=== PATIENT | female | born 1990 | race African-American/Black ===

== ENCOUNTER 2016-04-22 18:04 | Inpatient (IN) | payer OTHER ==
[~2016-04-22] VITALS: Ht 152.4 cm; Wt 48.8 kg
[~2016-04-22 18:04] MED LIST: ALBU1AER9 INH; BCPILLS PO; BECL0.072 INH; DICY20TA35 PO; FERR1TAB13 PO; HYOS0.1255 PO; LORA10CA2 PO; MAGN400T6 PO; MYCO500T4 PO; TACR1CAP PO; URSO300C4 PO
[2016-04-22] MEDS ORDERED: QVRINH80 INH (18:41)
[2016-04-22] MEDS ORDERED: ALBU18002 INH (18:41)
[2016-04-22 20:20] LABS: HEMATOCRIT 23.3 % (37-47); MEAN CORPUSCULAR HEMOGLOBIN 21.9 pg (25-34); MEAN CORPUSCULAR HGB CONC 29.6 g/dl (32-36); PLATELET COUNT 102 K/uL (130-400); RED BLOOD COUNT 3.15 M/uL (4.2-5.4); WHITE BLOOD COUNT 2.44 K/uL (4.8-10.8)
[2016-04-22 20:23] LABS: ALT/SGPT 50 U/L (12-78); BLOOD UREA NITROGEN 8 mg/dl (7-18); BUN/CREATININE RATIO 14.2 (10-20); CALCIUM 8.3 mg/dl (8.5-10.1); CARBON DIOXIDE 21 mmol/L (21-32); CHLORIDE 111 mmol/L (98-107); CREATININE 0.55 mg/dl (0.60-1.20); GLUCOSE 102 mg/dl (70-99); POTASSIUM 3.9 mmol/L (3.5-5.1); SODIUM 142 mmol/L (136-145)
[2016-04-22 20:26] LABS: ALB/GLOB RATIO 0.7 (0.9-2); ALKALINE PHOSPHATASE 307 U/L (45-117); AST/SGOT 39 U/L (15-37)
[2016-04-22 20:43] LABS: BASO % 0.4 %; BASO ABS # 0.01 K/uL (0-0.2); COMPLETE YES; EOS % 10.2 %; GIANT PLATELETS 1+; HYPOCHROMIA PRESENT; LYMPH ABS # 0.39 K/uL (1.2-3.4); MONO % 3.3 %; NEUT % 70.1 %; OVALOCYTES 1+; SCHISTOCYTES 1+
[2016-04-22 21:35] LABS: MAGNESIUM 1.6 mg/dl (1.8-2.4); THYROID STIMULATING HORMONE 1.54 uIu/ml (0.300-4.500)
--- NOTE | 2016-04-22 22:27 | DIAGNOSTIC IMAGING REPORT ---
CHEST ONE VIEW PORTABLE CLINICAL HISTORY: sob dyspnea COMPARISON STUDY: 09/10/2015 FINDINGS: Small parenchymal infiltrate medial right base. Lungs otherwise appear clear. Lateral diaphragms smooth. Costophrenic angles are sharp. IMPRESSION: Very small parenchymal infiltrate medial right base Electronically signed by: Peng Soliz M.D. 04/22/2016 10:25 PM Dictated Date/Time: 04/22/2016 10:25 PM
[2016-04-22] MEDS ORDERED: LEVALBUTEROL/IPRATROPIUM NEB INH PRN (22:30)
[2016-04-22] MEDS ORDERED: LORAZEPAM 2 MG/ML 1 ML VIAL IV PRN (22:30)
[2016-04-22] MEDS ORDERED: ACETAMINOPHEN 325 MG TAB PO PRN (22:30)
[2016-04-22] MEDS ORDERED: MoRPHine SULFATE 2 MG/ML CARP IV PRN (22:30)
[2016-04-22] MEDS ORDERED: ONDANSETRON INJ 2 MG/ML 2 ML VIAL IV PRN (22:30)
[2016-04-22 22:33] LABS: INR 1.1 (0.9-1.1); PROTHROMBIN TIME (PATIENT) 11.7 SECONDS (9.0-12.0)
--- NOTE | 2016-04-22 22:59 | EMERGENCY ROOM VISIT NOTE ---
History Report prepared by Susana: Elie De Leon Under the Supervision of: Dr. Freddie Rock M.D. First contact with patient: 19:52 Chief Complaint: ABNORMAL LABS Stated Complaint: LOW BLOOD COUNT,HEADACHE,LOW BACK/LEG PAIN History of Present Illness The patient is a 26 year old female who presents to the Emergency Room with complaints of acute anemia. The patient had her blood drawn two days ago, which showed a hemoglobin that was under 7. The patient's father states that "she needs some blood." The patient noticed some bright red blood in her stools today. She also became lightheaded and short of breath at approximately 1200 today. The patient denies any fevers or melena. She has chronic abdominal pain which is unchanged over the past 6 months. The patient follows up with the [facility], but notes that she has not seen her PCP recently. She also follows up with the [facility] team as she has had two liver transplants. The patient has needed transfusions before. The patient has irregular menstrual cycles. She is not currently on her period. Her last period was not excessively heavy. She has had workup for anemia which did not reveal any etiology. Source of History: patient, parent Onset: two days ago Position: other (hemoglobin) Symptom Intensity: less than 7 Quality: other (anemic) Associated Symptoms: + SOB, + hematochezia, No fevers, No melena Note: Positive lightheadedness. Review of Systems See HPI for pertinent positives & negatives. A total of 10 systems reviewed and were otherwise negative. Past Medical & Surgical Medical Problems: (1) Anemia (2) Congenital biliary atresia (3) Gastrointestinal hemorrhage (4) Symptomatic anemia (5) Transplantation of liver Surgical Problems: (1) H/O colonoscopy (2) H/O liver transplant (3) History of esophagogastroduodenoscopy (EGD) Family History Patient reports no known family medical history. Social History Smoking Status: Never Smoker Alcohol Use: none Drug Use: none Marital Status: single Housing Status: lives with family Occupation Status: employed Current/Historical Medications Scheduled Beclomethasone Dip (Qvar), 1 PUFF INH BID Control Pills ( Control Pills), 1 TAB PO DAILY Dicyclomine Hcl (Bentyl), 20 MG PO QPM Ferrous Sulfate (Kp Ferrous Sulfate), 1 TAB PO BID Loratadine (Claritin), 1 CAP PO BID Mycophenolate Mofetil (Cellcept), 2 TAB PO QAM Tacrolimus (Prograf), 3 CAP PO BID Ursodiol (Actigall), 300 MG PO BID Scheduled PRN Albuterol Sulfate (Proair Respiclick), 2 PUFFS INH QID PRN for Wheezing Allergies Coded Allergies: No Known Allergies (Unverified , 04/22/16) Physical Exam Vital Signs Date Time Temp Pulse Resp B/P Pulse Ox O2 Delivery O2 Flow Rate FiO2 04/22/16 22:36 112 16 129/78 100 Room Air 04/22/16 20:56 106 20 111/63 98 Room Air 04/22/16 18:27 37.3 115 18 122/79 100 Room Air Physical Exam Constitutional: Vital signs reviewed. Eyes: Pupils are equal round reactive to light. Conjunctiva are noninjected. ENT: Pharynx is clear without erythema or exudate. Mucous membranes are moist. Neck supple without meningeal signs. Respiratory: Clear to auscultation bilaterally. Breath sounds are equal bilaterally. Cardiovascular: Regular rate and rhythm. No rubs or gallops. GI: Diffuse scarring to the abdomen. No tenderness. Bowel sounds are present. Musculoskeletal: No peripheral edema. Integumentary: No cyanosis. Neurological: The patient is awake and alert. No focal deficits. Psychiatric: Normal affect. Rectal: No fissures or hemorrhoids. Brown stool without gross blood. There was blood around the genital region. Guaiac positive, possible menstrual blood contamination. Medical Decision & Procedures Laboratory Results 04/22/16 19:54 Red Blood Count 3.15, Mean Corpuscular Volume 74.0, Mean Corpuscular Hemoglobin 21.9, Mean Corpuscular Hemoglobin Concent 29.6, Neutrophils (%) (Auto) 70.1, Lymphocytes (%) (Auto) 16.0, Monocytes (%) (Auto) 3.3, Eosinophils (%) (Auto) 10.2, Basophils (%) (Auto) 0.4, Neutrophils # (Auto) 1.71, Lymphocytes # (Auto) 0.39, Monocytes # (Auto) 0.08, Eosinophils # (Auto) 0.25, Basophils # (Auto) 0.01 04/22/16 19:54 Test 04/22/16 19:54 04/22/16 22:12 White Blood Count 2.44 K/uL (4.8-10.8) Red Blood Count 3.15 M/uL (4.2-5.4) Hemoglobin 6.9 g/dL (12.0-16.0) Hematocrit 23.3 % (37-47) Mean Corpuscular Volume 74.0 fL (80-100) Mean Corpuscular Hemoglobin 21.9 pg (25-34) Mean Corpuscular Hemoglobin Concent 29.6 g/dl (32-36) Platelet Count 102 K/uL (130-400) Neutrophils (%) (Auto) 70.1 % Lymphocytes (%) (Auto) 16.0 % Monocytes (%) (Auto) 3.3 % Eosinophils (%) (Auto) 10.2 % Basophils (%) (Auto) 0.4 % Neutrophils # (Auto) 1.71 K/uL (1.4-6.5) Lymphocytes # (Auto) 0.39 K/uL (1.2-3.4) Monocytes # (Auto) 0.08 K/uL (0.11-0.59) Eosinophils # (Auto) 0.25 K/uL (0-0.5) Basophils # (Auto) 0.01 K/uL (0-0.2) RDW Standard Deviation 49.5 fL (36.4-46.3) RDW Coefficient of Variation 18.1 % (11.5-14.5) Immature Granulocyte % (Auto) 0.0 % Immature Granulocyte # (Auto) 0.00 K/uL (0.00-0.02) Giant Platelets 1+ Hypochromasia PRESENT Ovalocytes 1+ Schistocytes 1+ Anion Gap 10.0 mmol/L (3-11) Est Creatinine Clear Calc Drug Dose 113.3 ml/min Estimated GFR () > 150.0 Estimated GFR (Non- 131.3 BUN/Creatinine Ratio 14.2 (10-20) Calcium Level 8.3 mg/dl (8.5-10.1) Magnesium Level 1.6 mg/dl (1.8-2.4) Total Bilirubin 0.4 mg/dl (0.2-1) Aspartate Amino Transf (AST/SGOT) 39 U/L (15-37) Alanine Aminotransferase (ALT/SGPT) 50 U/L (12-78) Alkaline Phosphatase 307 U/L (45-117) Total Protein 6.5 gm/dl (6.4-8.2) Albumin 2.7 gm/dl (3.4-5.0) Globulin 3.8 gm/dl (2.5-4.0) Albumin/Globulin Ratio 0.7 (0.9-2) Thyroid Stimulating Hormone (TSH) 1.540 uIu/ml (0.300-4.500) Prothrombin Time 11.7 SECONDS (9.0-12.0) Prothromb Time International Ratio 1.1 (0.9-1.1) Activated Partial Thromboplast Time 25.0 SECONDS (21.0-31.0) Partial Thromboplastin Ratio 1.0 Laboratory results as reviewed by me. ED Course 1954: The patient was evaluated in room B6. A complete history and physical exam was performed. 2029: Discussed the results with her and her father. 2034: Spoke with Rossana Michael. The patient will be evaluated. Medical Decision This is a 26-year-old female presents with severe anemia. I did perform a limited focused review of portions of the patient's old chart on the electronic medical record. The patient had a hemoglobin of 7.2 in December of last year. I did evaluate the patient as noted above. The patient complained of rectal bleeding but she just recently had her menstrual period. When I performed a rectal examination she had what appeared to be menstrual blood near her genitalia. Her rectal examination showed guaiac positive brown stool but this was likely contaminated from her menstrual blood. IV access was established. I did review the patient's blood work as noted in the electronic medical record. She is severely anemic. She also has pancytopenia. I did recommend admission and transfusion. I did discuss case with the hospitalist and showcase maker. Consults Time Called: 2029 Consulting Physician: Rossana Michael Returned Call: 2034 2034: Spoke with Rossana Michael. The patient will be evaluated. Impression Primary Impression: Symptomatic anemia Additional Impressions: Pancytopenia Transplantation of liver Scribe Attestation The scribe's documentation has been prepared under my direct and personally reviewed by me in its entirety. I confirm that the note above accurately reflects all work, treatment, procedures, and medical decision making performed by me. Departure Information Dispostion Being Evaluated By Hospitalist Referrals Julia Ibrahim PA-C (PCP) Patient Instructions My [facility] Problem Qualifiers
[2016-04-22] MEDS ORDERED: MAGNESIUM SULFATE 1GM / D5W 1 GM BAG IV SCH (23:00)
[2016-04-22] MEDS ORDERED: LORAZEPAM INJ 0.5 MG in SYRINGE 0.75 ML IV PRN (23:15)
[2016-04-22] MEDS ORDERED: LEVALBUTEROL 1.25MG/0.5ML NEB INH PRN (23:15)
[2016-04-22] MEDS ORDERED: IPRATROPIUM BROMIDE NEB SOLN 0.02% 2.5 ML VIAL INH PRN (23:15)
[2016-04-22] MEDS ORDERED: MAGNESIUM SULFATE 1GM / D5W 1 GM in PREMIXED IN D5W 100 ML IV ONE (23:30)
[2016-04-23] VITALS (13 sets, daily range): BP systolic 107–128; BP diastolic 65–85; PULSE 89–109; TEMP 36.9–37.3; O2SAT 96–100; Ht 152.4 cm; Wt 48.8 kg
[2016-04-23] MEDS: TRAMADOL HCL 50 MG TAB PO PRN ×2 (00:14→23:59)
[2016-04-23 05:37] LABS: MANUAL MICROSCOPIC REQUIRED? YES; PREG INTERNAL NEGATIVE QC NEG CLEAR BACKGROUND; PREG INTERNAL POSITIVE QC POS CONTROL LINE; URINE APPEARANCE TURBID (CLEAR); URINE BILIRUBIN NEG (NEG); URINE COLOR RED; URINE NITRITE NEG (NEG); URINE PH 6.5 (4.5-7.5); URINE SPECIFIC GRAVITY 1.025 (1.000-1.030); UROBILINOGEN NEG (NEG)
[2016-04-23 05:39] LABS: REVIEW REQ? NO
[2016-04-23 05:42] LABS: URINE RBC >30 /hpf (0-4)
[2016-04-23 05:43] LABS: URINE BACTERIA NEG (NEG)
--- NOTE | 2016-04-23 05:58 | DIAGNOSTIC IMAGING REPORT ---
[facility] ultrasound (LIVER) ABDOMEN LIMITED CLINICAL HISTORY: r abd pain posse cirrhosis pain TECHNIQUE: Ultrasound COMPARISON STUDY: FINDINGS: Fatty infiltration of liver. Prior liver transplant. Right kidney negative for hydronephrosis. Main structures poorly seen due to overlying bowel content. IMPRESSION: Fatty infiltration of liver. No evidence of biliary ductal distention. Prior transplant. Electronically signed by: Peng Soliz M.D. 04/23/2016 5:57 AM Dictated Date/Time: 04/23/2016 5:55 AM
[2016-04-23 06:10] LABS: HEMATOCRIT 24.8 % (37-47); MEAN CELL VOLUME 73.2 fL (80-100); MEAN CORPUSCULAR HEMOGLOBIN 22.7 pg (25-34); RED BLOOD COUNT 3.39 M/uL (4.2-5.4); WHITE BLOOD COUNT 2.55 K/uL (4.8-10.8)
[2016-04-23 06:20] LABS: BASO % 0.4 %; BASO ABS # 0.01 K/uL (0-0.2); COMPLETE YES; EOS % 11.8 %; IG% 0.4 %; LYMPH % 17.6 %; LYMPH ABS # 0.45 K/uL (1.2-3.4); MONO % 3.9 %; NEUT % 65.9 %; PLATELET COUNT 89 K/uL (130-400); PLT ESTIMATE DECREASED; TEAR DROP CELLS 1+
[2016-04-23 06:34] LABS: BLOOD UREA NITROGEN 7 mg/dl (7-18); BUN/CREATININE RATIO 12.9 (10-20); CALCIUM 7.8 mg/dl (8.5-10.1); CARBON DIOXIDE 22 mmol/L (21-32); CHLORIDE 110 mmol/L (98-107); CREATININE 0.53 mg/dl (0.60-1.20); GLUCOSE 107 mg/dl (70-99); POTASSIUM 3.9 mmol/L (3.5-5.1); SODIUM 140 mmol/L (136-145)
[2016-04-23 06:47] LABS: LARGE PLATELETS 1+
--- NOTE | 2016-04-23 07:03 | HISTORY & PHYSICAL EXAMINATION ---
DATE OF ADMISSION: 04/22/2016 PRIMARY CARE PHYSICIAN: Julia Ibrahim PA-C, Carl Tracy. Hx obtained from px and records. CHIEF COMPLAINT: Anemia, abnormal blood work. HISTORY OF PRESENT ILLNESS: Medical history significant for history of biliary atresia status post liver transplantation on CellCept, Prograf meds, chronic pancytopenia (baseline hemoglobin of 7-8), hx internal hemorrhoids. Hypothyroidism. Recent confinement September 2015 for acute on chronic iron deficiency anemia. Patient underwent blood transfusion. EGD normal. Patient was seen at the ER last November of 2015 for abdominal pain. CAT scan showed no acute process in the abdomen and pelvis, mild appendiceal dilatation, stable appearance of a transplanted liver with mild periportal edema pneumobilia. No significant change in splenomegaly, upper abdominal varices. The last few days, patient noted headache, tachycardia, shortness of breath on exertion, symptoms of anemia as per px. denies cp, cough sx Some vaginal bleeding with usual cramps. Patient not sure of she has her period due to irregular menses as per father. Usual achy abdominal pain more on the right. Hematochezia, some blood streaking noted in the stools yesterday. No fever/chills. Outpatient blood work noted hemoglobin of 7.2. [facility]'s [facility] ship fastener (Dr. Nelson) recommended transfusion. MEDICAL HISTORY: As above. Patient currently following up with [facility]ematology and [facility], and [place] [facility]. Patient supposed to meet with patient's ship fastener May 05 to discuss etiology of anemia w/ results of recent bone marrow studies. Colonoscopy in 2016 showed internal hemorrhoids. SURGERIES: She had liver transplantation HOME MEDICATIONS: Include CellCept, Prograf, Actigall ProAir, QVAR, control pills, Bentyl, ferrous sulfate, Claritin. ALLERGIES: No known drug allergies. FAMILY HISTORY: Unknown. ethnicity, px adopted PERSONAL AND SOCIAL HISTORY: Nonsmoker. No chronic intake of alcoholic beverages. 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 REVIEW OF SYSTEMS: As per HPI, all other ROS negative. PHYSICAL EXAMINATION: VITAL SIGNS: Blood pressure was noted to be 119/80, pulse rate 109, respiratory rate 18, temperature 38, sats 100 on room air. GENERAL: Comfortable, no respiratory distress. SKIN: Pallor. HEENT: Pale palpebral conjunctivae. Dry mucosa. NECK: No JVD. supple CHEST: Decreased breath sounds. HEART: Tachycardic. ABDOMEN: healed abd sars. No overt tenderness, some distention. EXTREMITIES: No edema, no tenderness. NEUROLOGIC: No gross focality. LABS: Hemoglobin was noted to be 6.9, hematocrit 20.3, white cells 2, platelets 102. Sodium 140, potassium 3.9, chloride 111, CO2 of 21, BUN 8, creatinine 0.65, glucose 102. TSH 1.64. AST 39, ALT N, ALP 307 Chest x-ray; atelectasis, question of infiltrate in the L base. Liver ultrasound initial read showed echogenic heterogenous liver, hepatomegaly 17.8 cm, no ascites. ASSESSMENT: 1. Symptomatic anemia history of chronic pancytopenia Hg drop from baseline 2 to slow GI bleed bleed contributory (occ vaginal bleeding- not a new problem as per px) 2. abn liver US varices and splenomegaly on CAT scan in November 2014. ? cirrhosis history of biliary atresia sp liver transplantation on Prograf and Cellcept 3. hypothyroidism, euthyroid as of today's TSH PLAN: Transfuse pRBC to maintain hemoglobin between 7-8 GI consult RE abn liver US ? possible cirrhosis. 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 DVT prophylaxis, SCDs. RE Thrombocytopenia. Full code. MTDD
[2016-04-23] MEDS: URSODIOL 300 MG CAP PO SCH ×2 (07:54→19:47)
[2016-04-23] MEDS: TACROLIMUS 1 MG CAP PO SCH ×2 (07:55→19:47)
[2016-04-23] MEDS: MYCOPHENOLATE MOFETIL 250 MG CAP (CELLCEPT) PO SCH (07:55)
[2016-04-23] MEDS: LORATADINE 10 MG TAB PO SCH ×2 (07:55→19:47)
[2016-04-23] MEDS: BECLOMETHASONE DIP HFA 80 MCG 8.7G INH INH SCH ×2 (07:56→19:47)
[2016-04-23] MEDS: FERROUS SULFATE 325 MG TAB PO SCH ×2 (07:56→19:47)
[2016-04-23] MEDS ORDERED: INFLUENZA VIRUS QUAD VACCINE 0.5 ML SYR IM. ONE (08:00)
[2016-04-23] MEDS ORDERED: INFLUENZA ADMINISTRATION CHARGE ONE (08:00)
[2016-04-23 08:13] LABS: HYPOCHROMIA PRESENT; MICROCYTOSIS PRESENT
--- NOTE | 2016-04-23 09:55 | Progress Note ---
Medicine Progress Note Date & Time of Visit: Apr 23, 2016 at 09:45. Subjective patient seen resting in bed, comfortable in good spirits, states she feels improved today denies chest pain, dyspnea, dizziness, nausea no abdominal pain reports hematuria since last night, intermittent right flank pain and dysuria- mild no vaginal spotting denies hematochezia no other symptoms Objective Last 8 Hrs Date Time Temp Pulse Resp B/P Pulse Ox O2 Delivery O2 Flow Rate FiO2 04/23/16 07:11 36.9 96 18 110/72 98 Room Air 04/23/16 02:15 36.9 95 16 127/65 99 Physical Exam: General- oriented x 3, not in distress, speaks in sentences with no effort Head- atraumatic Eyes- EOMI, anicteric, pale conjunctivae Neck- supple, no JVD Lungs- clear to auscultation b/l Heart- regular rhythm; no murmur, normal rate Abdomen- normal bowel sounds, soft, nontender,no CVA tenderness Extremities- no pretibial edema, no calf tenderness Neuro- alert, oriented x 3; no gross deficits Skin- warm & dry Laboratory Results: Last 24 Hours Test 04/22/16 19:54 04/22/16 22:12 04/23/16 05:10 04/23/16 05:20 White Blood Count 2.44 K/uL 2.55 K/uL Red Blood Count 3.15 M/uL 3.39 M/uL Hemoglobin 6.9 g/dL 7.7 g/dL Hematocrit 23.3 % 24.8 % Mean Corpuscular Volume 74.0 fL 73.2 fL Mean Corpuscular Hemoglobin 21.9 pg 22.7 pg Mean Corpuscular Hemoglobin Concent 29.6 g/dl 31.0 g/dl Platelet Count 102 K/uL 89 K/uL Neutrophils (%) (Auto) 70.1 % 65.9 % Lymphocytes (%) (Auto) 16.0 % 17.6 % Monocytes (%) (Auto) 3.3 % 3.9 % Eosinophils (%) (Auto) 10.2 % 11.8 % Basophils (%) (Auto) 0.4 % 0.4 % Neutrophils # (Auto) 1.71 K/uL 1.68 K/uL Lymphocytes # (Auto) 0.39 K/uL 0.45 K/uL Monocytes # (Auto) 0.08 K/uL 0.10 K/uL Eosinophils # (Auto) 0.25 K/uL 0.30 K/uL Basophils # (Auto) 0.01 K/uL 0.01 K/uL RDW Standard Deviation 49.5 fL 47.4 fL RDW Coefficient of Variation 18.1 % 17.5 % Immature Granulocyte % (Auto) 0.0 % 0.4 % Immature Granulocyte # (Auto) 0.00 K/uL 0.01 K/uL Giant Platelets 1+ Hypochromasia PRESENT PRESENT Ovalocytes 1+ Schistocytes 1+ Sodium Level 142 mmol/L 140 mmol/L Potassium Level 3.9 mmol/L 3.9 mmol/L Chloride Level 111 mmol/L 110 mmol/L Carbon Dioxide Level 21 mmol/L 22 mmol/L Anion Gap 10.0 mmol/L 8.0 mmol/L Blood Urea Nitrogen 8 mg/dl 7 mg/dl Creatinine 0.55 mg/dl 0.53 mg/dl Est Creatinine Clear Calc Drug Dose 113.3 ml/min 117.6 ml/min Estimated GFR () > 150.0 > 150.0 Estimated GFR (Non- 131.3 132.9 BUN/Creatinine Ratio 14.2 12.9 Random Glucose 102 mg/dl 107 mg/dl Calcium Level 8.3 mg/dl 7.8 mg/dl Magnesium Level 1.6 mg/dl 2.0 mg/dl Total Bilirubin 0.4 mg/dl Aspartate Amino Transf (AST/SGOT) 39 U/L Alanine Aminotransferase (ALT/SGPT) 50 U/L Alkaline Phosphatase 307 U/L Total Protein 6.5 gm/dl Albumin 2.7 gm/dl Globulin 3.8 gm/dl Albumin/Globulin Ratio 0.7 Thyroid Stimulating Hormone (TSH) 1.540 uIu/ml Prothrombin Time 11.7 SECONDS Prothromb Time International Ratio 1.1 Activated Partial Thromboplast Time 25.0 SECONDS Partial Thromboplastin Ratio 1.0 Platelet Estimate DECREASED Large Platelets 1+ Microcytosis PRESENT Tear Drop Cells 1+ Urine Color RED Urine Appearance TURBID Urine pH 6.5 Urine Specific [place] 1.025 Urine Protein TRACE Urine Glucose (UA) NEG Urine Ketones NEG Urine Occult Blood 3+ Urine Nitrite NEG Urine Bilirubin NEG Urine Urobilinogen NEG Urine Leukocyte Esterase NEG Urine RBC >30 /hpf Urine WBC 10-30 /hpf Urine Epithelial Cells 5-10 /lpf Urine Bacteria NEG Urine Test NEG Assessment & Plan 26 year old female with history of Biliary Atresia s/p Liver Transplant, Iron deficiency Anemia, Asthma... 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 BILIARY ATRESIA S/P LIVER TRANSPLANT - on Cellcept, Tacrolimus ASTHMA on QVAR PANCYTOPENIA WBC and Plt stable DVT prophylaxis SCDs Disposition pending anticipate d/c home when medically stable Current Inpatient Medications: Current Inpatient Medications Medications (Trade) Dose Ordered Sig/Harley Route Start Time Stop Time Status Last Admin Dose Admin Acetaminophen (Tylenol Tab) 325 mg Q6H PRN PO 04/22/16 22:30 05/22/16 22:29 04/23/16 09:41 325 MG Beclomethasone Dipropionate (Qvar 80 Mcg Hfa Inhaler) 1 puffs BID INH 04/23/16 08:00 05/23/16 08:59 04/23/16 07:56 1 PUFFS Dicyclomine HCl (Bentyl Tab) 20 mg QPM PO 04/23/16 21:00 05/23/16 20:59 Loratadine (Claritin Tab) 10 mg BID PO 04/23/16 08:00 05/23/16 08:59 04/23/16 07:55 10 MG Mycophenolate Mofetil (Cellcept Cap) 1,000 mg QAM PO 04/23/16 08:00 05/23/16 08:59 04/23/16 07:55 1,000 MG Tacrolimus (Prograf Cap) 3 mg BID PO 04/23/16 08:00 05/23/16 08:59 04/23/16 07:55 3 MG Ursodiol (Actigall Cap) 300 mg BID PO 04/23/16 08:00 05/23/16 08:59 04/23/16 07:54 300 MG Ferrous Sulfate (Feosol Tab) 325 mg BID PO 04/23/16 08:00 05/23/16 08:59 Lorazepam (Ativan Inj) 0.5 mg Q4H PRN IV 04/22/16 22:30 05/22/16 22:29 Tramadol HCl (Ultram Tab) 25 mg Q6H PRN PO 04/22/16 22:30 05/22/16 22:29 04/23/16 00:14 25 MG Morphine Sulfate (MoRPHine SULFATE INJ) 2 mg Q3H PRN IV 04/22/16 22:30 05/06/16 22:29 Ondansetron HCl (Zofran Inj) 4 mg Q6H PRN IV 04/22/16 22:30 05/22/16 22:29 Ipratropium Arvonia (Atrovent 0.02% 0.5MG/2.5ML Neb) 0.5 mg Q4H PRN INH 04/22/16 23:15 05/22/16 23:14 Levalbuterol 1.25 mg 1.25 mg Q4H PRN INH 04/22/16 23:15 05/22/16 23:14 Lorazepam/Syringe (Ativan Inj/ Syringe) 1 ml @ 1 mls/min Q4H PRN IV 04/22/16 23:15 05/22/16 23:14
--- NOTE | 2016-04-23 11:21 | Urology Consultation ---
History General Date of Service: Apr 23, 2016. Chief Complaint: gross hematuria Primary Care Physician: Julia Ibrahim PA-C History of Present Illness I am asked by Dr Weaver to evaluate and treat patient for gross hematuria. She is admitted with anemia for transfusion. She has had gross hematuria in past with utis. Her urine is red and has clots. She has mild dysuria. She has been given ceftriaxone. She has right flank pain with is dull and causes pressure in her low back and abdomen. No nausea or emesis. U/A in ER showed blood but no LE or nitrites. Imaging Imaging: CT, Ultrasound Laboratory Results Past 24 Hours Test 04/22/16 19:54 04/22/16 22:12 04/23/16 05:10 04/23/16 05:20 Range/Units White Blood Count 2.44 2.55 4.8-10.8 K/uL Red Blood Count 3.15 3.39 4.2-5.4 M/uL Hemoglobin 6.9 7.7 12.0-16.0 g/dL Hematocrit 23.3 24.8 37-47 % Mean Corpuscular Volume 74.0 73.2 80-100 fL Mean Corpuscular Hemoglobin 21.9 22.7 25-34 pg Mean Corpuscular Hemoglobin Concent 29.6 31.0 32-36 g/dl Platelet Count 102 89 130-400 K/uL Neutrophils (%) (Auto) 70.1 65.9 % Lymphocytes (%) (Auto) 16.0 17.6 % Monocytes (%) (Auto) 3.3 3.9 % Eosinophils (%) (Auto) 10.2 11.8 % Basophils (%) (Auto) 0.4 0.4 % Neutrophils # (Auto) 1.71 1.68 1.4-6.5 K/uL Lymphocytes # (Auto) 0.39 0.45 1.2-3.4 K/uL Monocytes # (Auto) 0.08 0.10 0.11-0.59 K/uL Eosinophils # (Auto) 0.25 0.30 0-0.5 K/uL Basophils # (Auto) 0.01 0.01 0-0.2 K/uL RDW Standard Deviation 49.5 47.4 36.4-46.3 fL RDW Coefficient of Variation 18.1 17.5 11.5-14.5 % Immature Granulocyte % (Auto) 0.0 0.4 % Immature Granulocyte # (Auto) 0.00 0.01 0.00-0.02 K/uL Giant Platelets 1+ Hypochromasia PRESENT PRESENT Ovalocytes 1+ Schistocytes 1+ Sodium Level 142 140 136-145 mmol/L Potassium Level 3.9 3.9 3.5-5.1 mmol/L Chloride Level 111 110 98-107 mmol/L Carbon Dioxide Level 21 22 21-32 mmol/L Anion Gap 10.0 8.0 3-11 mmol/L Blood Urea Nitrogen 8 7 7-18 mg/dl Creatinine 0.55 0.53 0.60-1.20 mg/dl Est Creatinine Clear Calc Drug Dose 113.3 117.6 ml/min Estimated GFR () > 150.0 > 150.0 Estimated GFR (Non- 131.3 132.9 BUN/Creatinine Ratio 14.2 12.9 10-20 Random Glucose 102 107 70-99 mg/dl Calcium Level 8.3 7.8 8.5-10.1 mg/dl Magnesium Level 1.6 2.0 1.8-2.4 mg/dl Total Bilirubin 0.4 0.2-1 mg/dl Aspartate Amino Transf (AST/SGOT) 39 15-37 U/L Alanine Aminotransferase (ALT/SGPT) 50 12-78 U/L Alkaline Phosphatase 307 45-117 U/L Total Protein 6.5 6.4-8.2 gm/dl Albumin 2.7 3.4-5.0 gm/dl Globulin 3.8 2.5-4.0 gm/dl Albumin/Globulin Ratio 0.7 0.9-2 Thyroid Stimulating Hormone (TSH) 1.540 0.300-4.500 uIu/ml Prothrombin Time 11.7 9.0-12.0 SECONDS Prothromb Time International Ratio 1.1 0.9-1.1 Activated Partial Thromboplast Time 25.0 21.0-31.0 SECONDS Partial Thromboplastin Ratio 1.0 Platelet Estimate DECREASED Large Platelets 1+ Microcytosis PRESENT Tear Drop Cells 1+ Urine Color RED Urine Appearance TURBID CLEAR Urine pH 6.5 4.5-7.5 Urine Specific [place] 1.025 1.000-1.030 Urine Protein TRACE NEG Urine Glucose (UA) NEG NEG Urine Ketones NEG NEG Urine Occult Blood 3+ NEG Urine Nitrite NEG NEG Urine Bilirubin NEG NEG Urine Urobilinogen NEG NEG Urine Leukocyte Esterase NEG NEG Urine RBC >30 0-4 /hpf Urine WBC 10-30 0-5 /hpf Urine Epithelial Cells 5-10 0-5 /lpf Urine Bacteria NEG NEG Urine Test NEG NEG Labs were reviewed and are within normal limits unless listed below. Labs are available in the chart and at [facility] Problem List Medical Problems: (1) Abdominal pain Status: Acute (2) Pancytopenia Status: Acute (3) Right lower quadrant abdominal pain Status: Acute (4) RLQ abdominal pain Status: Acute Past History liver disease (s/p liver transplant as a child ) Family History Patient reports no known family medical history. not contributory for this issue Social History Hx Tobacco Use In Past Year?: No Smoking: non-smoker Alcohol: never Marital status: single Housing status: lives with family Occupation status: employed Allergies Coded Allergies: No Known Allergies (Unverified , 04/22/16) Medications Home Medications: Home Meds and Scripts Medications Dose Route/Sig Max Daily Dose Days Date Category Qvar (Beclomethasone Dip) 80 Mcg/Act Aer 1 Puff INH BID 04/22/16 Reported Proair Respiclick (Albuterol Sulfate) 108 Mcg/Act Aer 2 Puffs INH QID PRN 04/22/16 Reported Control Pills (Miscellaneous) Tab 1 Tab PO DAILY 12/01/15 Reported Kp Ferrous Sulfate (Ferrous Sulfate) 325 Mg Tab 1 Tab PO BID 10/14/15 Reported Claritin (Loratadine) 10 Mg Cap 1 Cap PO BID 09/10/15 Reported Cellcept (Mycophenolate Mofetil) 500 Mg Tab 2 Tab PO QAM 04/13/15 Reported Bentyl (Dicyclomine Hcl) 20 Mg Tab 20 Mg PO QPM 04/03/15 Reported Prograf (Tacrolimus) 1 Mg Cap 3 Cap PO BID 04/03/15 Reported Actigall (Ursodiol) 300 Mg Cap 300 Mg PO BID 11/21/12 Reported Inpatient Medications: Current Inpatient Medications Medications (Trade) Dose Ordered Sig/Harley Route Start Time Stop Time Status Last Admin Dose Admin Acetaminophen (Tylenol Tab) 325 mg Q6H PRN PO 04/22/16 22:30 05/22/16 22:29 04/23/16 09:41 325 MG Beclomethasone Dipropionate (Qvar 80 Mcg Hfa Inhaler) 1 puffs BID INH 04/23/16 08:00 05/23/16 08:59 04/23/16 07:56 1 PUFFS Dicyclomine HCl (Bentyl Tab) 20 mg QPM PO 04/23/16 21:00 05/23/16 20:59 Loratadine (Claritin Tab) 10 mg BID PO 04/23/16 08:00 05/23/16 08:59 04/23/16 07:55 10 MG Mycophenolate Mofetil (Cellcept Cap) 1,000 mg QAM PO 04/23/16 08:00 05/23/16 08:59 04/23/16 07:55 1,000 MG Tacrolimus (Prograf Cap) 3 mg BID PO 04/23/16 08:00 05/23/16 08:59 04/23/16 07:55 3 MG Ursodiol (Actigall Cap) 300 mg BID PO 04/23/16 08:00 05/23/16 08:59 04/23/16 07:54 300 MG Ferrous Sulfate (Feosol Tab) 325 mg BID PO 04/23/16 08:00 05/23/16 08:59 Lorazepam (Ativan Inj) 0.5 mg Q4H PRN IV 04/22/16 22:30 05/22/16 22:29 Tramadol HCl (Ultram Tab) 25 mg Q6H PRN PO 04/22/16 22:30 05/22/16 22:29 04/23/16 00:14 25 MG Morphine Sulfate (MoRPHine SULFATE INJ) 2 mg Q3H PRN IV 04/22/16 22:30 05/06/16 22:29 Ondansetron HCl (Zofran Inj) 4 mg Q6H PRN IV 04/22/16 22:30 05/22/16 22:29 Ipratropium [place] (Atrovent 0.02% 0.5MG/2.5ML Neb) 0.5 mg Q4H PRN INH 04/22/16 23:15 05/22/16 23:14 Levalbuterol 1.25 mg 1.25 mg Q4H PRN INH 04/22/16 23:15 05/22/16 23:14 Lorazepam 0.5 mg/ Syringe 1 ml @ 1 mls/min Q4H PRN IV 04/22/16 23:15 05/22/16 23:14 Ceftriaxone Sodium/Dextrose (Rocephin Inj/ Dextrose Add-[place] 50ML) 50 ml @ 100 mls/hr Q24H IV 04/23/16 10:00 04/28/16 09:59 UNV Review of Systems Review of Systems Constitutional: No fever Neurological: + dizzy Endocrine: + tired/sluggish, + too cold, No excessive thirst, No too hot Gastrointestinal: + abdominal pain, No constipation, No nausea, No vomiting Cardiovascular: No chest pain, No palpitations, No swelling ankles/feet Female : + blood in urine, + painful urination, No frequent urination Physical Exam Vital Signs: Vital Signs Past 12 Hours Date Time Temp Pulse Resp B/P Pulse Ox O2 Delivery O2 Flow Rate FiO2 04/23/16 08:00 Room Air 04/23/16 07:11 36.9 96 18 110/72 98 Room Air 04/23/16 02:15 36.9 95 16 127/65 99 04/23/16 01:10 37.3 105 20 113/69 98 04/23/16 00:40 37.0 101 20 107/67 100 04/23/16 00:20 37.1 104 16 108/71 100 04/23/16 00:05 37.2 103 18 112/70 100 04/23/16 00:00 37.3 109 18 119/76 100 Room Air Physical Exam: General Appearance: no apparent distress, + thin Eyes: bilateral eyes normal inspection ENT: hearing grossly normal Neck: supple, no adenopathy, trachea midline Respiratory/Chest: normal breath sounds, no respiratory distress, no accessory muscle use Gastrointestinal: Abdomen: pertinent finding (numerous surgical incisions healed primarily and secondarily. no mass, no hernia. + RUQ tenderness, + mildly distended) Extremities: non-tender, no calf tenderness Neurologic/Psychiatric: alert, normal mood/affect, oriented x 3 Skin: normal color, warm/dry, no rash Assessment & Plan Assessment & Plan gross hematuria CT scan from 11/21 and ruq u/s rule out stone or malignancy as source this it is inflammation and or infection. I suspect it will resolve itself. I do not plan cysto as I think it has no chance of uncovering pathology yet is invasive and carries risk of causing uti. urine being sent for culture abt if +.
[2016-04-23 12:33] LABS: HEMATOCRIT 26.7 % (37-47)
[2016-04-23] MEDS: CEFTRIAXONE SOD INJ 1 GM in DEXTROSE 5% ADD-VANTAGE 50ML 50 ML IV SCH (15:21)
--- NOTE | 2016-04-23 15:28 | GASTROINTESTINAL CONSULTATION ---
DATE OF CONSULTATION: 04/23/2016 DATE OF CONSULTATION: 04/23/2016. REFERRED BY: Dr. Irizarry. HISTORY OF PRESENT ILLNESS: I was asked by William Irizarry to consult on this woman for evaluation of anemia and abnormal imaging of the GI tract. The patient is a 26-year-old who has a history of biliary atresia and liver transplant x2, most recently in 2006. Her initial liver transplant was in [place] at 10 months of age. She also has a long history of anemia, some chronic low-grade GI bleeding as well as some occasional hematuria. She presented to [facility] because she was found to be anemic by her regular doctor who referred her. She has denied any rectal bleeding. She has denied any hematemesis. She has had gross hematuria recently and recently during this admission seen by urology who has offered some suggestions about this and recommendations. She has had numerous upper and lower endoscopies, all within the past year or so not showing any obvious source of GI bleeding. She is followed regularly at [facility] for her liver transplant and hepatology followup. She is also being followed by hematology because of her chronic anemia as well. Part of her workup during this hospitalization also brought up concerns about abnormal imaging of her spleen with possible varices. PAST MEDICAL HISTORY: I reviewed her medical records and past medical history and her past medical history is significant for what is already mentioned above. OUTPATIENT MEDICATIONS: Include CellCept, Prograf, Actigall, control pills, Bentyl, iron, Claritin. ALLERGIES: She denies any drug allergies. FAMILY HISTORY: She is adopted so her family history is unknown. SOCIAL HISTORY: Not significant for smoking or drinking. REVIEW OF SYSTEMS: As above, otherwise she denies any recent fevers. She denies any recent icterus or jaundice. She has had no change in vision or hearing. She has had no migraines, headaches, seizures recently. She denies any painful urination. She denies any hematemesis, rectal bleeding or altered bowel habits that are new. She has had no recent joint swelling. She denies any change in gait or change in mood recently. She has not been out of the country recently. She denies any productive cough or recent palpitations. PHYSICAL EXAMINATION: GENERAL: Reveals a pleasant woman lying comfortably in bed in no distress. VITAL SIGNS: Her most recent temperature is 37.1, blood pressure is 128/83, pulse is 92. SKIN: Anicteric. HEAD, EYES, EARS, NOSE, AND THROAT: Eyes show anicteric sclerae. Mouth is clear of lesions. NECK: Supple, no adenopathy. CHEST: Clear. HEART: Regular rate and rhythm. ABDOMEN: Diffusely scarred from her 2 liver transplants, but is otherwise nontender. She has good bowel sounds. There are no obvious masses though her abdomen is firm because of scarring. EXTREMITIES: Warm with good distal pulses. No significant edema. NEUROLOGIC: She is alert and oriented x3 and neurologically grossly intact. LABORATORY DATA: Reveal hemoglobin on admission of 6.9 and after transfusion she is up to 8. INR was normal at 1.1. Liver chemistries shows an AST of 39, ALT of 50, alkaline phosphatase of 307, total bilirubin 0.4. An ultrasound of the liver revealed some fatty infiltration in the liver and again there were concerns on previous imaging of splenomegaly and possible abdominal varices. IMPRESSION: A 26-year-old woman status post 2 liver transplants with chronic anemia. Since she has no overt gross GI bleeding. I see no indication for repeat endoscopy. I would just transfuse her and she should follow up with hematology as an outpatient. As far as the findings on her abdominal imaging is concerned this is all typical for being status post liver transplant. She is being followed closely by them. There are no obvious signs of rejection at this point and I would just recommend she continue to follow with them as an outpatient. [place]ALE
[2016-04-23 18:58] LABS: HEMATOCRIT 29.1 % (37-47)
[2016-04-23] MEDS: DICYCLOMINE HCL 20 MG TAB PO SCH (19:47)
[2016-04-24 06:18] LABS: HEMATOCRIT 27.7 % (37-47); MEAN CELL VOLUME 73.9 fL (80-100); MEAN CORPUSCULAR HEMOGLOBIN 22.9 pg (25-34); RED BLOOD COUNT 3.75 M/uL (4.2-5.4); WHITE BLOOD COUNT 2.83 K/uL (4.8-10.8)
[2016-04-24 06:35] LABS: BASO % 0.4 %; BASO ABS # 0.01 K/uL (0-0.2); COMPLETE YES; EOS % 13.4 %; LARGE PLATELETS 1+; LYMPH % 17.3 %; LYMPH ABS # 0.49 K/uL (1.2-3.4); MONO % 4.6 %; NEUT % 64.3 %; PLATELET COUNT 95 K/uL (130-400); PLT ESTIMATE DECREASED; TEAR DROP CELLS 1+
[2016-04-24 06:39] LABS: BLOOD UREA NITROGEN 10 mg/dl (7-18); BUN/CREATININE RATIO 18.2 (10-20); CALCIUM 7.8 mg/dl (8.5-10.1); CARBON DIOXIDE 22 mmol/L (21-32); CHLORIDE 110 mmol/L (98-107); CREATININE 0.53 mg/dl (0.60-1.20); GLUCOSE 104 mg/dl (70-99); POTASSIUM 4.2 mmol/L (3.5-5.1); SODIUM 140 mmol/L (136-145)
[2016-04-24 07:23] VITALS: BP 109/74; PULSE 80; TEMP 36.7; O2SAT 99
[2016-04-24] MEDS: FERROUS SULFATE 325 MG TAB PO SCH ×2 (08:00→20:00)
[2016-04-24] MEDS: MYCOPHENOLATE MOFETIL 250 MG CAP (CELLCEPT) PO SCH (08:12)
[2016-04-24] MEDS: BECLOMETHASONE DIP HFA 80 MCG 8.7G INH INH SCH ×2 (08:12→20:08)
[2016-04-24] MEDS: TACROLIMUS 1 MG CAP PO SCH ×2 (08:12→20:08)
[2016-04-24] MEDS: LORATADINE 10 MG TAB PO SCH ×2 (08:13→20:08)
[2016-04-24] MEDS: URSODIOL 300 MG CAP PO SCH ×2 (08:13→20:08)
--- NOTE | 2016-04-24 09:55 | DIAGNOSTIC IMAGING REPORT ---
RENAL ULTRASOUND HISTORY: Nephrolithiasis r/o nephro/ureterolithiasis COMPARISON: None. FINDINGS: Right kidney: Partially 9 cm maximum dimension. No evidence for hydronephrosis. Normal corticomedullary differentiation and cortical thickness. Left kidney: No evidence for hydronephrosis. Approximate dimension 10.5 cm. Normal corticomedullary differentiation and cortical thickness. Bladder: Poorly seen. A trace amount pelvic ascites. Prior liver transplant. IMPRESSION: Somewhat limited exam. No evidence for obstructive change or hydronephrosis. Electronically signed by: Peng Soliz M.D. 04/24/2016 9:54 AM Dictated Date/Time: 04/24/2016 9:52 AM
--- NOTE | 2016-04-24 10:17 | Progress Note ---
Subjective Date of Service: Apr 24, 2016. Subjective Pt evaluation today including: conversation w/ patient, chart review, lab review Voiding: no voiding problems Patient reports no change. Urine still grossly bloody with clots. Her renal ultrasound was completely unremarkable and no clots seen stuck in bladder. No stones this time or on her ct scan Nov 2015. She has no cystitis symptoms. She is on abt to cover in case because she has had hematuria when she had utis in past. Problem List Medical Problems: (1) Abdominal pain Status: Acute (2) Pancytopenia Status: Acute (3) Right lower quadrant abdominal pain Status: Acute (4) RLQ abdominal pain Status: Acute Review of Systems Constitutional: No chills, No fever Respiratory: No cough, No shortness of breath Abdomen: No nausea, No vomiting Female : + hematuria, No urinary frequency Objective Vital Signs Date Time Temp Pulse Resp B/P Pulse Ox O2 Delivery O2 Flow Rate FiO2 04/24/16 08:00 Room Air 04/24/16 07:23 36.7 80 18 109/74 99 Room Air 04/24/16 00:01 Room Air 04/23/16 23:44 37.3 98 16 121/75 96 Room Air 04/23/16 16:00 Room Air 04/23/16 15:24 37.0 97 16 128/85 99 Room Air 04/23/16 12:35 37.2 92 18 128/83 04/23/16 12:35 37.1 92 16 128/83 04/23/16 12:05 37.2 94 18 114/74 04/23/16 11:50 37.0 89 18 114/74 04/23/16 11:32 37.2 90 18 116/75 Physical Exam General Appearance: WD/WN, no apparent distress ENT: hearing grossly normal Neurologic/Psychiatric: alert, normal mood/affect, oriented x 3 Comments: grossly bloody urine in the commode Laboratory Results Last 24 Hours Test 04/23/16 12:20 04/23/16 15:25 04/23/16 18:52 04/24/16 05:11 Hemoglobin 8.1 g/dL 9.3 g/dL 8.6 g/dL Hematocrit 26.7 % 29.1 % 27.7 % Stool Occult Blood NEGATIVE White Blood Count 2.83 K/uL Red Blood Count 3.75 M/uL Mean Corpuscular Volume 73.9 fL Mean Corpuscular Hemoglobin 22.9 pg Mean Corpuscular Hemoglobin Concent 31.0 g/dl Platelet Count 95 K/uL Neutrophils (%) (Auto) 64.3 % Lymphocytes (%) (Auto) 17.3 % Monocytes (%) (Auto) 4.6 % Eosinophils (%) (Auto) 13.4 % Basophils (%) (Auto) 0.4 % Neutrophils # (Auto) 1.82 K/uL Lymphocytes # (Auto) 0.49 K/uL Monocytes # (Auto) 0.13 K/uL Eosinophils # (Auto) 0.38 K/uL Basophils # (Auto) 0.01 K/uL RDW Standard Deviation 45.9 fL RDW Coefficient of Variation 16.9 % Immature Granulocyte % (Auto) 0.0 % Immature Granulocyte # (Auto) 0.00 K/uL Platelet Estimate DECREASED Large Platelets 1+ Tear Drop Cells 1+ Sodium Level 140 mmol/L Potassium Level 4.2 mmol/L Chloride Level 110 mmol/L Carbon Dioxide Level 22 mmol/L Anion Gap 8.0 mmol/L Blood Urea Nitrogen 10 mg/dl Creatinine 0.53 mg/dl Est Creatinine Clear Calc Drug Dose 117.6 ml/min Estimated GFR () > 150.0 Estimated GFR (Non- 132.9 BUN/Creatinine Ratio 18.2 Random Glucose 104 mg/dl Calcium Level 7.8 mg/dl Albumin 2.6 gm/dl Assessment and Plan gross hematuria no source identified. await urine culture result
[2016-04-24] MEDS: CEFTRIAXONE SOD INJ 1 GM in DEXTROSE 5% ADD-VANTAGE 50ML 50 ML IV SCH (12:03)
[2016-04-24 15:19] VITALS: BP 124/82; PULSE 85; TEMP 36.7; O2SAT 100
--- NOTE | 2016-04-24 17:13 | Progress Note ---
Medicine Progress Note Date & Time of Visit: Apr 24, 2016 at 16:47. Subjective patient seen resting in bed, comfortable states she feels improved compared to yesterday denies chest pain, dyspnea, dizziness, weakness still has blood tinged urine but less red no dysuria, has mild lower abdominal pain occasionally, no fever/chills no hematochezia denies other symptoms Objective Last 8 Hrs Date Time Temp Pulse Resp B/P Pulse Ox O2 Delivery O2 Flow Rate FiO2 04/24/16 16:00 Room Air 04/24/16 15:19 36.7 85 16 124/82 100 Room Air Physical Exam: General- oriented x 3, not in distress, speaks in sentences with no effort Eyes- anicteric Neck- no JVD Lungs- clear to auscultation bilaterally Heart- regular rhythm; no murmur, normal rate Abdomen- normal bowel sounds, soft, nontender Extremities- no pretibial edema, no calf tenderness Neuro- alert, oriented x 3; no gross deficits Skin- warm & dry Laboratory Results: Last 24 Hours Test 04/23/16 18:52 04/24/16 05:11 Hemoglobin 9.3 g/dL 8.6 g/dL Hematocrit 29.1 % 27.7 % White Blood Count 2.83 K/uL Red Blood Count 3.75 M/uL Mean Corpuscular Volume 73.9 fL Mean Corpuscular Hemoglobin 22.9 pg Mean Corpuscular Hemoglobin Concent 31.0 g/dl Platelet Count 95 K/uL Neutrophils (%) (Auto) 64.3 % Lymphocytes (%) (Auto) 17.3 % Monocytes (%) (Auto) 4.6 % Eosinophils (%) (Auto) 13.4 % Basophils (%) (Auto) 0.4 % Neutrophils # (Auto) 1.82 K/uL Lymphocytes # (Auto) 0.49 K/uL Monocytes # (Auto) 0.13 K/uL Eosinophils # (Auto) 0.38 K/uL Basophils # (Auto) 0.01 K/uL RDW Standard Deviation 45.9 fL RDW Coefficient of Variation 16.9 % Immature Granulocyte % (Auto) 0.0 % Immature Granulocyte # (Auto) 0.00 K/uL Platelet Estimate DECREASED Large Platelets 1+ Tear Drop Cells 1+ Sodium Level 140 mmol/L Potassium Level 4.2 mmol/L Chloride Level 110 mmol/L Carbon Dioxide Level 22 mmol/L Anion Gap 8.0 mmol/L Blood Urea Nitrogen 10 mg/dl Creatinine 0.53 mg/dl Est Creatinine Clear Calc Drug Dose 117.6 ml/min Estimated GFR () > 150.0 Estimated GFR (Non- 132.9 BUN/Creatinine Ratio 18.2 Random Glucose 104 mg/dl Calcium Level 7.8 mg/dl Albumin 2.6 gm/dl Assessment & Plan 26 year old female with history of Biliary Atresia s/p Liver Transplant, Iron deficiency Anemia, Asthma... SYMPTOMATIC ANEMIA HISTORY OF IRON DEFICIENCY ANEMIA, MULTIFACTORIAL s/p 2 unit pRBC, Hg increased to 8.6 R/O GI BLEED -GI consulted: repeat EGD and colonoscopy not recommended at this time HEMATURIA, POSSIBLE UTI - history of Strep UTI , penicillin sensitive in February Urine culture: gamma strep, not enterococcus on Ceftri IV day 2 Renal US: negative Dr. Rocha consulted, appreciate the recommendations - ff up final urine cultures METRORRHAGIA - no vaginal bleeding at present - follows with Caddy Packer - (+) Schistocytes on CBC yesterday check DIC, TTP panel will consult Hematology BILIARY ATRESIA S/P LIVER TRANSPLANT - on Cellcept, Tacrolimus ASTHMA on QVAR PANCYTOPENIA WBC and Plt stable likely from Cellcept, Tacrolimus DVT prophylaxis SCDs ambulation Disposition pending anticipate d/c home when medically stable Current Inpatient Medications: Current Inpatient Medications Medications (Trade) Dose Ordered Sig/Harley Route Start Time Stop Time Status Last Admin Dose Admin Acetaminophen (Tylenol Tab) 325 mg Q6H PRN PO 04/22/16 22:30 05/22/16 22:29 04/23/16 09:41 325 MG Beclomethasone Dipropionate (Qvar 80 Mcg Hfa Inhaler) 1 puffs BID INH 04/23/16 08:00 05/23/16 08:59 04/24/16 08:12 1 PUFFS Dicyclomine HCl (Bentyl Tab) 20 mg QPM PO 04/23/16 21:00 05/23/16 20:59 04/23/16 19:47 20 MG Loratadine (Claritin Tab) 10 mg BID PO 04/23/16 08:00 05/23/16 08:59 04/24/16 08:13 10 MG Mycophenolate Mofetil (Cellcept Cap) 1,000 mg QAM PO 04/23/16 08:00 05/23/16 08:59 04/24/16 08:12 1,000 MG Tacrolimus (Prograf Cap) 3 mg BID PO 04/23/16 08:00 05/23/16 08:59 04/24/16 08:12 3 MG Ursodiol (Actigall Cap) 300 mg BID PO 04/23/16 08:00 05/23/16 08:59 04/24/16 08:13 300 MG Ferrous Sulfate (Feosol Tab) 325 mg BID PO 04/23/16 08:00 05/23/16 08:59 Lorazepam (Ativan Inj) 0.5 mg Q4H PRN IV 04/22/16 22:30 05/22/16 22:29 Tramadol HCl (Ultram Tab) 25 mg Q6H PRN PO 04/22/16 22:30 05/22/16 22:29 04/23/16 23:59 25 MG Morphine Sulfate (MoRPHine SULFATE INJ) 2 mg Q3H PRN IV 04/22/16 22:30 05/06/16 22:29 Ondansetron HCl (Zofran Inj) 4 mg Q6H PRN IV 04/22/16 22:30 05/22/16 22:29 Ipratropium [place] (Atrovent 0.02% 0.5MG/2.5ML Neb) 0.5 mg Q4H PRN INH 04/22/16 23:15 05/22/16 23:14 Levalbuterol 1.25 mg 1.25 mg Q4H PRN INH 04/22/16 23:15 05/22/16 23:14 Lorazepam 0.5 mg/ Syringe 1 ml @ 1 mls/min Q4H PRN IV 04/22/16 23:15 05/22/16 23:14 Ceftriaxone Sodium/Dextrose (Rocephin Inj/ Dextrose Add-[place] 50ML) 50 ml @ 100 mls/hr Q24H IV 04/23/16 12:00 04/28/16 11:59 04/24/16 12:03 100 MLS/HR
[2016-04-24 17:51] LABS: HEMATOCRIT 29.8 % (37-47); MEAN CORPUSCULAR HEMOGLOBIN 23.5 pg (25-34); RED BLOOD COUNT 3.92 M/uL (4.2-5.4); WHITE BLOOD COUNT 3.33 K/uL (4.8-10.8)
[2016-04-24 18:13] LABS: ANISOCYTOSIS PRESENT; BASO % 0.3 %; BASO ABS # 0.01 K/uL (0-0.2); EOS % 9.9 %; LARGE PLATELETS 1+; LYMPH % 17.1 %; LYMPH ABS # 0.57 K/uL (1.2-3.4); MEAN CORPUSCULAR HGB CONC 30.9 g/dl (32-36); MONO % 4.5 %; NEUT % 68.2 %; PLATELET COUNT 123 K/uL (130-400); PLT ESTIMATE DECREASED; SCHISTOCYTES OCCASIONAL; TEAR DROP CELLS 1+
[2016-04-24 18:33] LABS: INR 1.1 (0.9-1.1); PROTHROMBIN TIME (PATIENT) 11.6 SECONDS (9.0-12.0)
--- NOTE | 2016-04-24 19:32 | Progress Note ---
Progress Note Date of Service Apr 24, 2016. Progress Note called patient's mother upon patient's request for update no answer left a voicemail requesting for call back Andres Weaver MD
[2016-04-24] MEDS: DICYCLOMINE HCL 20 MG TAB PO SCH (20:08)
[2016-04-24 23:41] VITALS: BP 119/82; PULSE 86; TEMP 36.9; O2SAT 99
[2016-04-24 23:45] VITALS: BP 113/74; PULSE 86; TEMP 36.9; O2SAT 98
[2016-04-25 05:40] LABS: MEAN CORPUSCULAR HGB CONC 30.3 g/dl (32-36)
[2016-04-25 05:45] LABS: HEMATOCRIT 29.4 % (37-47); RED BLOOD COUNT 3.87 M/uL (4.2-5.4); WHITE BLOOD COUNT 2.58 K/uL (4.8-10.8)
[2016-04-25 06:03] LABS: BLOOD UREA NITROGEN 10 mg/dl (7-18); BUN/CREATININE RATIO 20.2 (10-20); CALCIUM 7.9 mg/dl (8.5-10.1); CARBON DIOXIDE 23 mmol/L (21-32); CHLORIDE 109 mmol/L (98-107); CREATININE 0.51 mg/dl (0.60-1.20); GLUCOSE 98 mg/dl (70-99); POTASSIUM 4.3 mmol/L (3.5-5.1); SODIUM 142 mmol/L (136-145)
[2016-04-25 07:02] VITALS: BP 126/79; PULSE 77; TEMP 37; O2SAT 98
[2016-04-25 07:31] LABS: PLATELET COUNT 73 K/uL (130-400)
[2016-04-25 07:34] LABS: BASO % 0.8 %; BASO ABS # 0.02 K/uL (0-0.2); COMPLETE YES; EOS % 12.4 %; IG% 0.4 %; LARGE PLATELETS 2+; LYMPH % 16.7 %; LYMPH ABS # 0.43 K/uL (1.2-3.4); MONO % 4.7 %; OVALOCYTES 1+; TEAR DROP CELLS OCCASIONAL
[2016-04-25] MEDS: BECLOMETHASONE DIP HFA 80 MCG 8.7G INH INH SCH ×2 (08:34→20:35)
[2016-04-25] MEDS: URSODIOL 300 MG CAP PO SCH ×2 (08:34→20:37)
[2016-04-25] MEDS: MYCOPHENOLATE MOFETIL 250 MG CAP (CELLCEPT) PO SCH (08:35)
[2016-04-25] MEDS: TACROLIMUS 1 MG CAP PO SCH ×2 (08:35→20:38)
[2016-04-25] MEDS: LORATADINE 10 MG TAB PO SCH ×2 (08:35→20:35)
[2016-04-25] MEDS: FERROUS SULFATE 325 MG TAB PO SCH ×2 (08:35→20:36)
--- NOTE | 2016-04-25 09:56 | Medical Consult ---
Consultation Date of Consultation: Apr 25, 2016. Attending Physician: Bk Weaver MD Reason for Consultation: Possible UTI, immunosuppressed History of Present Illness Rule female with history of biliary atresia, status post liver transplant x2, on immunosuppressive therapy with chronic pancytopenia. She has history of recurrent urinary tract infections, as well as bouts of hematuria in the past. She was admitted to the hospital with 1-2 day history of progressively worsening shortness of breath and headache consistent with prior episodes of severe anemia. She also developed significant hematuria around this time. She was found to be significantly anemic, as well as having abnormal urinalysis with urine culture now growing streptococcal species. She currently is being treated with doxycycline and ceftriaxone. She has not had any significant fever , no flank pain, and no significant dysuria. Hematuria has been clearing since she has been in the hospital has been seen by Urology and no further intervention planned. Renal ultrasound, read by me, shows no obvious kidney pathology. Past Medical/Surgical History Medical Problems: (1) Abdominal pain Status: Acute (2) Pancytopenia Status: Acute (3) Right lower quadrant abdominal pain Status: Acute (4) RLQ abdominal pain Status: Acute Medical Problems: (1) Anemia (2) Congenital biliary atresia (3) Gastrointestinal hemorrhage (4) Symptomatic anemia (5) Transplantation of liver Surgical Problems: (1) H/O colonoscopy (2) H/O liver transplant (3) History of esophagogastroduodenoscopy (EGD) Family History Patient reports no known family medical history. Social History Smoking Status: Never Smoker Drug Use: none Marital Status: single Housing Status: lives with family Occupation Status: employed Allergies Coded Allergies: No Known Allergies (Unverified , 04/22/16) Current Inpatient Medications He Current Inpatient Medications Medications (Trade) Dose Ordered Sig/Harley Route Start Time Stop Time Status Last Admin Dose Admin Acetaminophen (Tylenol Tab) 325 mg Q6H PRN PO 04/22/16 22:30 05/22/16 22:29 04/23/16 09:41 325 MG Beclomethasone Dipropionate (Qvar 80 Mcg Hfa Inhaler) 1 puffs BID INH 04/23/16 08:00 05/23/16 08:59 04/25/16 08:34 1 PUFFS Dicyclomine HCl (Bentyl Tab) 20 mg QPM PO 04/23/16 21:00 05/23/16 20:59 04/24/16 20:08 20 MG Loratadine (Claritin Tab) 10 mg BID PO 04/23/16 08:00 05/23/16 08:59 04/25/16 08:35 10 MG Mycophenolate Mofetil (Cellcept Cap) 1,000 mg QAM PO 04/23/16 08:00 05/23/16 08:59 04/25/16 08:35 1,000 MG Tacrolimus (Prograf Cap) 3 mg BID PO 04/23/16 08:00 05/23/16 08:59 04/25/16 08:35 3 MG Ursodiol (Actigall Cap) 300 mg BID PO 04/23/16 08:00 05/23/16 08:59 04/25/16 08:34 300 MG Ferrous Sulfate (Feosol Tab) 325 mg BID PO 04/23/16 08:00 05/23/16 08:59 Lorazepam (Ativan Inj) 0.5 mg Q4H PRN IV 04/22/16 22:30 05/22/16 22:29 Tramadol HCl (Ultram Tab) 25 mg Q6H PRN PO 04/22/16 22:30 05/22/16 22:29 04/23/16 23:59 25 MG Morphine Sulfate (MoRPHine SULFATE INJ) 2 mg Q3H PRN IV 04/22/16 22:30 05/06/16 22:29 Ondansetron HCl (Zofran Inj) 4 mg Q6H PRN IV 04/22/16 22:30 05/22/16 22:29 Ipratropium [place] (Atrovent 0.02% 0.5MG/2.5ML Neb) 0.5 mg Q4H PRN INH 04/22/16 23:15 05/22/16 23:14 Levalbuterol 1.25 mg 1.25 mg Q4H PRN INH 04/22/16 23:15 05/22/16 23:14 Lorazepam 0.5 mg/ Syringe 1 ml @ 1 mls/min Q4H PRN IV 04/22/16 23:15 05/22/16 23:14 Ceftriaxone Sodium/Dextrose (Rocephin Inj/ Dextrose Add-Spicewood 50ML) 50 ml @ 100 mls/hr Q24H IV 04/23/16 12:00 04/28/16 11:59 04/24/16 12:03 100 MLS/HR Review of Systems Constitutional: No chills, No fever Eyes: No problem reported ENT: No problem reported Respiratory: + shortness of breath Cardiovascular: No problem reported Abdomen: + pain Musculoskeletal: No problem reported Genitourinary - Female: + hematuria Neurologic: No problem reported Psychiatric: No problem reported Endocrine: No problem reported Hematologic / Lymphatic: No problem reported Integumentary: No problem reported Allergic / Immunologic: No problem reported Physical Exam Date Time Temp Pulse Resp B/P Pulse Ox O2 Delivery O2 Flow Rate FiO2 04/25/16 07:02 37.0 77 16 126/79 98 Room Air 04/24/16 23:45 36.9 86 16 113/74 98 Room Air 04/24/16 23:45 Room Air 04/24/16 23:41 36.9 86 18 119/82 99 Room Air 04/24/16 16:00 Room Air 04/24/16 15:19 36.7 85 16 124/82 100 Room Air General Appearance: WD/WN, no apparent distress, + thin Head: normocephalic, atraumatic Eyes: normal inspection, sclerae normal ENT: normal ENT inspection, hearing grossly normal, pharynx normal Neck: supple, no adenopathy, thyroid normal, trachea midline Respiratory/Chest: chest non-tender, lungs clear, normal breath sounds, no respiratory distress Cardiovascular: regular rate, rhythm, no gallop, no murmur Abdomen/GI: normal bowel sounds, non tender, soft, no organomegaly Back: normal inspection, no CVA tenderness Extremities/Musculoskelatal: normal inspection, no calf tenderness, non-tender Neurologic/Psych: alert, normal mood/affect, oriented x 3 Skin: normal color, warm/dry, no rash Lymphatic: no adenopathy Laboratory Results RUN DATE: 04/25/16 [facility] PAGE 1 RUN TIME: 908 Specimen Inquiry PATIENT: YU NASH LOC: [place] U # : [id number] AGE/SX: 26/F ROOM: [facility] REG : 04/22/[address]: Bk Weaver MD : 1990 BED: 1 DIS : STATUS: ADM IN TLOC: SPEC #: [id number] TARSHA: 04/23/16 STATUS: COMP REQ #: [id number] RECD: 04/23/[address]: Bk Weaver MD SOURCE: UR, CC ENTR: 04/23/[address] [facility] [address]: Amanda Ga DO SPDESC: William Irizarry M.D. Rheel, Danielle N., PA-C Schneider, Donald S., MD Simmons, Jennifer ., MD ORDERED: CULTURE UREFREN COMMENTS: Has Specimen Been Obtained/Collected? Y Procedure Result Verified Site URINE CULTURE Final 04/25/16-0908 Organism 1 GAMMA STREP NOT ENTEROCOCCUS COLONY COUNT 30,000 CFU/ml SENS NO SENSITIVITY TO FOLLOW +MIX PLUS LOW COUNTS OTHER MIXED SUBHASH Last 24 Hours Test 04/24/16 17:37 04/25/16 05:10 White Blood Count 3.33 K/uL 2.58 K/uL Red Blood Count 3.92 M/uL 3.87 M/uL Hemoglobin 9.2 g/dL 8.9 g/dL Hematocrit 29.8 % 29.4 % Mean Corpuscular Volume 76.0 fL 76.0 fL Mean Corpuscular Hemoglobin 23.5 pg 23.0 pg Mean Corpuscular Hemoglobin Concent 30.9 g/dl 30.3 g/dl Platelet Count 123 K/uL 73 K/uL Neutrophils (%) (Auto) 68.2 % 65.0 % Lymphocytes (%) (Auto) 17.1 % 16.7 % Monocytes (%) (Auto) 4.5 % 4.7 % Eosinophils (%) (Auto) 9.9 % 12.4 % Basophils (%) (Auto) 0.3 % 0.8 % Neutrophils # (Auto) 2.27 K/uL 1.68 K/uL Lymphocytes # (Auto) 0.57 K/uL 0.43 K/uL Monocytes # (Auto) 0.15 K/uL 0.12 K/uL Eosinophils # (Auto) 0.33 K/uL 0.32 K/uL Basophils # (Auto) 0.01 K/uL 0.02 K/uL RDW Standard Deviation 48.5 fL 49.3 fL RDW Coefficient of Variation 17.3 % 17.6 % Immature Granulocyte % (Auto) 0.0 % 0.4 % Immature Granulocyte # (Auto) 0.00 K/uL 0.01 K/uL Platelet Estimate DECREASED Large Platelets 1+ 2+ Anisocytosis PRESENT Tear Drop Cells 1+ OCCASIONAL Schistocytes OCCASIONAL Prothrombin Time 11.6 SECONDS Prothromb Time International Ratio 1.1 Activated Partial Thromboplast Time 26.4 SECONDS Partial Thromboplastin Ratio 1.0 Fibrinogen 240 mg/dl D-Dimer 360 ug/L FEU Total Bilirubin 0.3 mg/dl Direct Bilirubin 0.1 mg/dl Lactate Dehydrogenase 176 U/L Ovalocytes 1+ Sodium Level 142 mmol/L Potassium Level 4.3 mmol/L Chloride Level 109 mmol/L Carbon Dioxide Level 23 mmol/L Anion Gap 10.0 mmol/L Blood Urea Nitrogen 10 mg/dl Creatinine 0.51 mg/dl Est Creatinine Clear Calc Drug Dose 122.2 ml/min Estimated GFR () > 150.0 Estimated GFR (Non- 134.6 BUN/Creatinine Ratio 20.2 Random Glucose 98 mg/dl Calcium Level 7.9 mg/dl Patient Name: YU NASH Unit Number: [id number] Dictated: 04/24/16951 Transcribed: 04/24/16951 MS Printed Date/Time: [~ rep prt dt]/[~ rep prt tm] [~ rep ct labl] - [~ rep ct ivnm] [facility] [place] [address] Dictated: 04/24/16951 Transcribed: 04/24/16951 MS Printed Date/Time: [~ rep prt dt]/[~ rep prt tm] [~ rep ct labl] - [~ rep ct ivnm] RENAL ULTRASOUND HISTORY: Nephrolithiasis r/o nephro/ureterolithiasis COMPARISON: None. FINDINGS: Right kidney: Partially 9 cm maximum dimension. No evidence for hydronephrosis. Normal corticomedullary differentiation and cortical thickness. Left kidney: No evidence for hydronephrosis. Approximate dimension 10.5 cm. Normal corticomedullary differentiation and cortical thickness. Bladder: Poorly seen. A trace amount pelvic ascites. Prior liver transplant. IMPRESSION: Somewhat limited exam. No evidence for obstructive change or hydronephrosis. Electronically signed by: Peng Soliz M.D. 04/24/2016 9:54 AM Dictated Date/Time: 04/24/2016 9:52 AM The status of this report is Signed. Draft = Not yet reviewed or approved by Radiologist. Signed = Reviewed and approved by Radiologist. <AttendingPhy>Bk Weaver MD</AttendingPhy> <FamilyPhy>Julia Ibrahim PA-C</FamilyPhy> <PrimaryPhy>Julia Ibrahim PA-C</PrimaryPhy> < UnitNumber>[id number]</UnitNumber> <VisitNumber>[id number]</VisitNumber> < PatientName>GEOVANI NASHIANA Jaida</PatientName> <DateOfBirth>1990</DateOfBirth> <Location>C.4[facility]</Location> <ServiceDate>04/22/16</ServiceDate> <MNE>ESINDI</MNE> <OrderingPhy>Bk Weaver MD</OrderingPhy> <OrderingPhyMNE>f rep ord dr saab </OrderingPhyMNE> <DictatingPhyMNE>f rep dict dr saab</DictatingPhyMNE> < CCListMNE>f rep ct mne</CCListMNE> <AdmittingPhyMNE>f pt admit dr saab</ AdmittingPhyMNE> <AttendingPhyMNE>f pt attend dr saab</AttendingPhyMNE> <ConsultingPhyMNE>f pt consult dr saab</ConsultingPhyMNE> <FamilyPhyMNE>f pt fam dr saab</FamilyPhyMNE> <OtherPhyMNE>f pt other dr saab</OtherPhyMNE> < PrimaryPhyMNE>f pt prim care dr saab</PrimaryPhyMNE> <ReferringPhyMNE>f pt referring dr saab</ReferringPhyMNE> Assessment & Plan Streptococcal UTI with severe hematuria in immunocompromised patient with chronic neutropenia. Ceftriaxone will provide adequate coverage for now, likely can transition to oral Rx in near future e.g. with cephalexin. Will follow.
[2016-04-25] MEDS: CEFTRIAXONE SOD INJ 1 GM in DEXTROSE 5% ADD-VANTAGE 50ML 50 ML IV SCH (11:56)
[2016-04-25 15:01] VITALS: BP 114/73; PULSE 97; TEMP 37.1; O2SAT 97
--- NOTE | 2016-04-25 15:14 | Medical Consult ---
Consultation Date of Consultation: Apr 25, 2016. Attending Physician: Bk Weaver MD Reason for Consultation: Pancytopenia, chronic with with acute on chronic anemia from blood loss History of Present Illness Ms. Jean is a 26 yo AAF is new to the consulting Hematology service. Earlier in 2015, she followed with Dr. Green, but as of March 2016, she reports that she switched to Dr. Nelson at [facility]. She has a long history of pancytopenia that has been attributed to anti rejection regimen she is on, CellCept and Prograf as she is status post liver transplantation for biliary atresia ; she has had 2 hepatic transplants, with last transplant when she was 17. Of note, the patient also has splenomegaly, which likely contributes to cell sequestration. she also has varices seen on CT scan from November 2015. It was noted that the patient is iron deficient about a year ago in April 2015. She had a workup at that time with EGD in 09/21 and colonoscopy in 11/21 without any findings suspicious for source of bleeding. She had a 6 week course of Venofer under the direction of Dr. Green. She reports her menstrual periods are irregular, but she has established with a structural layout worker since she has been placed on control starting last month an effort to stop menstruation altogether. Other sources of blood loss prior to this hospitalization have not been identified per the patient. An office visit note from 03/25 from her [facility] visit has not been filed. The patient reports she required a blood transfusion last month [facility] for symptomatic anemia, coordinated by [facility]. She states prior to this transfusion, it had been a few years since her last blood transfusion. The patient presented to [facility] on 2016 with symptoms of headache, tachycardia, dyspnea on exertion. The H and P reports that the patient may have been having her menses ; at the visit today with the patient, she states her last menstrual period was March 2016. she was transfused 2 units of PRBC. she was evaluated by Gastroenterology who has not recommend further GI workup for occult bleeding as recent prior studies have been unrevealing ; the physician stated the findings on the CT scan were consistent with being status post transplant. Subsequently, it was found that she had streptococcal urinary tract infection and is now on ceftriaxone. She apparently was having large volume hematuria every time she urinated prior to and during admission. She states this has improved since she has been treated. She does report a chronic history of urinary tract infections for which she is on preventative antibiotics (bactrim?). She states her last urinary tract infection was treated last month. She does not have issues with recurrent respiratory infections. Aside from when she has a symptomatic with anemia, she does not report major dyspnea. She reports a diminished appetite, chronic ; she states she had too much she does cramping or bloating. She reports her bowel movements are regular and has not had any bloody or black stools. She denies vomiting. Her transplant physician is Dr. Conrad [facility]. She last saw him in February 2016. Past Medical/Surgical History Medical Problems: (1) Abdominal pain Status: Acute (2) Pancytopenia Status: Acute (3) Right lower quadrant abdominal pain Status: Acute (4) RLQ abdominal pain Status: Acute Family History Patient reports no known family medical history. Social History Smoking Status: Never Smoker Drug Use: none Marital Status: single Housing Status: lives with family Occupation Status: employed Allergies Coded Allergies: No Known Allergies (Unverified , 04/22/16) Current Inpatient Medications Current Inpatient Medications Medications (Trade) Dose Ordered Sig/Harley Route Start Time Stop Time Status Last Admin Dose Admin Acetaminophen (Tylenol Tab) 325 mg Q6H PRN PO 04/22/16 22:30 05/22/16 22:29 04/23/16 09:41 325 MG Beclomethasone Dipropionate (Qvar 80 Mcg Hfa Inhaler) 1 puffs BID INH 04/23/16 08:00 05/23/16 08:59 04/25/16 08:34 1 PUFFS Dicyclomine HCl (Bentyl Tab) 20 mg QPM PO 04/23/16 21:00 05/23/16 20:59 04/24/16 20:08 20 MG Loratadine (Claritin Tab) 10 mg BID PO 04/23/16 08:00 05/23/16 08:59 04/25/16 08:35 10 MG Mycophenolate Mofetil (Cellcept Cap) 1,000 mg QAM PO 04/23/16 08:00 05/23/16 08:59 04/25/16 08:35 1,000 MG Tacrolimus (Prograf Cap) 3 mg BID PO 04/23/16 08:00 05/23/16 08:59 04/25/16 08:35 3 MG Ursodiol (Actigall Cap) 300 mg BID PO 04/23/16 08:00 05/23/16 08:59 04/25/16 08:34 300 MG Ferrous Sulfate (Feosol Tab) 325 mg BID PO 04/23/16 08:00 05/23/16 08:59 Lorazepam (Ativan Inj) 0.5 mg Q4H PRN IV 04/22/16 22:30 05/22/16 22:29 Tramadol HCl (Ultram Tab) 25 mg Q6H PRN PO 04/22/16 22:30 05/22/16 22:29 04/23/16 23:59 25 MG Morphine Sulfate (MoRPHine SULFATE INJ) 2 mg Q3H PRN IV 04/22/16 22:30 05/06/16 22:29 Ondansetron HCl (Zofran Inj) 4 mg Q6H PRN IV 04/22/16 22:30 05/22/16 22:29 Ipratropium [place] (Atrovent 0.02% 0.5MG/2.5ML Neb) 0.5 mg Q4H PRN INH 04/22/16 23:15 05/22/16 23:14 Levalbuterol 1.25 mg 1.25 mg Q4H PRN INH 04/22/16 23:15 05/22/16 23:14 Lorazepam 0.5 mg/ Syringe 1 ml @ 1 mls/min Q4H PRN IV 04/22/16 23:15 05/22/16 23:14 Ceftriaxone Sodium/Dextrose (Rocephin Inj/ Dextrose Add-[place] 50ML) 50 ml @ 100 mls/hr Q24H IV 04/23/16 12:00 04/28/16 11:59 04/25/16 11:56 100 MLS/HR Review of Systems Constitutional: + fatigue, No chills, No fever Respiratory: + dyspnea on exertion, No cough, No sputum Cardiovascular: No chest pain, No edema Abdomen: + problem reported (diminished appetite, chronic, cramping, bloating) , No GI bleeding, No constipation, No diarrhea, No nausea, No vomiting Musculoskeletal: No calf pain Genitourinary - Female: + problem reported (See HPI) Hematologic / Lymphatic: + abnormal bleeding/bruising, No clotting problems Physical Exam Date Time Temp Pulse Resp B/P Pulse Ox O2 Delivery O2 Flow Rate FiO2 04/25/16 08:30 Room Air 04/25/16 07:02 37.0 77 16 126/79 98 Room Air 04/24/16 23:45 36.9 86 16 113/74 98 Room Air 04/24/16 23:45 Room Air 04/24/16 23:41 36.9 86 18 119/82 99 Room Air 04/24/16 16:00 Room Air 04/24/16 15:19 36.7 85 16 124/82 100 Room Air General Appearance: WD/WN, no apparent distress ENT: hearing grossly normal Respiratory/Chest: lungs clear, normal breath sounds, no respiratory distress, no accessory muscle use Cardiovascular: regular rate, rhythm, no edema Abdomen/GI: normal bowel sounds, non tender, + pertinent finding (upper abdomen firm to palpation) Extremities/Musculoskelatal: no calf tenderness, no pedal edema Neurologic/Psych: no motor/sensory deficits, alert, oriented x 3 Skin: warm/dry, no rash Laboratory Results 04/22/16 19:54 Red Blood Count 3.15, Mean Corpuscular Volume 74.0, Mean Corpuscular Hemoglobin 21.9, Mean Corpuscular Hemoglobin Concent 29.6, Neutrophils (%) (Auto) 70.1, Lymphocytes (%) (Auto) 16.0, Monocytes (%) (Auto) 3.3, Eosinophils (%) (Auto) 10.2, Basophils (%) (Auto) 0.4, Neutrophils # (Auto) 1.71, Lymphocytes # (Auto) 0.39, Monocytes # (Auto) 0.08, Eosinophils # (Auto) 0.25, Basophils # (Auto) 0.01 04/23/16 05:10 Red Blood Count 3.39, Mean Corpuscular Volume 73.2, Mean Corpuscular Hemoglobin 22.7, Mean Corpuscular Hemoglobin Concent 31.0, Neutrophils (%) (Auto) 65.9, Lymphocytes (%) (Auto) 17.6, Monocytes (%) (Auto) 3.9, Eosinophils (%) (Auto) 11.8, Basophils (%) (Auto) 0.4, Neutrophils # (Auto) 1.68, Lymphocytes # (Auto) 0.45, Monocytes # (Auto) 0.10, Eosinophils # (Auto) 0.30, Basophils # (Auto) 0.01 04/23/16 12:20 04/23/16 18:52 04/24/16 05:11 Red Blood Count 3.75, Mean Corpuscular Volume 73.9, Mean Corpuscular Hemoglobin 22.9, Mean Corpuscular Hemoglobin Concent 31.0, Neutrophils (%) (Auto) 64.3, Lymphocytes (%) (Auto) 17.3, Monocytes (%) (Auto) 4.6, Eosinophils (%) (Auto) 13.4, Basophils (%) (Auto) 0.4, Neutrophils # (Auto) 1.82, Lymphocytes # (Auto) 0.49, Monocytes # (Auto) 0.13, Eosinophils # (Auto) 0.38, Basophils # (Auto) 0.01 04/24/16 17:37 Red Blood Count 3.92, Mean Corpuscular Volume 76.0, Mean Corpuscular Hemoglobin 23.5, Mean Corpuscular Hemoglobin Concent 30.9, Neutrophils (%) (Auto) 68.2, Lymphocytes (%) (Auto) 17.1, Monocytes (%) (Auto) 4.5, Eosinophils (%) (Auto) 9.9, Basophils (%) (Auto) 0.3, Neutrophils # (Auto) 2.27, Lymphocytes # (Auto) 0.57, Monocytes # (Auto) 0.15, Eosinophils # (Auto) 0.33, Basophils # (Auto) 0.01 04/25/16 05:10 Red Blood Count 3.87, Mean Corpuscular Volume 76.0, Mean Corpuscular Hemoglobin 23.0, Mean Corpuscular Hemoglobin Concent 30.3, Neutrophils (%) (Auto) 65.0, Lymphocytes (%) (Auto) 16.7, Monocytes (%) (Auto) 4.7, Eosinophils (%) (Auto) 12.4, Basophils (%) (Auto) 0.8, Neutrophils # (Auto) 1.68, Lymphocytes # (Auto) 0.43, Monocytes # (Auto) 0.12, Eosinophils # (Auto) 0.32, Basophils # (Auto) 0.02 04/22/16 19:54 04/23/16 05:10 04/24/16 05:11 04/25/16 05:10 Test 04/22/16 19:54 04/22/16 22:12 04/23/16 05:10 04/23/16 05:20 White Blood Count 2.44 K/uL (4.8-10.8) 2.55 K/uL (4.8-10.8) Red Blood Count 3.15 M/uL (4.2-5.4) 3.39 M/uL (4.2-5.4) Hemoglobin 6.9 g/dL (12.0-16.0) 7.7 g/dL (12.0-16.0) Hematocrit 23.3 % (37-47) 24.8 % (37-47) Mean Corpuscular Volume 74.0 fL (80-100) 73.2 fL (80-100) Mean Corpuscular Hemoglobin 21.9 pg (25-34) 22.7 pg (25-34) Mean Corpuscular Hemoglobin Concent 29.6 g/dl (32-36) 31.0 g/dl (32-36) Platelet Count 102 K/uL (130-400) 89 K/uL (130-400) Neutrophils (%) (Auto) 70.1 % 65.9 % Lymphocytes (%) (Auto) 16.0 % 17.6 % Monocytes (%) (Auto) 3.3 % 3.9 % Eosinophils (%) (Auto) 10.2 % 11.8 % Basophils (%) (Auto) 0.4 % 0.4 % Neutrophils # (Auto) 1.71 K/uL (1.4-6.5) 1.68 K/uL (1.4-6.5) Lymphocytes # (Auto) 0.39 K/uL (1.2-3.4) 0.45 K/uL (1.2-3.4) Monocytes # (Auto) 0.08 K/uL (0.11-0.59) 0.10 K/uL (0.11-0.59) Eosinophils # (Auto) 0.25 K/uL (0-0.5) 0.30 K/uL (0-0.5) Basophils # (Auto) 0.01 K/uL (0-0.2) 0.01 K/uL (0-0.2) RDW Standard Deviation 49.5 fL (36.4-46.3) 47.4 fL (36.4-46.3) RDW Coefficient of Variation 18.1 % (11.5-14.5) 17.5 % (11.5-14.5) Immature Granulocyte % (Auto) 0.0 % 0.4 % Immature Granulocyte # (Auto) 0.00 K/uL (0.00-0.02) 0.01 K/uL (0.00-0.02) Giant Platelets 1+ Hypochromasia PRESENT PRESENT Ovalocytes 1+ Schistocytes 1+ Anion Gap 10.0 mmol/L (3-11) 8.0 mmol/L (3-11) Est Creatinine Clear Calc Drug Dose 113.3 ml/min 117.6 ml/min Estimated GFR () > 150.0 > 150.0 Estimated GFR (Non- 131.3 132.9 BUN/Creatinine Ratio 14.2 (10-20) 12.9 (10-20) Calcium Level 8.3 mg/dl (8.5-10.1) 7.8 mg/dl (8.5-10.1) Magnesium Level 1.6 mg/dl (1.8-2.4) 2.0 mg/dl (1.8-2.4) Total Bilirubin 0.4 mg/dl (0.2-1) Aspartate Amino Transf (AST/SGOT) 39 U/L (15-37) Alanine Aminotransferase (ALT/SGPT) 50 U/L (12-78) Alkaline Phosphatase 307 U/L (45-117) Total Protein 6.5 gm/dl (6.4-8.2) Albumin 2.7 gm/dl (3.4-5.0) Globulin 3.8 gm/dl (2.5-4.0) Albumin/Globulin Ratio 0.7 (0.9-2) Thyroid Stimulating Hormone (TSH) 1.540 uIu/ml (0.300-4.500) Prothrombin Time 11.7 SECONDS (9.0-12.0) Prothromb Time International Ratio 1.1 (0.9-1.1) Activated Partial Thromboplast Time 25.0 SECONDS (21.0-31.0) Partial Thromboplastin Ratio 1.0 Platelet Estimate DECREASED Large Platelets 1+ Microcytosis PRESENT Tear Drop Cells 1+ Urine Color RED Urine Appearance TURBID (CLEAR) Urine pH 6.5 (4.5-7.5) Urine Specific [place] 1.025 (1.000-1.030) Urine Protein TRACE (NEG) Urine Glucose (UA) NEG (NEG) Urine Ketones NEG (NEG) Urine Occult Blood 3+ (NEG) Urine Nitrite NEG (NEG) Urine Bilirubin NEG (NEG) Urine Urobilinogen NEG (NEG) Urine Leukocyte Esterase NEG (NEG) Urine RBC >30 /hpf (0-4) Urine WBC 10-30 /hpf (0-5) Urine Epithelial Cells 5-10 /lpf (0-5) Urine Bacteria NEG (NEG) Urine Test NEG (NEG) Test 04/23/16 15:25 04/24/16 05:11 04/24/16 17:37 04/25/16 05:10 Stool Occult Blood NEGATIVE (NEGATIVE) White Blood Count 2.83 K/uL (4.8-10.8) 3.33 K/uL (4.8-10.8) 2.58 K/uL (4.8-10.8) Red Blood Count 3.75 M/uL (4.2-5.4) 3.92 M/uL (4.2-5.4) 3.87 M/uL (4.2-5.4) Hemoglobin 8.6 g/dL (12.0-16.0) 9.2 g/dL (12.0-16.0) 8.9 g/dL (12.0-16.0) Hematocrit 27.7 % (37-47) 29.8 % (37-47) 29.4 % (37-47) Mean Corpuscular Volume 73.9 fL (80-100) 76.0 fL (80-100) 76.0 fL (80-100) Mean Corpuscular Hemoglobin 22.9 pg (25-34) 23.5 pg (25-34) 23.0 pg (25-34) Mean Corpuscular Hemoglobin Concent 31.0 g/dl (32-36) 30.9 g/dl (32-36) 30.3 g/dl (32-36) Platelet Count 95 K/uL (130-400) 123 K/uL (130-400) 73 K/uL (130-400) Neutrophils (%) (Auto) 64.3 % 68.2 % 65.0 % Lymphocytes (%) (Auto) 17.3 % 17.1 % 16.7 % Monocytes (%) (Auto) 4.6 % 4.5 % 4.7 % Eosinophils (%) (Auto) 13.4 % 9.9 % 12.4 % Basophils (%) (Auto) 0.4 % 0.3 % 0.8 % Neutrophils # (Auto) 1.82 K/uL (1.4-6.5) 2.27 K/uL (1.4-6.5) 1.68 K/uL (1.4-6.5) Lymphocytes # (Auto) 0.49 K/uL (1.2-3.4) 0.57 K/uL (1.2-3.4) 0.43 K/uL (1.2-3.4) Monocytes # (Auto) 0.13 K/uL (0.11-0.59) 0.15 K/uL (0.11-0.59) 0.12 K/uL (0.11-0.59) Eosinophils # (Auto) 0.38 K/uL (0-0.5) 0.33 K/uL (0-0.5) 0.32 K/uL (0-0.5) Basophils # (Auto) 0.01 K/uL (0-0.2) 0.01 K/uL (0-0.2) 0.02 K/uL (0-0.2) RDW Standard Deviation 45.9 fL (36.4-46.3) 48.5 fL (36.4-46.3) 49.3 fL (36.4-46.3) RDW Coefficient of Variation 16.9 % (11.5-14.5) 17.3 % (11.5-14.5) 17.6 % (11.5-14.5) Immature Granulocyte % (Auto) 0.0 % 0.0 % 0.4 % Immature Granulocyte # (Auto) 0.00 K/uL (0.00-0.02) 0.00 K/uL (0.00-0.02) 0.01 K/uL (0.00-0.02) Platelet Estimate DECREASED DECREASED Large Platelets 1+ 1+ 2+ Tear Drop Cells 1+ 1+ OCCASIONAL Anion Gap 8.0 mmol/L (3-11) 10.0 mmol/L (3-11) Est Creatinine Clear Calc Drug Dose 117.6 ml/min 122.2 ml/min Estimated GFR () > 150.0 > 150.0 Estimated GFR (Non- 132.9 134.6 BUN/Creatinine Ratio 18.2 (10-20) 20.2 (10-20) Calcium Level 7.8 mg/dl (8.5-10.1) 7.9 mg/dl (8.5-10.1) Albumin 2.6 gm/dl (3.4-5.0) Anisocytosis PRESENT Schistocytes OCCASIONAL Prothrombin Time 11.6 SECONDS (9.0-12.0) Prothromb Time International Ratio 1.1 (0.9-1.1) Activated Partial Thromboplast Time 26.4 SECONDS (21.0-31.0) Partial Thromboplastin Ratio 1.0 Fibrinogen 240 mg/dl (184-400) D-Dimer 360 ug/L FEU (0-500) Total Bilirubin 0.3 mg/dl (0.2-1) Direct Bilirubin 0.1 mg/dl (0-0.2) Lactate Dehydrogenase 176 U/L (84-246) Ovalocytes 1+ Date/Time Source Procedure Growth Status 04/23/16 11:15 Urine , Clean Catch Urine Culture - Final Gamma Strep Not Enterococcus Complete Liver ultrasound from 04/22/2016: Fatty infiltration of the liver. Prior liver transplant. Right kidney negative for hydronephrosis. Main structures poorly seen due to overlying bowel content. Chest x-ray from 04/22/2016: Small parenchymal infiltrate medial right base. Lungs otherwise appear clear. Renal ultrasound from 04/24/16: No evidence for obstructive change or hydronephrosis. Assessment & Plan 1. Anemia of multiple mechanisms, acute on chronic- patient has had pancytopenia in the setting of anti-rejection regimen with Prograf and CellCept. About a year ago, she was found to be iron deficient- followed with Dr. Green, but last month switched to Dr. 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 She did received Venofer infusion x 6 under the care of Dr. Green. GI evaluation has not revealed occult source of bleeding. She is working with [employer] and as of March 2016 has started on OCP to stop regular menses. GI with this hospitalization has not recommended further GI evaluation for blood loss. She developed acute urinary tract bleeding just prior to and during this hospitalization due to Strep UTI, exacerbating acute on chronic blood loss anemia. Dr. Rocha has not advised cystoscopy at this time. She has received 2 units PRBC with appropriate response of anemia. It was noted on admission that she had schistocytes, again noted yesterday- concern for TTP or DIC. PT/INR, aPTT, fibrinogen, D dimer, bilirubin levels all normal. Haptoglobin pending as well peripheral smear. Will see if peripheral smear confirms schistocytes. Await haptoglobin, discuss with Dr. Dee about ordering LDH, MARIA ANTONIA. Continue to monitor CBC daily. Transfuse PRBC if Hgb < 7. 2. Pancytopenia- secondary to antirejection agents- CellCept, Prograf. She also has splenomegaly, which could account for sequestration of cells. Her pancytopenia appears at baseline aside from acute on chronic blood loss anemia. 3. Strep UTI- management per hospitalist and ID. Per patient has recurrent UTIs. May need to follow with urology as outpatient. 4. S/p hepatic transplant x 2, follows with [facility] transpant medicine. I performed a history and physical examination of the patient and discussed the management with Aster Beckman PA-C . I reviewed her note and agree with the documented findings and plan of care. In summary, she is a 26-year-old female, a case of liver transplant recipient 2, the last liver transplant surgery was done at the age of 17, she is on immunosuppressive agent in the form of CellCept and Prograf, also has evidence of iron deficiency anemia, received intravenous iron x 6 earlier, she also follows up with engine installer at [facility] (Dr. Nelson) who has suggested that she should receive blood pressure support and not intravenous iron because of concerns about iron deposition in the transplanted liver. She's admitted for symptomatic anemia, also noticed her pancytopenia which could be related to the immunosuppressive therapy and with portal hypertension with splenomegaly, received 2 units of PRBC, now hemoglobin level has improved, hemodynamically she has remained stable, she will be discharged home soon, she will continue to have follow-up with engine installer at [facility]. Will see her back in the clinic as needed. Dr. Kory Dee Hem/Onc (This note was completed using the dictation program Fluency Direct. As such, there may be misspellings, word substitutions, or other variations that should not change the essence of the clinical content of this encounter note. If there is need for further clarification, please direct questions to the provider listed above.)
[2016-04-25 16:00] VITALS: O2SAT 97
--- NOTE | 2016-04-25 16:37 | Progress Note ---
Medicine Progress Note Date & Time of Visit: Apr 25, 2016 at 16:32. Subjective seen ambulating in the room in good spirits denies chest pain, dyspnea, dizziness, weakness urine continues to clear up as per patient no abdominal pain, nausea, fever/chills Objective Last 8 Hrs Date Time Temp Pulse Resp B/P Pulse Ox O2 Delivery O2 Flow Rate FiO2 04/25/16 15:01 37.1 97 16 114/73 97 Room Air Physical Exam: General- oriented x 3, not in distress, speaks in sentences with no effort Neck- no JVD Lungs- clear to auscultation bilaterally, no rales wheezes Heart- regular rhythm; no murmur, normal rate Abdomen- normal bowel sounds, soft, nontender, no CVA tenderness Extremities- no pretibial edema, no calf tenderness Neuro- alert, oriented x 3; no gross deficits Skin- warm & dry Laboratory Results: Last 24 Hours Test 04/24/16 17:37 04/25/16 05:10 White Blood Count 3.33 K/uL 2.58 K/uL Red Blood Count 3.92 M/uL 3.87 M/uL Hemoglobin 9.2 g/dL 8.9 g/dL Hematocrit 29.8 % 29.4 % Mean Corpuscular Volume 76.0 fL 76.0 fL Mean Corpuscular Hemoglobin 23.5 pg 23.0 pg Mean Corpuscular Hemoglobin Concent 30.9 g/dl 30.3 g/dl Platelet Count 123 K/uL 73 K/uL Neutrophils (%) (Auto) 68.2 % 65.0 % Lymphocytes (%) (Auto) 17.1 % 16.7 % Monocytes (%) (Auto) 4.5 % 4.7 % Eosinophils (%) (Auto) 9.9 % 12.4 % Basophils (%) (Auto) 0.3 % 0.8 % Neutrophils # (Auto) 2.27 K/uL 1.68 K/uL Lymphocytes # (Auto) 0.57 K/uL 0.43 K/uL Monocytes # (Auto) 0.15 K/uL 0.12 K/uL Eosinophils # (Auto) 0.33 K/uL 0.32 K/uL Basophils # (Auto) 0.01 K/uL 0.02 K/uL RDW Standard Deviation 48.5 fL 49.3 fL RDW Coefficient of Variation 17.3 % 17.6 % Immature Granulocyte % (Auto) 0.0 % 0.4 % Immature Granulocyte # (Auto) 0.00 K/uL 0.01 K/uL Platelet Estimate DECREASED Large Platelets 1+ 2+ Anisocytosis PRESENT Tear Drop Cells 1+ OCCASIONAL Schistocytes OCCASIONAL Peripheral Blood Smear Path Consult Prothrombin Time 11.6 SECONDS Prothromb Time International Ratio 1.1 Activated Partial Thromboplast Time 26.4 SECONDS Partial Thromboplastin Ratio 1.0 Fibrinogen 240 mg/dl D-Dimer 360 ug/L FEU Total Bilirubin 0.3 mg/dl Direct Bilirubin 0.1 mg/dl Lactate Dehydrogenase 176 U/L Ovalocytes 1+ Sodium Level 142 mmol/L Potassium Level 4.3 mmol/L Chloride Level 109 mmol/L Carbon Dioxide Level 23 mmol/L Anion Gap 10.0 mmol/L Blood Urea Nitrogen 10 mg/dl Creatinine 0.51 mg/dl Est Creatinine Clear Calc Drug Dose 122.2 ml/min Estimated GFR () > 150.0 Estimated GFR (Non- 134.6 BUN/Creatinine Ratio 20.2 Random Glucose 98 mg/dl Calcium Level 7.9 mg/dl Assessment & Plan 26 year old female with history of Biliary Atresia s/p Liver Transplant, Iron deficiency Anemia, Asthma... SYMPTOMATIC ANEMIA HISTORY OF IRON DEFICIENCY ANEMIA, MULTIFACTORIAL s/p 2 unit pRBC, Hg increased to 8.6, remains stable at 8.9 HEMATURIA, POSSIBLE UTI - history of Strep UTI , penicillin sensitive in February Urine culture: gamma strep, not enterococcus on Ceftri IV day 3 Renal US: negative Dr. Rocha consulted, appreciate the recommendations ID consulted, continue Ceftriaxone IV, appreciate the recommendations - will discuss with ID re: antiobiotic regimen on discharge [place] - no vaginal bleeding at present - follows with Project Production Engineer GI BLEED unlikely -GI consulted: repeat EGD and colonoscopy not recommended at this time - (+) Schistocytes on CBC yesterday check DIC, TTP panel negative so far Hematology consulted BILIARY ATRESIA S/P LIVER TRANSPLANT - on Cellcept, Tacrolimus ASTHMA stable on Qvar PANCYTOPENIA likely from Cellcept, Tacrolimus Hematology consulted DVT prophylaxis SCDs encouraged ambulation Disposition pending anticipate d/c home when medically stable tomorrow Current Inpatient Medications: Current Inpatient Medications Medications (Trade) Dose Ordered Sig/Harley Route Start Time Stop Time Status Last Admin Dose Admin Acetaminophen (Tylenol Tab) 325 mg Q6H PRN PO 04/22/16 22:30 05/22/16 22:29 04/23/16 09:41 325 MG Beclomethasone Dipropionate (Qvar 80 Mcg Hfa Inhaler) 1 puffs BID INH 04/23/16 08:00 05/23/16 08:59 04/25/16 08:34 1 PUFFS Dicyclomine HCl (Bentyl Tab) 20 mg QPM PO 04/23/16 21:00 05/23/16 20:59 04/24/16 20:08 20 MG Loratadine (Claritin Tab) 10 mg BID PO 04/23/16 08:00 05/23/16 08:59 04/25/16 08:35 10 MG Mycophenolate Mofetil (Cellcept Cap) 1,000 mg QAM PO 04/23/16 08:00 05/23/16 08:59 04/25/16 08:35 1,000 MG Tacrolimus (Prograf Cap) 3 mg BID PO 04/23/16 08:00 05/23/16 08:59 04/25/16 08:35 3 MG Ursodiol (Actigall Cap) 300 mg BID PO 04/23/16 08:00 05/23/16 08:59 04/25/16 08:34 300 MG Ferrous Sulfate (Feosol Tab) 325 mg BID PO 04/23/16 08:00 05/23/16 08:59 Lorazepam (Ativan Inj) 0.5 mg Q4H PRN IV 04/22/16 22:30 05/22/16 22:29 Tramadol HCl (Ultram Tab) 25 mg Q6H PRN PO 04/22/16 22:30 05/22/16 22:29 04/23/16 23:59 25 MG Morphine Sulfate (MoRPHine SULFATE INJ) 2 mg Q3H PRN IV 04/22/16 22:30 05/06/16 22:29 Ondansetron HCl (Zofran Inj) 4 mg Q6H PRN IV 04/22/16 22:30 05/22/16 22:29 Ipratropium [place] (Atrovent 0.02% 0.5MG/2.5ML Neb) 0.5 mg Q4H PRN INH 04/22/16 23:15 05/22/16 23:14 Levalbuterol 1.25 mg 1.25 mg Q4H PRN INH 04/22/16 23:15 05/22/16 23:14 Lorazepam 0.5 mg/ Syringe 1 ml @ 1 mls/min Q4H PRN IV 04/22/16 23:15 05/22/16 23:14 Ceftriaxone Sodium/Dextrose (Rocephin Inj/ Dextrose Add-[place] 50ML) 50 ml @ 100 mls/hr Q24H IV 04/23/16 12:00 04/28/16 11:59 04/25/16 11:56 100 MLS/HR
--- NOTE | 2016-04-25 17:04 | Progress Note ---
Subjective Date of Service: Apr 25, 2016. Subjective Pt evaluation today including: conversation w/ patient, chart review, lab review Voiding: no voiding problems Saw pt this am and again this evening. She had the feeling the bleeding was lightening this am, and indeed thru the day has returned to yellow with no visible blood at all. She has been receiving ceftriaxone. She feels fine. Problem List Medical Problems: (1) Abdominal pain Status: Acute (2) Pancytopenia Status: Acute (3) Right lower quadrant abdominal pain Status: Acute (4) RLQ abdominal pain Status: Acute Review of Systems Constitutional: No chills, No fever Female : No dysuria, No hematuria, No urinary frequency Objective Vital Signs Date Time Temp Pulse Resp B/P Pulse Ox O2 Delivery O2 Flow Rate FiO2 04/25/16 15:01 37.1 97 16 114/73 97 Room Air 04/25/16 08:30 Room Air 04/25/16 07:02 37.0 77 16 126/79 98 Room Air 04/24/16 23:45 36.9 86 16 113/74 98 Room Air 04/24/16 23:45 Room Air 04/24/16 23:41 36.9 86 18 119/82 99 Room Air Physical Exam General Appearance: WD/WN, no apparent distress, + thin ENT: hearing grossly normal Neurologic/Psychiatric: alert, normal mood/affect, oriented x 3 Skin: normal color, warm/dry, no rash Laboratory Results Last 24 Hours Test 04/24/16 17:37 04/25/16 05:10 White Blood Count 3.33 K/uL 2.58 K/uL Red Blood Count 3.92 M/uL 3.87 M/uL Hemoglobin 9.2 g/dL 8.9 g/dL Hematocrit 29.8 % 29.4 % Mean Corpuscular Volume 76.0 fL 76.0 fL Mean Corpuscular Hemoglobin 23.5 pg 23.0 pg Mean Corpuscular Hemoglobin Concent 30.9 g/dl 30.3 g/dl Platelet Count 123 K/uL 73 K/uL Neutrophils (%) (Auto) 68.2 % 65.0 % Lymphocytes (%) (Auto) 17.1 % 16.7 % Monocytes (%) (Auto) 4.5 % 4.7 % Eosinophils (%) (Auto) 9.9 % 12.4 % Basophils (%) (Auto) 0.3 % 0.8 % Neutrophils # (Auto) 2.27 K/uL 1.68 K/uL Lymphocytes # (Auto) 0.57 K/uL 0.43 K/uL Monocytes # (Auto) 0.15 K/uL 0.12 K/uL Eosinophils # (Auto) 0.33 K/uL 0.32 K/uL Basophils # (Auto) 0.01 K/uL 0.02 K/uL RDW Standard Deviation 48.5 fL 49.3 fL RDW Coefficient of Variation 17.3 % 17.6 % Immature Granulocyte % (Auto) 0.0 % 0.4 % Immature Granulocyte # (Auto) 0.00 K/uL 0.01 K/uL Platelet Estimate DECREASED Large Platelets 1+ 2+ Anisocytosis PRESENT Tear Drop Cells 1+ OCCASIONAL Schistocytes OCCASIONAL Peripheral Blood Smear Path Consult Prothrombin Time 11.6 SECONDS Prothromb Time International Ratio 1.1 Activated Partial Thromboplast Time 26.4 SECONDS Partial Thromboplastin Ratio 1.0 Fibrinogen 240 mg/dl D-Dimer 360 ug/L FEU Total Bilirubin 0.3 mg/dl Direct Bilirubin 0.1 mg/dl Lactate Dehydrogenase 176 U/L Ovalocytes 1+ Sodium Level 142 mmol/L Potassium Level 4.3 mmol/L Chloride Level 109 mmol/L Carbon Dioxide Level 23 mmol/L Anion Gap 10.0 mmol/L Blood Urea Nitrogen 10 mg/dl Creatinine 0.51 mg/dl Est Creatinine Clear Calc Drug Dose 122.2 ml/min Estimated GFR () > 150.0 Estimated GFR (Non- 134.6 BUN/Creatinine Ratio 20.2 Random Glucose 98 mg/dl Calcium Level 7.9 mg/dl Assessment and Plan gross hematuria no source identified. urine culture result equivocal. She had no significant cystitis symptoms and It grew very low counts of a strep which could be skin taylor plus other polymicrobial counts, BUT she is immunosuppressed and the hematuria cleared with iv abt. It is also possible other non bacterial irritants caused a non bacterial inflammatory process which started the bleeding. Patient has called her transplant team for their advice if any of her chronic meds have any link with gross hematuria. She will let me know as outpatient. I explained I favor no cysto at this time as cysto carries 1% risk of causing infection and I think much less than 1% chance of finding anything useful.
[2016-04-25] MEDS: DICYCLOMINE HCL 20 MG TAB PO SCH (20:35)
[2016-04-25] MEDS ORDERED: PANTOprazole SOD 40 MG TAB PO ONE (20:44)
[2016-04-26 00:21] VITALS: BP 110/72; PULSE 86; TEMP 37; O2SAT 99
[2016-04-26 05:49] LABS: MEAN CORPUSCULAR HGB CONC 30.8 g/dl (32-36)
[2016-04-26 05:53] LABS: HEMATOCRIT 29.2 % (37-47); MEAN CELL VOLUME 75.3 fL (80-100); MEAN CORPUSCULAR HEMOGLOBIN 23.2 pg (25-34); RED BLOOD COUNT 3.88 M/uL (4.2-5.4); WHITE BLOOD COUNT 2.46 K/uL (4.8-10.8)
[2016-04-26 06:24] LABS: BLOOD UREA NITROGEN 13 mg/dl (7-18); BUN/CREATININE RATIO 26.7 (10-20); CALCIUM 7.9 mg/dl (8.5-10.1); CARBON DIOXIDE 24 mmol/L (21-32); CHLORIDE 110 mmol/L (98-107); GLUCOSE 92 mg/dl (70-99); POTASSIUM 4.4 mmol/L (3.5-5.1); SODIUM 142 mmol/L (136-145)
[2016-04-26 06:41] LABS: PLATELET COUNT 77 K/uL (130-400)
[2016-04-26 07:20] VITALS: BP 115/76; PULSE 83; TEMP 36.8; O2SAT 99
[2016-04-26] MEDS ORDERED: PANTOprazole SOD 40 MG TAB PO SCH (08:00)
[2016-04-26 08:02] LABS: BASO % 0.4 %; BASO ABS # 0.01 K/uL (0-0.2); COMPLETE YES; EOS % 12.6 %; IG% 0.4 %; LARGE PLATELETS 1+; LYMPH % 20.3 %; MONO % 4.1 %; NEUT % 62.2 %; OVALOCYTES 1+; PLT ESTIMATE DECREASED; POIKILOCYTOSIS PRESENT
[2016-04-26 08:41] LABS: IMMATURE RETIC FRACTION 12.5 % (3.0-15.9); RETHE 18.8 PG (28.2-36.6)
[2016-04-26] MEDS: BECLOMETHASONE DIP HFA 80 MCG 8.7G INH INH SCH (08:50)
[2016-04-26] MEDS: TACROLIMUS 1 MG CAP PO SCH (08:50)
[2016-04-26] MEDS: LORATADINE 10 MG TAB PO SCH (08:51)
[2016-04-26] MEDS: MYCOPHENOLATE MOFETIL 250 MG CAP (CELLCEPT) PO SCH (08:51)
[2016-04-26] MEDS: URSODIOL 300 MG CAP PO SCH (08:51)
[2016-04-26] MEDS: FERROUS SULFATE 325 MG TAB PO SCH (08:51)
--- NOTE | 2016-04-26 10:50 | Progress Note ---
Medicine Progress Note Date & Time of Visit: Apr 26, 2016 at 10:40. Subjective patient seen resting in bed, comfortable in good spirits states she feels better overall has occasional mild pink tinged urine, but much improved and getting less frequent no abdominal pain, back pain, nausea, fever/chills, dysuria denies chest pain, dyspnea, palpitations, dizziness, weakness ambulated with no problems states she is ready and would like to be discharged today Objective Last 8 Hrs Date Time Temp Pulse Resp B/P Pulse Ox O2 Delivery O2 Flow Rate FiO2 04/26/16 07:20 36.8 83 18 115/76 99 Room Air Physical Exam: General- oriented x 3, not in distress, speaks in sentences with no effort Lungs- clear breath sounds bilaterally Heart-normal rate, regular rhythm; no murmurs Abdomen- normal bowel sounds, soft, nontender, no CVA tenderness Extremities- no pretibial edema, no calf tenderness Neuro- alert, oriented x 3; no gross deficits Skin- warm & dry Laboratory Results: Last 24 Hours Test 04/26/16 04:45 04/26/16 08:00 White Blood Count 2.46 K/uL Red Blood Count 3.88 M/uL Hemoglobin 9.0 g/dL Hematocrit 29.2 % Mean Corpuscular Volume 75.3 fL Mean Corpuscular Hemoglobin 23.2 pg Mean Corpuscular Hemoglobin Concent 30.8 g/dl Platelet Count 77 K/uL Neutrophils (%) (Auto) 62.2 % Lymphocytes (%) (Auto) 20.3 % Monocytes (%) (Auto) 4.1 % Eosinophils (%) (Auto) 12.6 % Basophils (%) (Auto) 0.4 % Neutrophils # (Auto) 1.53 K/uL Lymphocytes # (Auto) 0.50 K/uL Monocytes # (Auto) 0.10 K/uL Eosinophils # (Auto) 0.31 K/uL Basophils # (Auto) 0.01 K/uL RDW Standard Deviation 49.3 fL RDW Coefficient of Variation 17.9 % Immature Granulocyte % (Auto) 0.4 % Immature Granulocyte # (Auto) 0.01 K/uL Platelet Estimate DECREASED Large Platelets 1+ Poikilocytosis PRESENT Ovalocytes 1+ Sodium Level 142 mmol/L Potassium Level 4.4 mmol/L Chloride Level 110 mmol/L Carbon Dioxide Level 24 mmol/L Anion Gap 8.0 mmol/L Blood Urea Nitrogen 13 mg/dl Creatinine 0.50 mg/dl Est Creatinine Clear Calc Drug Dose 124.6 ml/min Estimated GFR () > 150.0 Estimated GFR (Non- 135.5 BUN/Creatinine Ratio 26.7 Random Glucose 92 mg/dl Calcium Level 7.9 mg/dl Absolute Reticulocyte Count 0.04 10^6/uL Percent Reticulocyte Count 1.0 % Immature Reticulocyte Fraction 12.5 % Reticulocyte Hemoglobin Content 18.8 PG Lactate Dehydrogenase 164 U/L Assessment & Plan 26 year old female with history of Biliary Atresia s/p Liver Transplant, Iron deficiency Anemia, Asthma... SYMPTOMATIC ANEMIA HISTORY OF IRON DEFICIENCY ANEMIA, MULTIFACTORIAL s/p 2 unit pRBC, Hg increased to 8.6, remains stable at ~9 x 3 days HEMATURIA, in the Setting of Streptococcus UTI , Resolving Chronic Immunosuppression - history of Strep UTI , penicillin sensitive in 04/23/16: Urine culture: gamma strep, not enterococcus Renal US: negative IMPRESSION: Somewhat limited exam. No evidence for obstructive change or hydronephrosis. Urologist Dr. Rocha consulted, hematuria felt to be from bladder irritation , either bacterial vs. non bacterial however, hematuria resolved with IV Ceftriaxone follow up as outpatient with Dr. Rocha in 1-[address] Lloyd consulted, agree with continuing Ceftriaxone IV, then transition to Cephalexin discharge on Cephalexin 500mg BID x 3 more days to complete 7 days therapy METRORRHAGIA - no vaginal bleeding at present - follow up with Package Dyeing Machine Operator GI BLEED unlikely - no overt signs of GI bleed inpatient FOBT negative -GI Dr. Gilmore consulted: repeat EGD and colonoscopy not recommended at this time - (+) Schistocytes on CBC however DIC, TTP panel negative so far Cloth Dye Range Operator Dr. Dee consulted, agree with pRBC transfusion, no other further interventions at this time, ff up with [facility] Cloth Dye Range Operator BILIARY ATRESIA S/P LIVER TRANSPLANT - on Cellcept, Tacrolimus ASTHMA stable on Qvar PANCYTOPENIA likely from Cellcept, Tacrolimus Hematology consulted, Pancytopenia chronic no other further interventions at this time, ff up with [facility] Cloth Dye Range Operator DVT prophylaxis SCDs encouraged ambulation Disposition d/c home today ff up with Cloth Dye Range Operator this week PCP in [address] Rocha in 1-2 weeks Current Inpatient Medications: Current Inpatient Medications Medications (Trade) Dose Ordered Sig/Harley Route Start Time Stop Time Status Last Admin Dose Admin Acetaminophen (Tylenol Tab) 325 mg Q6H PRN PO 04/22/16 22:30 05/22/16 22:29 04/23/16 09:41 325 MG Beclomethasone Dipropionate (Qvar 80 Mcg Hfa Inhaler) 1 puffs BID INH 04/23/16 08:00 05/23/16 08:59 04/26/16 08:50 1 PUFFS Dicyclomine HCl (Bentyl Tab) 20 mg QPM PO 04/23/16 21:00 05/23/16 20:59 04/25/16 20:35 20 MG Loratadine (Claritin Tab) 10 mg BID PO 04/23/16 08:00 05/23/16 08:59 04/26/16 08:51 10 MG Mycophenolate Mofetil (Cellcept Cap) 1,000 mg QAM PO 04/23/16 08:00 05/23/16 08:59 04/26/16 08:51 1,000 MG Tacrolimus (Prograf Cap) 3 mg BID PO 04/23/16 08:00 05/23/16 08:59 04/26/16 08:50 3 MG Ursodiol (Actigall Cap) 300 mg BID PO 04/23/16 08:00 05/23/16 08:59 04/26/16 08:51 300 MG Ferrous Sulfate (Feosol Tab) 325 mg BID PO 04/23/16 08:00 05/23/16 08:59 Lorazepam (Ativan Inj) 0.5 mg Q4H PRN IV 04/22/16 22:30 05/22/16 22:29 Tramadol HCl (Ultram Tab) 25 mg Q6H PRN PO 04/22/16 22:30 05/22/16 22:29 04/23/16 23:59 25 MG Morphine Sulfate (MoRPHine SULFATE INJ) 2 mg Q3H PRN IV 04/22/16 22:30 05/06/16 22:29 Ondansetron HCl (Zofran Inj) 4 mg Q6H PRN IV 04/22/16 22:30 05/22/16 22:29 Ipratropium Meridian (Atrovent 0.02% 0.5MG/2.5ML Neb) 0.5 mg Q4H PRN INH 04/22/16 23:15 05/22/16 23:14 Levalbuterol 1.25 mg 1.25 mg Q4H PRN INH 04/22/16 23:15 05/22/16 23:14 Lorazepam 0.5 mg/ Syringe 1 ml @ 1 mls/min Q4H PRN IV 04/22/16 23:15 05/22/16 23:14 Ceftriaxone Sodium/Dextrose (Rocephin Inj/ Dextrose Add-[place] 50ML) 50 ml @ 100 mls/hr Q24H IV 04/23/16 12:00 04/28/16 11:59 04/25/16 11:56 100 MLS/HR Pantoprazole Sodium (Protonix Tab) 40 mg BID PO 04/26/16 08:00 05/26/16 07:59 04/26/16 08:50 40 MG
[2016-04-26] MEDS ORDERED: CEPH500T PO (10:52)
--- NOTE | 2016-04-26 11:02 | Discharge Instructions ---
Discharge Instructions Date of Service Apr 26, 2016. Admission Reason for Admission: Symptomatic Anemia Discharge Discharge Diagnosis / Problem: Symptomatic Anemia; Urinary Tract Infection Discharge Goals Goal(s): Diagnostic testing, Therapeutic intervention Activity Recommendations Activity Limitations: as noted below (no heavy exertion until re-evaluated by Primary Care Physician) . Instructions / Follow-Up Instructions / Follow-Up PLEASE REVIEW YOUR NEW MEDICATION LIST AND FOLLOW INSTRUCTIONS CAREFULLY. ENSURE ADEQUATE DAILY FLUID INTAKE. CALL YOUR PRIMARY CARE PHYSICIAN OR RETURN TO ER IMMEDIATELY IF WITH RECURRENCE OF SYMPTOMS, INCREASING BLOOD IN THE URINE, FEVER/CHILLS, ABDOMINAL PAIN, NAUSEA. FOLLOW UP WITH [facility] CORE ANALYST DR. SEWELL SCHEDULED THIS WEEK. PCP AUTUMN GOOD ON Monday05/02/16 AT 3:00 PM. [facility] UROLOGIST DR. ZACARIAS IN 1-2 WEEKS. tel. Current Hospital Diet Patient's current hospital diet: Regular Diet Discharge Diet Recommended Diet: Regular Diet Pending Studies Studies pending at discharge: yes List of pending studies: BLOOD WORK (CBC); REPEAT URINE CULTURE ON FOLLOW UP WITH PRIMARY CARE PROVIDER Medical Emergencies . Who to Call and When: Medical Emergencies: If at any time you feel your situation is an emergency, please call 911 immediately. . Non-Emergent Contact Non-Emergency issues call your: Primary Care Provider Call Non-Emergent contact if: you have a fever, your pain is not controlled, you have any medication questions . Past History Medical & Surgical History: (1) Congenital biliary atresia (2) Transplantation of liver (3) Symptomatic anemia (4) Pancytopenia (5) H/O liver transplant (6) History of esophagogastroduodenoscopy (EGD) (7) H/O colonoscopy . "Provider Documentation" section prepared by Bk Weaver. VTE Core Measure Inpt VTE Proph given/why not?: SCD's
--- NOTE | 2016-04-26 11:10 | Discharge Summary ---
Discharge Summary Date of Service Apr 26, 2016. Discharge Summary Admission Date: Apr 22, 2016 at 21:42 Discharge Date: Apr 26, 2016 Discharge Disposition: Home Principal Diagnosis: SYMPTOMATIC ANEMIA HISTORY OF IRON DEFICIENCY ANEMIA, MULTIFACTORIAL Secondary Diagnoses/Problems: PLEASE REFER TO HOSPITAL COURSE BELOW. Consultations: UROLOGIST DR. ZACARIAS, ID DR. LLOYD, RAIL SWITCHMAN DR. DEE, GI DR. GILMORE Pending Studies/Follow-Up: ON FOLLOW UP WITH PRIMARY CARE PROVIDER, REPEAT CBC, URINE CULTURES; PLEASE REFER TO HOSPITAL COURSE BELOW. Medication Reconciliation New Medications: Cephalexin (Cephalexin) 500 Mg Tab 1 TAB PO BID for 3 Days, #6 TAB 0 Refills Continued Medications: Albuterol Sulfate (Proair Respiclick) 108 Mcg/Act Aer 2 PUFFS INH QID PRN for Wheezing Beclomethasone Dip (Qvar) 80 Mcg/Act Aer 1 PUFF INH BID Control Pills ( Control Pills) Tab 1 TAB PO DAILY, TAB Dicyclomine Hcl (Bentyl) 20 Mg Tab 20 MG PO QPM, TAB Ferrous Sulfate (Kp Ferrous Sulfate) 325 Mg Tab 1 TAB PO BID Loratadine (Claritin) 10 Mg Cap 1 CAP PO BID Mycophenolate Mofetil (Cellcept) 500 Mg Tab 2 TAB PO QAM Tacrolimus (Prograf) 1 Mg Cap 3 CAP PO BID Ursodiol (Actigall) 300 Mg Cap 300 MG PO BID, CAP Admission Information HPI (per Admitting provider): Medical history significant for history of biliary atresia status post liver transplantation on CellCept, Prograf meds, chronic pancytopenia (baseline hemoglobin of 7-8), hx internal hemorrhoids. Hypothyroidism. Recent confinement September 2015 for acute on chronic iron deficiency anemia. Patient underwent blood transfusion. EGD normal. Patient was seen at the ER last November of 2015 for abdominal pain. CAT scan showed no acute process in the abdomen and pelvis, mild appendiceal dilatation, stable appearance of a transplanted liver with mild periportal edema pneumobilia. No significant change in splenomegaly, upper abdominal varices. The last few days, patient noted headache, tachycardia, shortness of breath on exertion, symptoms of anemia as per px. denies cp, cough sx Some vaginal bleeding with usual cramps. Patient not sure of she has her period due to irregular menses as per father. Usual achy abdominal pain more on the right. Hematochezia, some blood streaking noted in the stools yesterday. No fever/chills. Outpatient blood work noted hemoglobin of 7.2. [facility] head baker (Dr. Sewell) recommended transfusion. Physical Exam (per Admitting): VITAL SIGNS: Blood pressure was noted to be 119/80, pulse rate 109, respiratory rate 18, temperature 38, sats 100 on room air. GENERAL: Comfortable, no respiratory distress. SKIN: Pallor. HEENT: Pale palpebral conjunctivae. Dry mucosa. NECK: No JVD. supple CHEST: Decreased breath sounds. HEART: Tachycardic. ABDOMEN: healed abd sars. No overt tenderness, some distention. EXTREMITIES: No edema, no tenderness. NEUROLOGIC: No gross focality. Hospital Course 26 year old female with history of Biliary Atresia s/p Liver Transplant, Iron deficiency Anemia, Asthma... SYMPTOMATIC ANEMIA HISTORY OF IRON DEFICIENCY ANEMIA, MULTIFACTORIAL admitted with Hg 6.9 s/p 2 unit pRBC, Hg increased to 8.6, remained stable at ~9 x 3 days repeat CBC on ff up with PCP HEMATURIA, in the Setting of Streptococcus UTI , Resolving Chronic Immunosuppression - history of Strep UTI , penicillin sensitive in 04/23/16: Urine culture: gamma strep, not enterococcus Renal US: negative IMPRESSION: Somewhat limited exam. No evidence for obstructive change or hydronephrosis. Urologist Dr. Zacarias consulted, hematuria felt to be from bladder irritation , either bacterial vs. non bacterial however, hematuria resolved with IV Ceftriaxone follow up as outpatient with Dr. Zacarias in 1-[address] Lloyd consulted, agree with continuing Ceftriaxone IV, then transition to Cephalexin discharge on Cephalexin 500mg BID x 3 more days to complete 7 days therapy METRORRHAGIA - no vaginal bleeding at present - follow up with Lining Finisher GI BLEED unlikely - no overt signs of GI bleed inpatient FOBT negative -GI Dr. Gilmore consulted: repeat EGD and colonoscopy not recommended at this time - (+) Schistocytes on CBC however DIC, TTP panel negative so far Registered Nurse First Assistant Dr. Dee consulted, agree with pRBC transfusion, no other further interventions at this time, ff up with [facility] Registered Nurse First Assistant BILIARY ATRESIA S/P LIVER TRANSPLANT - on Cellcept, Tacrolimus ASTHMA stable on Qvar PANCYTOPENIA likely from Cellcept, Tacrolimus Hematology consulted, Pancytopenia chronic no other further interventions at this time, ff up with [facility] Registered Nurse First Assistant DVT prophylaxis SCDs encouraged ambulation Disposition d/c home ff up with Registered Nurse First Assistant this week PCP in [address] Zacarias in 1-2 weeks Total time spent on discharge = 50 minutes This includes examination of the patient, discharge planning, medication reconciliation, and communication with other providers. Discharge Instructions Discharge Instructions Date of Service Apr 26, 2016. Admission Reason for Admission: Symptomatic Anemia Discharge Discharge Diagnosis / Problem: Symptomatic Anemia; Urinary Tract Infection Discharge Goals Goal(s): Diagnostic testing, Therapeutic intervention Activity Recommendations Activity Limitations: as noted below (no heavy exertion until re-evaluated by Primary Care Physician) . Instructions / Follow-Up Instructions / Follow-Up PLEASE REVIEW YOUR NEW MEDICATION LIST AND FOLLOW INSTRUCTIONS CAREFULLY. ENSURE ADEQUATE DAILY FLUID INTAKE. CALL YOUR PRIMARY CARE PHYSICIAN OR RETURN TO ER IMMEDIATELY IF WITH RECURRENCE OF SYMPTOMS, INCREASING BLOOD IN THE URINE, FEVER/CHILLS, ABDOMINAL PAIN, NAUSEA. FOLLOW UP WITH [facility] RAIL SWITCHMAN DR. SEWELL SCHEDULED THIS WEEK. PCP AUTUMN GOOD ON Monday05/02/16 AT 3:00 PM. [facility] UROLOGIST DR. ZACARIAS IN 1-2 WEEKS. Current Hospital Diet Patient's current hospital diet: Regular Diet Discharge Diet Recommended Diet: Regular Diet Pending Studies Studies pending at discharge: yes List of pending studies: BLOOD WORK (CBC); REPEAT URINE CULTURE ON FOLLOW UP WITH PRIMARY CARE PROVIDER Medical Emergencies . Who to Call and When: Medical Emergencies: If at any time you feel your situation is an emergency, please call 911 immediately. . Non-Emergent Contact Non-Emergency issues call your: Primary Care Provider Call Non-Emergent contact if: you have a fever, your pain is not controlled, you have any medication questions . Past History Medical & Surgical History: (1) Congenital biliary atresia (2) Transplantation of liver (3) Symptomatic anemia (4) Pancytopenia (5) H/O liver transplant (6) History of esophagogastroduodenoscopy (EGD) (7) H/O colonoscopy . "Provider Documentation" section prepared by Bk Weaver. VTE Core Measure Inpt VTE Proph given/why not?: SCD's
[2016-04-26] MEDS: CEFTRIAXONE SOD INJ 1 GM in DEXTROSE 5% ADD-VANTAGE 50ML 50 ML IV SCH (11:12)
[2016-04-26 11:50] VITALS: BP 115/76; PULSE 83; TEMP 36.8; O2SAT 99
[2016-04-26 14:29] LABS: COMPLETE YES
[2016-06-11] MEDS ORDERED: PANT1TAB48 PO (13:51)
== END 2016-04-26 14:16 | disposition home or self-care (01) | DRG 812 ==
LOC: ENRESERVTM → ENRESERVDT → C.EDB 18:05 → C.4E 21:42
PROVIDERS: ADMIT Internal Medicine; ATTEND Internal Medicine
DX: D62 Acute posthemorrhagic anemia (principal); Z94.4 Liver transplant status; N39.0 Urinary tract infection, site not specified; D61.811 Other drug-induced pancytopenia; T45.1X5A Adverse effect of antineoplastic and immunosuppressive drugs, initial encounter; B95.5 Unspecified streptococcus as the cause of diseases classified elsewhere; N92.1 Excessive and frequent menstruation with irregular cycle; E03.9 Hypothyroidism, unspecified; J45.909 Unspecified asthma, uncomplicated; Z79.3 Long term (current) use of hormonal contraceptives; Z79.899 Other long term (current) drug therapy; Z87.19 Personal history of other diseases of the digestive system; Z87.440 Personal history of urinary (tract) infections

== ENCOUNTER → 2016-05-20 | Outpatient (CLI) | payer OTHER ==
[~2016-05-20] MED LIST changes: +ALBU18002 INH; -ALBU1AER9 INH; -BECL0.072 INH; +CEPH500C2 PO; +CEPH500T PO; -HYOS0.1255 PO; -MAGN400T6 PO; +PANT1TAB48 PO; +PENT100C6 PO; +QVRINH80 INH
--- NOTE | 2016-05-20 12:27 | DIAGNOSTIC IMAGING REPORT ---
CHEST 2 VIEWS ROUTINE HISTORY: Cough, asthma COMPARISON: Chest 04/22/2016. FINDINGS: The lungs are clear. Cardiac silhouette is normal in size. No pleural effusions. No pneumothorax. IMPRESSION: No acute process. Electronically signed by: Rian Vinson M.D. 05/20/2016 12:25 PM Dictated Date/Time: 05/20/2016 12:22 PM
== END | disposition home or self-care (01) ==
LOC: C.RADBBURG 00:01
PROVIDERS: ATTEND Internal Medicine Critical Care Medicine
DX: J20.9 Acute bronchitis, unspecified (principal); J45.909 Unspecified asthma, uncomplicated; R05 Cough

== ENCOUNTER 2016-06-09 13:10 | Inpatient (IN) | payer OTHER ==
[2016-06-09] VITALS (7 sets, daily range): BP systolic 103–199; BP diastolic 67–83; PULSE 90–98; TEMP 36.7–37.3; O2SAT 98–100; Ht 165.1 cm; Wt 46.8 kg
[~2016-06-09] VITALS: Ht 165.1 cm; Wt 46.8 kg
[~2016-06-09 13:10] MED LIST changes: -CEPH500C2 PO; -PANT1TAB48 PO; -PENT100C6 PO
[2016-06-09] MEDS ORDERED: CEPH500C2 PO (13:26)
[2016-06-09] MEDS ORDERED: PENT100C6 PO (13:26)
[2016-06-09] MEDS ORDERED: SODIUM CHLORIDE 0.9% 500ML 500 ML IV STA (13:39)
[2016-06-09] MEDS ORDERED: PANTOprazole INJ 80 MG in DEXTROSE 5% 100ML 100 ML IV SCH (13:45)
[2016-06-09 14:20] LABS: BASO % 0.8 %; BASO ABS # 0.02 K/uL (0-0.2); HEMATOCRIT 26.6 % (37-47); IG% 0.4 %; LYMPH % 15.4 %; LYMPH ABS # 0.38 K/uL (1.2-3.4); MEAN CELL VOLUME 76.9 fL (80-100); MEAN CORPUSCULAR HEMOGLOBIN 22.8 pg (25-34); MEAN CORPUSCULAR HGB CONC 29.7 g/dl (32-36); MONO % 4.5 %; NEUT % 65.9 %; RED BLOOD COUNT 3.46 M/uL (4.2-5.4); WHITE BLOOD COUNT 2.46 K/uL (4.8-10.8)
[2016-06-09 14:28] LABS: INR 1.1 (0.9-1.1); PROTHROMBIN TIME (PATIENT) 11.4 SECONDS (9.0-12.0)
[2016-06-09 14:52] LABS: BUN/CREATININE RATIO 24.1 (10-20); CALCIUM 8.5 mg/dl (8.5-10.1); CREATININE 0.73 mg/dl (0.60-1.20); POTASSIUM 4.1 mmol/L (3.5-5.1)
[2016-06-09 14:57] LABS: ALB/GLOB RATIO 0.8 (0.9-2); ANISOCYTOSIS PRESENT; FERRITIN 9.3 ng/ml (8.0-388.0); GIANT PLATELETS 1+; HYPOCHROMIA PRESENT; PLATELET COUNT 130 K/uL (130-400); PLT ESTIMATE NORMAL; TEAR DROP CELLS 1+
--- NOTE | 2016-06-09 15:30 | EMERGENCY ROOM VISIT NOTE ---
History First contact with patient: 13:28 Chief Complaint: WEAKNESS Stated Complaint: LOW ENERGY, BACK PAIN, LOW BLOOD COUNT History of Present Illness The patient is a 26 year old female who presents to the Emergency Room with complaints of fatigue worsening over the past several days. The patient has a history of anemia and had outpatient blood work today. She states that her hemoglobin 2 weeks ago was 8.8, and today it was 6.9. She was called by her primary care physician's office and referred to the emergency department for evaluation. The patient does not report fever or chills. No chest pain or shortness of breath. She has been eating and drinking as normal. Her last menstrual period was greater than one month ago, and she is irregular. She has a history of liver transplant and intermittent chronic anemia. She has followed with multiple specialists without distinct diagnosis. She rates her overall discomfort a 5/10. Review of Systems More than 10 systems were reviewed and otherwise negative with the exception of history of present illness. Past Medical/Surgical History Medical Problems: (1) Anemia (2) Congenital biliary atresia (3) Gastrointestinal hemorrhage (4) Symptomatic anemia (5) Transplantation of liver Surgical Problems: (1) H/O colonoscopy (2) H/O liver transplant (3) History of esophagogastroduodenoscopy (EGD) Family History Patient reports no known family medical history. Social History Smoking Status: Never Smoker Alcohol Use: none Drug Use: none Marital Status: single Housing Status: lives with family Occupation Status: employed Current/Historical Medications Scheduled Beclomethasone Dip (Qvar), 1 PUFF INH BID Cephalexin Monohydrate (Keflex), 500 MG PO TID Dicyclomine Hcl (Bentyl), 20 MG PO QPM Loratadine (Claritin), 1 CAP PO BID Mycophenolate Mofetil (Cellcept), 2 TAB PO QAM Pentosan Polysulfate Sodium (Elmiron), 100 MG PO TID Tacrolimus (Prograf), 3 CAP PO BID Ursodiol (Actigall), 300 MG PO BID Scheduled PRN Albuterol Sulfate (Proair Respiclick), 2 PUFFS INH QID PRN for Wheezing Allergies Coded Allergies: No Known Allergies (Unverified , 04/22/16) Physical Exam Vital Signs Date Time Temp Pulse Resp B/P Pulse Ox O2 Delivery O2 Flow Rate FiO2 06/09/16 14:58 96 20 130/88 97 Room Air 06/09/16 13:13 36.7 86 20 111/70 100 Room Air Physical Exam VITALS: Vitals are noted on the nurse's note and reviewed by myself. Vital signs stable. GENERAL: Well-developed, well-nourished, female, who is in no acute distress and resting comfortably. Patient is cooperative with the examination. HEAD: Normocephalic atraumatic. HEART: Regular rate and rhythm without murmurs gallops or rubs. LUNGS: Clear to auscultation bilaterally without wheezes, rales or rhonchi. No retractions or accessory muscle use. ABDOMEN: Positive normal bowel sounds x 4. Soft, nontender, without masses or organomegaly. No guarding or rebound tenderness. MUSCULOSKELETAL: No muscle atrophy, erythema, or edema noted. Full range of motion without joint tenderness in all extremities. NEURO: Patient was alert and oriented to person place and time. CN II through XII grossly intact. Deep tendon reflexes 2+ throughout. No focal neurological deficits Medical Decision & Procedures Laboratory Results 06/09/16 13:55 Red Blood Count 3.46, Mean Corpuscular Volume 76.9, Mean Corpuscular Hemoglobin 22.8, Mean Corpuscular Hemoglobin Concent 29.7, Neutrophils (%) (Auto) 65.9, Lymphocytes (%) (Auto) 15.4, Monocytes (%) (Auto) 4.5, Eosinophils (%) (Auto) 13.0, Basophils (%) (Auto) 0.8, Neutrophils # (Auto) 1.62, Lymphocytes # (Auto) 0.38, Monocytes # (Auto) 0.11, Eosinophils # (Auto) 0.32, Basophils # (Auto) 0.02 06/09/16 13:55 Test 06/09/16 13:55 White Blood Count 2.46 K/uL (4.8-10.8) Red Blood Count 3.46 M/uL (4.2-5.4) Hemoglobin 7.9 g/dL (12.0-16.0) Hematocrit 26.6 % (37-47) Mean Corpuscular Volume 76.9 fL (80-100) Mean Corpuscular Hemoglobin 22.8 pg (25-34) Mean Corpuscular Hemoglobin Concent 29.7 g/dl (32-36) Platelet Count 130 K/uL (130-400) Neutrophils (%) (Auto) 65.9 % Lymphocytes (%) (Auto) 15.4 % Monocytes (%) (Auto) 4.5 % Eosinophils (%) (Auto) 13.0 % Basophils (%) (Auto) 0.8 % Neutrophils # (Auto) 1.62 K/uL (1.4-6.5) Lymphocytes # (Auto) 0.38 K/uL (1.2-3.4) Monocytes # (Auto) 0.11 K/uL (0.11-0.59) Eosinophils # (Auto) 0.32 K/uL (0-0.5) Basophils # (Auto) 0.02 K/uL (0-0.2) RDW Standard Deviation 49.7 fL (36.4-46.3) RDW Coefficient of Variation 17.5 % (11.5-14.5) Immature Granulocyte % (Auto) 0.4 % Immature Granulocyte # (Auto) 0.01 K/uL (0.00-0.02) Platelet Estimate NORMAL Giant Platelets 1+ Hypochromasia PRESENT Anisocytosis PRESENT Tear Drop Cells 1+ Prothrombin Time 11.4 SECONDS (9.0-12.0) Prothromb Time International Ratio 1.1 (0.9-1.1) Activated Partial Thromboplast Time 25.7 SECONDS (21.0-31.0) Partial Thromboplastin Ratio 1.0 Anion Gap 8.0 mmol/L (3-11) Est Creatinine Clear Calc Drug Dose 85.4 ml/min Estimated GFR () 133.6 Estimated GFR (Non- 115.3 BUN/Creatinine Ratio 24.1 (10-20) Calcium Level 8.5 mg/dl (8.5-10.1) Ferritin 9.3 ng/ml (8.0-388.0) Total Bilirubin 0.6 mg/dl (0.2-1) Aspartate Amino Transf (AST/SGOT) 35 U/L (15-37) Alanine Aminotransferase (ALT/SGPT) 47 U/L (12-78) Alkaline Phosphatase 342 U/L (45-117) Total Protein 7.0 gm/dl (6.4-8.2) Albumin 3.0 gm/dl (3.4-5.0) Globulin 4.0 gm/dl (2.5-4.0) Albumin/Globulin Ratio 0.8 (0.9-2) Medications Administered Medications (Trade) Dose Ordered Sig/Harley Route Start Time Stop Time Status Last Admin Dose Admin Pantoprazole Sodium 80 mg/ Dextrose 120 ml @ 400 mls/hr NOW IV 06/09/16 13:45 07/09/16 13:44 06/09/16 15:01 400 MLS/HR Sodium Chloride (Nss 500ml) 500 ml @ 999 mls/hr Q31M STAT IV 06/09/16 13:39 06/09/16 14:09 DC 06/09/16 15:00 999 MLS/HR ED Course Physical exam and history were performed. Nursing notes and EMR were reviewed. Patient appears to have reports of weakness in the context of outpatient anemia. IV access was established and labs were obtained. The patient was hydrated with 500 MLS normal saline. The patient's blood work is as above and was reviewed. She is anemic at this facility at 7.9. She was typed and crossed for 2 units of packed cells. Her other blood work does show low ferritin levels concerning for possible iron deficiency anemia. She does not have outward evidence of bleed, but was given IV Protonix as a precaution. The patient has required hospitalization previously for her anemia. The case was discussed with my attending physician, Dr. Valverde, and then with the on-call [facility] Hospitalist. Please see their dictation for further patient course, plan, and disposition. The chart was completed utilizing [employer] Speech Voice Recognition Software. Grammatical errors, random word insertions, pronoun errors, and incomplete sentences are an occasional consequence of this system due to software limitations, ambient noise, and hardware issues. Any formal questions or concerns about the content, text, or information contained within the body of this dictation should be directly addressed to the provider for clarification. . Medical Decision Differential diagnosis: Etiologies such as metabolic, infection, hypo/hyperglycemia, electrolyte abnormalities, cardiac sources, intracerebral event, toxicologic, neurologic, as well as others were entertained. Impression Primary Impression: Symptomatic anemia Departure Information Referrals Arden White M.D. (PCP) Patient Instructions My [facility]
--- NOTE | 2016-06-09 15:36 | EMERGENCY ROOM VISIT NOTE ---
ED Visit Note First contact with patient: 13:28 Patient was seen by our PA/PHYSICIST [employer]. I was involved in the patient's care and did evaluate the patient myself. I was involved in the care throughout the ER stay. The patient presents with weakness. She is anemic. She has had this issue before and will likely require a transfusion. The on-call hospitalist has been consulted. Blood has been ordered.
[2016-06-09] MEDS ORDERED: ALBUTEROL HFA 8 GM INHALER INH PRN (16:00)
[2016-06-09 16:04] LABS: COMPLETE YES
--- NOTE | 2016-06-09 17:26 | History and Physical ---
History & Physical Date & Time of Service: June 09, 2016 at 17:04 Chief Complaint: Low Energy, Back Pain, Low Blood Count Primary Care Physician: Arden White M.D. 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 She states she feels weak and tired, which she usually does when her Hgb is low. She follows with Hem/onc in [place]. She had been receiving iron infusions, but due to side effects, this was stopped. She was started on Aranesp, but this was not covered by insurance. As per Hem/onc in [place], she should have monthly CBCs and transfuse if Hgb < 7 or if she becomes symptomatic. In two weeks she has an appointment to see Hematology in [place]. Currently, no chest pain/shortness of breath; she is c/o chronic back pain; no abdominal pain, but decreased PO intake, weakness, lethargy. Past Medical/Surgical History Medical Problems: (1) Congenital biliary atresia Status: Chronic (2) Gastrointestinal hemorrhage Status: Resolved (3) History of transplantation, liver Status: Chronic Surgical Problems: (1) H/O colonoscopy Status: Chronic (2) H/O liver transplant Status: Chronic (3) History of esophagogastroduodenoscopy (EGD) Permanent Comment: 06/25/2015 eosinophilic esophagitis/ ESOPHAGOGASTRODUODENOSCOPY (EGD), FLEXIBLE, TRANSORAL, DIAGNOSTIC performed by Rosalina Hernandez DO at [facility] Status: Chronic Family History Patient reports no known family medical history. Social History Smoking Status: Never Smoker Drug Use: none Marital Status: single Housing status: lives with family Occupational Status: employed Allergies Coded Allergies: No Known Allergies (Unverified , 04/22/16) Home Medications Scheduled Beclomethasone Dip (Qvar), 1 PUFF INH BID Cephalexin Monohydrate (Keflex), 500 MG PO TID Dicyclomine Hcl (Bentyl), 20 MG PO QPM Loratadine (Claritin), 1 CAP PO BID Mycophenolate Mofetil (Cellcept), 2 TAB PO QAM Pentosan Polysulfate Sodium (Elmiron), 100 MG PO TID Tacrolimus (Prograf), 3 CAP PO BID Ursodiol (Actigall), 300 MG PO BID Scheduled PRN Albuterol Sulfate (Proair Respiclick), 2 PUFFS INH QID PRN for Wheezing Review of Systems Constitutional: + fatigue, + weakness, No chills, No fever Eyes: No worsening of vision ENT: No hearing loss Respiratory: No cough, No dyspnea at rest, No dyspnea on exertion, No hemoptysis, No shortness of breath, No sputum Cardiovascular: No chest pain, No edema, No palpitations Abdomen: + problem reported (decreased PO intake), No GI bleeding, No diarrhea , No nausea, No pain, No vomiting Musculoskeletal: + joint pain (low back pain, chronic) Genitourinary - Female: + menorrhagia (has had problems with menometrorrhagia, chronic), No dysuria, No hematuria, No urinary frequency, No urinary incontinence, No urinary retention, No urinary urgency Neurologic: No balance problems, No numbness/tingling Psychiatric: No anxiety, No depression symptoms, No insomnia Endocrine: + fatigue, No excessive urination Hematologic / Lymphatic: No abnormal bleeding/bruising, No night sweats Integumentary: No rash Allergic / Immunologic: No environmental allergies, No seasonal allergies Physical Exam Vital Signs Date Time Temp Pulse Resp B/P Pulse Ox O2 Delivery O2 Flow Rate FiO2 06/09/16 14:58 96 20 130/88 97 Room Air 06/09/16 13:13 36.7 86 20 111/70 100 Room Air General Appearance: no apparent distress, + pertinent finding (+tired, weak) Head: normocephalic, atraumatic Eyes: normal inspection ENT: hearing grossly normal Neck: supple Respiratory/Chest: chest non-tender, lungs clear, normal breath sounds, no respiratory distress, no accessory muscle use Cardiovascular: regular rate, rhythm, no edema, no gallop, no murmur Abdomen/GI: normal bowel sounds, non tender, + pertinent finding (+scar tissue on abdomen) Extremities/Musculoskelatal: normal inspection, no calf tenderness, normal capillary refill, no pedal edema 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, no motor/sensory deficits, alert, normal mood/affect, oriented x 3 Skin: normal color Lymphatic: no adenopathy Diagnostics Laboratory Results Results Past 24 Hours Test 06/09/16 13:55 Range/Units White Blood Count 2.46 4.8-10.8 K/uL Red Blood Count 3.46 4.2-5.4 M/uL Hemoglobin 7.9 12.0-16.0 g/dL Hematocrit 26.6 37-47 % Mean Corpuscular Volume 76.9 80-100 fL Mean Corpuscular Hemoglobin 22.8 25-34 pg Mean Corpuscular Hemoglobin Concent 29.7 32-36 g/dl Platelet Count 130 130-400 K/uL Neutrophils (%) (Auto) 65.9 % Lymphocytes (%) (Auto) 15.4 % Monocytes (%) (Auto) 4.5 % Eosinophils (%) (Auto) 13.0 % Basophils (%) (Auto) 0.8 % Neutrophils # (Auto) 1.62 1.4-6.5 K/uL Lymphocytes # (Auto) 0.38 1.2-3.4 K/uL Monocytes # (Auto) 0.11 0.11-0.59 K/uL Eosinophils # (Auto) 0.32 0-0.5 K/uL Basophils # (Auto) 0.02 0-0.2 K/uL RDW Standard Deviation 49.7 36.4-46.3 fL RDW Coefficient of Variation 17.5 11.5-14.5 % Immature Granulocyte % (Auto) 0.4 % Immature Granulocyte # (Auto) 0.01 0.00-0.02 K/uL Platelet Estimate NORMAL Giant Platelets 1+ Hypochromasia PRESENT Anisocytosis PRESENT Tear Drop Cells 1+ Peripheral Blood Smear Path Consult Prothrombin Time 11.4 9.0-12.0 SECONDS Prothromb Time International Ratio 1.1 0.9-1.1 Activated Partial Thromboplast Time 25.7 21.0-31.0 SECONDS Partial Thromboplastin Ratio 1.0 Sodium Level 142 136-145 mmol/L Potassium Level 4.1 3.5-5.1 mmol/L Chloride Level 110 98-107 mmol/L Carbon Dioxide Level 24 21-32 mmol/L Anion Gap 8.0 3-11 mmol/L Blood Urea Nitrogen 18 7-18 mg/dl Creatinine 0.73 0.60-1.20 mg/dl Est Creatinine Clear Calc Drug Dose 85.4 ml/min Estimated GFR () 133.6 Estimated GFR (Non- 115.3 BUN/Creatinine Ratio 24.1 10-20 Random Glucose 121 70-99 mg/dl Calcium Level 8.5 8.5-10.1 mg/dl Ferritin 9.3 8.0-388.0 ng/ml Total Bilirubin 0.6 0.2-1 mg/dl Aspartate Amino Transf (AST/SGOT) 35 15-37 U/L Alanine Aminotransferase (ALT/SGPT) 47 12-78 U/L Alkaline Phosphatase 342 45-117 U/L Total Protein 7.0 6.4-8.2 gm/dl Albumin 3.0 3.4-5.0 gm/dl Globulin 4.0 2.5-4.0 gm/dl Albumin/Globulin Ratio 0.8 0.9-2 Impression Assessment and Plan This is a 26 year old female with an extensive PMH which includes 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, on mcc immunosuppressive agents , chronic anemia; iron deficiency with multiple endoscopies with no acute bleed findings; also has chronic leukopenia and thrombocytopenia presents with anemia Symptomatic Acute on Chronic Iron Deficiency Anemia patient was sent over due to Hgb of 6.9 states she's had weakness/lethargy due to her low Hgb on presentation here, Hgb is up to 7.9 as per Hem/onc in [place], transfuse PRN (though goal is >7) will transfuse one unit and recheck H/H she's had multiple colonoscopies/endoscopies with no definitive answers has a history of hematuria, as well as menometrorrhagia and 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 of Hematuria follows with urology due to UTIs, she develops worsening hematuria currently she is on Keflex prophylactically UA and culture pending Biliary Atresia s/p Liver Transplantation initial one at age of 10 months second transplant in 2006 follows with hepatology in [place] continue her immunosuppressive therapy Pancytopenia as per Hem/onc, may consider Neupogen if recurrent infections for now, we'll monitor leukopenia and thrombocytopenia DVT ppx encourage ambulation FULL CODE VTE Prophylaxis VTE Risk Assessment Done? Y/N: Yes Risk Level: Low Given or contraindicated: Treatment not indicated
[2016-06-09] MEDS ORDERED: IV FLUIDS COMPLETED PRN (18:30)
[2016-06-09] MEDS: NSS + 20MEQ KCL 1000ML 1,000 ML IV SCH (19:26)
[2016-06-09] MEDS: ACETAMINOPHEN 325 MG TAB PO PRN (19:47)
[2016-06-09] MEDS: DICYCLOMINE HCL 20 MG TAB PO SCH (20:15)
[2016-06-09] MEDS: PENTOSAN POLYSULFATE SODIUM 100 MG CAP PO SCH (20:15)
[2016-06-09] MEDS: URSODIOL 300 MG CAP PO SCH (20:15)
[2016-06-09] MEDS: TACROLIMUS 1 MG CAP PO SCH (20:16)
[2016-06-09] MEDS: CEPHALEXIN MONOHYDRATE 500 MG CAP PO SCH (20:16)
[2016-06-09] MEDS: BECLOMETHASONE DIP HFA 80 MCG 8.7G INH INH SCH (20:16)
[2016-06-09] MEDS: PANTOprazole INJ 40 MG in SYRINGE 0 ML IV SCH (20:17)
[2016-06-09] MEDS ORDERED: LORATADINE 10 MG TAB PO SCH (21:00)
[2016-06-09 21:17] LABS: MANUAL MICROSCOPIC REQUIRED? YES; PREG INTERNAL NEGATIVE QC NEG CLEAR BACKGROUND; PREG INTERNAL POSITIVE QC POS CONTROL LINE; REVIEW REQ? NO; SULFASALICYLIC ACID NEG (NEG); URINE APPEARANCE CLEAR (CLEAR); URINE COLOR ORANGE
[2016-06-09 21:18] LABS: URINE SPECIFIC GRAVITY 1.018 (1.000-1.030)
[2016-06-09 21:22] LABS: URINE BACTERIA 1+ (NEG); URINE RBC 0-4 /hpf (0-4)
[2016-06-09 21:24] LABS: ZZUR CULT IF INDIC CLEAN CATCH YES
[2016-06-09 21:56] LABS: HEMATOCRIT 25.7 % (37-47)
[2016-06-10] VITALS (10 sets, daily range): BP systolic 99–120; BP diastolic 64–84; PULSE 76–96; TEMP 36.4–37.3; O2SAT 97–100
[2016-06-10 07:04] LABS: MEAN CORPUSCULAR HGB CONC 29.7 g/dl (32-36)
[2016-06-10 07:30] LABS: HEMATOCRIT 25.6 % (37-47); MEAN CORPUSCULAR HEMOGLOBIN 23.2 pg (25-34); RED BLOOD COUNT 3.28 M/uL (4.2-5.4); WHITE BLOOD COUNT 1.86 K/uL (4.8-10.8)
[2016-06-10 07:42] LABS: BLOOD UREA NITROGEN 15 mg/dl (7-18); BUN/CREATININE RATIO 26.7 (10-20); CALCIUM 8.4 mg/dl (8.5-10.1); CARBON DIOXIDE 24 mmol/L (21-32); CHLORIDE 113 mmol/L (98-107); CREATININE 0.56 mg/dl (0.60-1.20); GLUCOSE 93 mg/dl (70-99); MAGNESIUM 1.7 mg/dl (1.8-2.4); POTASSIUM 4.4 mmol/L (3.5-5.1); SODIUM 143 mmol/L (136-145)
[2016-06-10 07:56] LABS: PLATELET COUNT 93 K/uL (130-400); PLT ESTIMATE DECREASED
[2016-06-10] MEDS: NSS + 20MEQ KCL 1000ML 1,000 ML IV SCH (08:04)
[2016-06-10] MEDS ORDERED: MAGNESIUM SULFATE 1GM / D5W 1 GM in PREMIXED IN D5W 100 ML IV SCH (08:30)
[2016-06-10] MEDS: PANTOprazole INJ 40 MG in SYRINGE 0 ML IV SCH ×2 (08:36→21:38)
[2016-06-10] MEDS: BECLOMETHASONE DIP HFA 80 MCG 8.7G INH INH SCH ×2 (08:36→22:31)
[2016-06-10] MEDS: PENTOSAN POLYSULFATE SODIUM 100 MG CAP PO SCH ×3 (08:36→21:39)
[2016-06-10] MEDS: URSODIOL 300 MG CAP PO SCH ×2 (08:36→21:38)
[2016-06-10] MEDS: TACROLIMUS 1 MG CAP PO SCH ×2 (08:37→21:41)
[2016-06-10] MEDS: CEPHALEXIN MONOHYDRATE 500 MG CAP PO SCH ×3 (08:37→21:40)
[2016-06-10] MEDS: MYCOPHENOLATE MOFETIL 250 MG CAP (CELLCEPT) PO SCH (08:37)
[2016-06-10] MEDS: LORATADINE 10 MG TAB PO SCH (08:38)
--- NOTE | 2016-06-10 15:42 | CONSULTATION REPORT ---
DATE OF CONSULTATION: 06/10/2016 REFERRING PHYSICIAN: Dr. Harjinder Joseph. CONSULTING PHYSICIAN: Dr. Les Madera. REASON FOR CONSULTATION: Anemia, liver transplant and decreased p.o. intake. HISTORY OF PRESENT ILLNESS: Ms. Jean is a 26-year-old female with significant medical history of liver transplant x2 secondary to biliary atresia, first one when she was 10 months old and second time in 2006, this was done at [facility] liver transplant team. She has been on Prograf and CellCept immunosuppressive agents. In the last few years, she is noted to have iron deficiency anemia. She also has chronic leukopenia and thrombocytopenia. She has been evaluated by hematology/oncology, recently [place] [facility] [place]. Suspect that her pancytopenia is related to her immunosuppressive medication and also splenomegaly. She has had multiple endoscopies within the last year including colonoscopy, an EGD that showed no signs of GI bleed. In fact at her last admission in April she had negative fecal occult blood testing. Her last EGD was in 09/15/2015 showed normal studies. Colonoscopy in 11/20/2015 also normal study except for internal hemorrhoids. Yesterday, she went into the ED with complaints of weakness, dizziness. Her outside labs showed a hemoglobin of 6.9, upon admission noted that her H\T\H was 7.9/26.6, WBC was 2.4, platelet count 130. She was admitted, given 1 unit of leukocyte reduced RBC transfusion, this morning hemoglobin was 7.6. She is still feeling somewhat weak and lightheaded. Denies any chest pain, shortness of breath, any abdominal pain, nausea, vomiting. She does report poor p.o. intake in the last few months with some weight loss; however, today reported that she would like to eat some solids instead of clear liquid diet. She denies any signs and symptoms of hematemesis, melena or rectal bleeding. She did have a heavy menses until about 2 months ago after she was started on OCPs to control this. States that since then OCP has been discontinued and she is no longer having any menstrual cycles at this time. She denies any hematuria. Of note, previously she had had iron infusions, but this was discontinued by heme-onc due to concerns for hemosiderin in her transplanted liver. She does not show any signs or symptoms of liver transplant rejection. T-bili currently is 0.6, AST 35, ALT 47, alkaline phosphatase 342. She mentioned that she would like to be transferred to [facility] where her liver transplant team is at wondering if this was feasible. PAST MEDICAL HISTORY: As noted in HPI above. PAST SURGICAL HISTORY: As noted, a change in HPI above. FAMILY HISTORY: Not related to current admission. SOCIAL HISTORY: Nonsmoker. No drug uses. ALLERGIES: No known drug allergies. MEDICATIONS: Current medication list reviewed in her EMR. REVIEW OF SYSTEMS: Please see HPI above. Rest of 12 systems reviewed are negative. PHYSICAL EXAMINATION: VITAL SIGNS: Temperature 36.8, respiration rate 18, blood pressure 107/70, O2 sat 97% on room air, heart rate 86. GENERAL: Ms. Jean is a 26-year-old female, pleasant, cooperative, does not appear to be in acute distress. HEENT: Head normocephalic. Eyes PERRLA. EOMs intact. NECK: Supple. Trachea midline. No JVD noted. CARDIOVASCULAR: Heart sounds RRR. S1, S2 present. No murmur or gallops noted. RESPIRATORY: Clear to auscultation bilaterally lung lobes. No respiratory distress or accessory muscle use noted. GASTROINTESTINAL: Abdomen soft, nontender to palpation. Bowel sounds present, extensive abdominal scar from post-surgical sites noted. LOWER EXTREMITIES: No edema on extremities. NEUROLOGIC: Awake, alert, oriented x3. No focal deficits noted. DIAGNOSTIC STUDIES: The patient's most recent labs have all been reviewed in her EMR. She has had prior imaging studies including chest x-ray, renal and liver ultrasound. Abdominal CT from November 2015 until May have been reviewed in her EMR. ASSESSMENT AND PLAN: Ms. Jean is a 26-year-old female with iron deficiency anemia, currently admitted for her outpatient hemoglobin at 6.9 and her feelings symptomatic complaining of weakness, dizziness. She received 1 unit of leukocyte reduced RBC transfusion last night. Hemoglobin on admission was 7.9, it is 7.6 this morning. She has no signs or symptoms of carlos gastrointestinal blood loss, has had several upper endoscopies and colonoscopy last year without any overt signs of gastrointestinal bleed noted. It was suspected that her pancytopenia is related to her immunosuppressive medications, also splenomegaly. She had been followed by hematology/oncology team previously in [place], now [place] [facility] [place] Initially, she had been receiving iron transfusion, but now it is decided that she should get blood transfusions as needed instead of continuous iron infusion due to concern for hemosiderin placement in the liver. As of this time we do not plan on any repeat endoscopies. Continue to monitor H/H and transfuse as needed. Will advance her diet. Also will discuss with primary hospitalist about possibly transferring her to [facility] for further care given that her liver transplant team is over there and the patient is also requesting for this. The above assessment has been reviewed with Dr. Madera who is in agreement with the stated plan. I have seen, examined, and agree with the plan as outlined by Ms. Thelma Preston , BLADE -Anemia without bleeding -? cellcept marrow suppression -Pt being transferred to [facility]
[2016-06-10] MEDS: ACETAMINOPHEN 325 MG TAB PO PRN (15:43)
[2016-06-10 17:29] LABS: HEMATOCRIT 31.3 % (37-47)
[2016-06-10] MEDS ORDERED: OPTIRAY 320 IV PRN (17:30)
--- NOTE | 2016-06-10 17:46 | Progress Note ---
Internal Med Progress Note Date of Service: June 10, 2016. Provider Documentation: SUBJECTIVE: feels tired and weak had her 2nd unit of PRBC transfusion tolerating diet well had mild nausea earlier , no vomiting had 1 bowel movement , soft reports of dark stool , no blood in stool no abdominal pain ,no fever or chills OBJECTIVE: Vital Signs-as noted below Exam: General-young female, no sign of distress Eyes-sclera non icteric Lungs-CTA , no wheeze or rales Heart-regular S1/S2 Abdomen-soft ,non tender Extremities-no rash or deformity Neuro-no focal deficit Lab data as noted below. 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, on detention immunosuppressive agents , chronic anemia; iron deficiency with multiple endoscopies with no acute bleed findings; also has chronic leukopenia and thrombocytopenia presents with anemia Symptomatic Acute on Chronic Iron Deficiency Anemia/Anemia of chronic disease presented for Hgb of 6.9 as per out pt lab associated with symptom of feeling weak and fatigued as per Hem/onc in [place], transfuse PRN (though goal is >7) s/p transfusion of one unit irradiated PRBC post transfusion H&H 7.6 pt still feels GARCIA with minimum activity repeat 1 unit of PRBC ordered follow H&H post transfusion on PPI BID GI eval requested -appreciate input no plan for EGD this admission she's had multiple colonoscopies/endoscopies with no definitive answers ordered stool for Heme occult ( report of dark stool ) has a history of hematuria, as well as menometrorrhagia and 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 of Hematuria follows with urology hx of recurrent UTIs, reports of worsening hematuria currently she is on Keflex prophylactically-which is continued UA and culture -ordered , no growth Biliary Atresia s/p Liver Transplantation initial one at age of 10 months second transplant in 2006 follows with hepatology in [place] LFT's wnl continue her immunosuppressive therapy-Cell cept check CT abdomen /pelvis with contrast Pancytopenia possible due to chronic immunosuppression/leading to bone marrow depression ? as per Hem/onc, may consider Neupogen if recurrent infections ordered for Neutropenic precaution follow CBC with diff peripheral blood smear ordered Heme onc consult requested DVT ppx encourage ambulation avoid pharmacological anticoagulation in setting of anemia , thrombocytopenia FULL CODE DISPOSITION possible discharge home when medically stable D/w pt's Mother Elvira Bush phone # [phone]/home phone # [phone] prefers that pt stays at [facility] if stable and have out pt follow up at [facility] Liver transplant Center and Hematology pt was previously followed with [facility] her new appointment with Adult transplant is next week pt is at present clinically stable will continue to correct her anemia and Hematology consult for further recommendation pt and Mother requests to be in contact with [facility] transplant team with any change of status [facility] transplant co ordinator : Donavan Moreira FAx # [phone] Vital Signs: Date Time Temp Pulse Resp B/P Pulse Ox O2 Delivery O2 Flow Rate FiO2 06/10/16 16:00 Room Air 06/10/16 15:42 37.2 96 18 104/68 99 Room Air 06/10/16 12:00 Room Air 06/10/16 11:45 37.3 89 18 120/83 100 06/10/16 11:15 36.9 85 18 101/67 99 06/10/16 10:41 36.9 92 18 120/84 100 06/10/16 10:22 37.2 78 16 103/69 99 06/10/16 08:05 36.8 86 18 107/70 97 06/10/16 08:00 Room Air 06/10/16 04:00 Room Air 06/10/16 02:57 36.4 76 16 109/71 99 Room Air 06/10/16 00:01 Room Air 06/10/16 00:00 36.9 80 18 99/64 99 Room Air 06/09/16 20:00 Room Air 06/09/16 19:08 37.3 90 18 103/67 99 06/09/16 18:20 37.1 94 12 121/79 100 06/09/16 18:15 37.1 94 16 121/79 100 Room Air 06/09/16 18:00 36.8 96 20 199/83 99 06/09/16 17:38 37.0 97 20 123/77 98 Lab Results: Results Past 24 Hours Test 06/09/16 20:20 06/09/16 21:51 06/10/16 06:47 06/10/16 17:21 Range/Units Urine Color ORANGE Urine Appearance CLEAR CLEAR Urine pH 4.5-7.5 Urine Specific [place] 1.018 1.000-1.030 Urine Protein NEG NEG Urine Glucose (UA) NEG Urine Ketones NEG Urine Occult Blood NEG Urine Nitrite NEG Urine Bilirubin NEG Urine Urobilinogen NEG Urine Leukocyte Esterase NEG Urine RBC 0-4 0-4 /hpf Urine WBC 1-5 0-5 /hpf Urine Epithelial Cells >30 0-5 /lpf Urine Bacteria 1+ NEG Urine Yeast BUDDING NONE PRSENT Urine Test NEG NEG Hemoglobin 7.8 7.6 9.8 12.0-16.0 g/dL Hematocrit 25.7 25.6 31.3 37-47 % White Blood Count 1.86 4.8-10.8 K/uL Red Blood Count 3.28 4.2-5.4 M/uL Mean Corpuscular Volume 78.0 80-100 fL Mean Corpuscular Hemoglobin 23.2 25-34 pg Mean Corpuscular Hemoglobin Concent 29.7 32-36 g/dl RDW Standard Deviation 47.8 36.4-46.3 fL RDW Coefficient of Variation 16.6 11.5-14.5 % Platelet Count 93 130-400 K/uL Platelet Estimate DECREASED Sodium Level 143 136-145 mmol/L Potassium Level 4.4 3.5-5.1 mmol/L Chloride Level 113 98-107 mmol/L Carbon Dioxide Level 24 21-32 mmol/L Anion Gap 6.0 3-11 mmol/L Blood Urea Nitrogen 15 7-18 mg/dl Creatinine 0.56 0.60-1.20 mg/dl Est Creatinine Clear Calc Drug Dose 115.4 ml/min Estimated GFR () > 150.0 Estimated GFR (Non- 130.5 BUN/Creatinine Ratio 26.7 10-20 Random Glucose 93 70-99 mg/dl Calcium Level 8.4 8.5-10.1 mg/dl Magnesium Level 1.7 1.8-2.4 mg/dl Microbiology Results 06/09/16 Urine Culture - Preliminary, Resulted NO GROWTH - LESS THAN 1,000 COLONIES/...
[2016-06-10] MEDS: DICYCLOMINE HCL 20 MG TAB PO SCH (21:39)
--- NOTE | 2016-06-10 22:41 | DIAGNOSTIC IMAGING REPORT ---
CT ABD WITH IV CONTRAST ONLY (CT) CT DOSE: 163.46 mGy.cm CLINICAL HISTORY: Abdominal pain. Anemia. TECHNIQUE: Patient was scanned without oral contrast. The patient was scanned in a dynamic helical fashion during intravenous administration of 94 cc of Optiray 320. COMPARISON STUDY: 12/01/2015 FINDINGS: Visualized portions of the lung bases reveal a trace right pleural effusion. A liver transplant is noted. There is mild periportal edema. No space-occupying hepatic masses are evident. There is trace pneumobilia. A normal intrahepatic portal vein is again not visualized. There is persistent marked splenomegaly (20 cm) There are upper abdominal varices including esophageal varices. These remain unchanged. No solid renal masses are visualized. There is a millimeter lower pole left renal cyst. Bowel evaluation is limited given the lack of orally administered contrast. There is suspected mild diffuse bowel wall edema. There is mild mesenteric edema and trace ascites. There is no evidence of abdominal aortic dilatation. The IVC appears patent. There is a stable right lateral abdominal wall hernia containing a small portion of small bowel IMPRESSION: 1. Liver transplant with stable mild periportal edema 2. Marked splenomegaly with upper abdominal varices 3. Interval development of a trace right pleural effusion 4. Interval development of mild mesenteric edema, trace ascites, and relatively diffuse mild bowel wall thickening Electronically signed by: Bon Silvestre M.D. 06/10/2016 10:39 PM Dictated Date/Time: 06/10/2016 10:31 PM
[2016-06-11] VITALS (10 sets, daily range): BP systolic 109–122; BP diastolic 70–85; PULSE 76–93; TEMP 36.7–37.3; O2SAT 98–100
[2016-06-11 07:52] LABS: MEAN CORPUSCULAR HGB CONC 30.9 g/dl (32-36)
[2016-06-11 08:20] LABS: HEMATOCRIT 27.8 % (37-47); MEAN CELL VOLUME 77.7 fL (80-100); RED BLOOD COUNT 3.58 M/uL (4.2-5.4); WHITE BLOOD COUNT 2.49 K/uL (4.8-10.8)
[2016-06-11 08:27] LABS: BUN/CREATININE RATIO 17.3 (10-20); CREATININE 0.75 mg/dl (0.60-1.20); MAGNESIUM 1.6 mg/dl (1.8-2.4); POTASSIUM 4.4 mmol/L (3.5-5.1)
[2016-06-11 08:28] LABS: PLATELET COUNT 90 K/uL (130-400)
[2016-06-11 08:47] LABS: THYROID STIMULATING HORMONE 1.29 uIu/ml (0.300-4.500)
[2016-06-11 08:59] LABS: CALCIUM 8.9 mg/dl (8.5-10.1)
[2016-06-11] MEDS: PANTOprazole INJ 40 MG in SYRINGE 0 ML IV SCH (09:10)
[2016-06-11] MEDS: CEPHALEXIN MONOHYDRATE 500 MG CAP PO SCH ×2 (09:10→13:51)
[2016-06-11] MEDS: TACROLIMUS 1 MG CAP PO SCH (09:11)
[2016-06-11] MEDS: PENTOSAN POLYSULFATE SODIUM 100 MG CAP PO SCH ×2 (09:11→13:50)
[2016-06-11] MEDS: MYCOPHENOLATE MOFETIL 250 MG CAP (CELLCEPT) PO SCH (09:11)
[2016-06-11] MEDS: URSODIOL 300 MG CAP PO SCH (09:11)
[2016-06-11] MEDS: LORATADINE 10 MG TAB PO SCH (09:11)
[2016-06-11] MEDS: BECLOMETHASONE DIP HFA 80 MCG 8.7G INH INH SCH (09:12)
[2016-06-11] MEDS ORDERED: PANTOprazole INJ 80 MG in DEXTROSE 5% 100ML IV SCH (11:15)
[2016-06-11] MEDS ORDERED: PANTOprazole INJ 40 MG in DEXTROSE 5% 100ML IV SCH (11:30)
--- NOTE | 2016-06-11 13:42 | Progress Note ---
Internal Med Progress Note Date of Service: June 11, 2016. Provider Documentation: SUBJECTIVE: had and uneventful night no nausea /vomiting , no bowel movement denies of any abdominal pain Lab in AM shows drop in Hb 9.8-> 8.6 stool heme occult positive pt evaluated at bedside, denies of any discomfort D/w GI specimen accessioner team , given complexity of the nature of illness ,pt should be transferred to T[facility]iary [facility] -where pt's liver transplant team available spoke with pt's mother Elvira Bush on phone in agreement with the transfer plan d/w Patient , agreed to be transferred to [facility] for further care OBJECTIVE: Vital Signs-as noted below Exam: General-young female, no sign of distress Eyes-sclera non icteric Lungs-CTA , no wheeze or rales Heart-regular S1/S2 Abdomen-multiple healed scar form prior surgery , non tender , bowel sound active Extremities-no rash or deformity Neuro-no focal deficit Lab data as noted below. 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, on alf immunosuppressive agents , chronic anemia; iron deficiency with multiple endoscopies with no acute bleed findings; also has chronic leukopenia and thrombocytopenia presents with anemia Symptomatic Acute on Chronic Iron Deficiency Anemia/Anemia of chronic disease presented for Hgb of 6.9 as per out pt lab associated with symptom of feeling weak and fatigued as per Hem/onc in [place], transfuse PRN (though goal is >7) s/p transfusion of total 2 units of irradiated PRBC post transfusion Hb improved to 9.8 yesterday at 1700 had one episode of dark stool stool check _ ve for heme occult GI eval requested -appreciate input no plan for EGD this admission she's had multiple colonoscopies/endoscopies with no definitive answers ordered stool for Heme occult ( report of dark stool ) has a history of hematuria, as well as menometrorrhagia and 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, 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 of Hematuria follows with urology hx of recurrent UTIs, reports of worsening hematuria currently she is on Keflex prophylactically-which is continued UA and culture -ordered , no growth Biliary Atresia s/p Liver Transplantation initial one at age of 10 months second transplant in 2006 follows with hepatology in [place] LFT's wnl continue her immunosuppressive therapy-Cell cept CT abdomen /pelvis with contrast IMPRESSION: 1. Liver transplant with stable mild periportal edema 2. Marked splenomegaly with upper abdominal varices 3. Interval development of a trace right pleural effusion 4. Interval development of mild mesenteric edema, trace ascites, and relatively diffuse mild bowel wall thickening pt is being transferred to [facility] -for further care Pancytopenia possible due to chronic immunosuppressive meds /leading to bone marrow depression Heme onc consult requested DVT ppx encourage ambulation avoid pharmacological anticoagulation in setting of anemia , thrombocytopenia FULL CODE DISPOSITION Transfer to [facility] for further care Accepting Hospitalist Dr Scott Vital Signs: Date Time Temp Pulse Resp B/P Pulse Ox O2 Delivery O2 Flow Rate FiO2 06/11/16 12:00 Room Air 06/11/16 11:33 36.9 86 20 122/85 99 Room Air 06/11/16 08:19 37.0 82 18 118/78 98 Room Air 06/11/16 08:00 Room Air 06/11/16 04:04 99 Room Air 06/11/16 04:00 37.0 76 18 109/74 99 Room Air 06/11/16 00:25 99 Room Air 06/11/16 00:03 36.9 80 18 109/70 100 Room Air 06/10/16 20:31 37.2 95 18 117/79 99 Room Air 06/10/16 20:00 99 Room Air 06/10/16 16:00 Room Air 06/10/16 15:42 37.2 96 18 104/68 99 Room Air Lab Results: Results Past 24 Hours Test 06/10/16 17:21 06/11/16 07:37 06/11/16 12:40 Range/Units Hemoglobin 9.8 8.6 12.0-16.0 g/dL Hematocrit 31.3 27.8 37-47 % White Blood Count 2.49 4.8-10.8 K/uL Red Blood Count 3.58 4.2-5.4 M/uL Mean Corpuscular Volume 77.7 80-100 fL Mean Corpuscular Hemoglobin 24.0 25-34 pg Mean Corpuscular Hemoglobin Concent 30.9 32-36 g/dl RDW Standard Deviation 47.5 36.4-46.3 fL RDW Coefficient of Variation 16.5 11.5-14.5 % Platelet Count 90 130-400 K/uL Sodium Level 141 136-145 mmol/L Potassium Level 4.4 3.5-5.1 mmol/L Chloride Level 111 98-107 mmol/L Carbon Dioxide Level 23 21-32 mmol/L Anion Gap 7.0 3-11 mmol/L Blood Urea Nitrogen 13 7-18 mg/dl Creatinine 0.75 0.60-1.20 mg/dl Est Creatinine Clear Calc Drug Dose 85.5 ml/min Estimated GFR () 129.3 Estimated GFR (Non- 111.6 BUN/Creatinine Ratio 17.3 10-20 Random Glucose 89 70-99 mg/dl Calcium Level 8.9 8.5-10.1 mg/dl Magnesium Level 1.6 1.8-2.4 mg/dl Total Bilirubin 0.5 0.2-1 mg/dl Direct Bilirubin 0.2 0-0.2 mg/dl Aspartate Amino Transf (AST/SGOT) 27 15-37 U/L Alanine Aminotransferase (ALT/SGPT) 35 12-78 U/L Alkaline Phosphatase 266 45-117 U/L Total Protein 5.5 6.4-8.2 gm/dl Albumin 2.4 3.4-5.0 gm/dl Thyroid Stimulating Hormone (TSH) 1.290 0.300-4.500 uIu/ml Lactate Dehydrogenase 159 84-246 U/L
--- NOTE | 2016-06-11 13:50 | Gastroenterology Progress Note ---
Progress Note Date of Service: June 11, 2016 Subjective Pt evaluation today including: conversation w/ patient, physical exam The patient notes no new changes overnight. She does continue to have abdominal cramping which is been a chronic complaint. I was called this afternoon due to a question about refractory anemia despite transfusions. She is heme positive and had dark stool but is not sticky nor is there gross blood within it. She believes her most recent bowel movement was brown Review of Systems Constitutional: No fever, No sweats ENT: No sore throat, No trouble swallowing Respiratory: No cough, No wheezing Medications Current Inpatient Medications Medications (Trade) Dose Ordered Sig/Harley Route Start Time Stop Time Status Last Admin Dose Admin Beclomethasone Dipropionate (Qvar 80 Mcg Hfa Inhaler) 2 puffs BID INH 06/09/16 21:00 07/09/16 20:59 06/11/16 09:12 2 PUFFS Dicyclomine HCl (Bentyl Tab) 20 mg QPM PO 06/09/16 21:00 07/09/16 20:59 06/10/16 21:39 20 MG Mycophenolate Mofetil (Cellcept Cap) 1,000 mg QAM PO 06/10/16 09:00 07/10/16 08:59 06/11/16 09:11 1,000 MG Tacrolimus (Prograf Cap) 3 mg BID PO 06/09/16 21:00 07/09/16 20:59 06/11/16 09:11 3 MG Ursodiol (Actigall Cap) 300 mg BID PO 06/09/16 21:00 07/09/16 20:59 06/11/16 09:11 300 MG Albuterol (Ventolin Hfa Inhaler) 2 puffs QID PRN INH 06/09/16 16:00 07/09/16 15:59 Pentosan Polysulfate Sodium (Elmiron) 100 mg TID PO 06/09/16 21:00 07/09/16 20:59 06/11/16 09:11 100 MG Loratadine (Claritin Tab) 10 mg DAILY PO 06/10/16 09:00 07/10/16 08:59 06/11/16 09:11 10 MG Cephalexin Monohydrate (Keflex Cap) 500 mg TID PO 06/09/16 21:00 06/19/16 20:59 06/11/16 09:10 500 MG Miscellaneous (Iv Fluids Completed) 1 ea PRN PRN N/A 06/09/16 18:30 06/09/17 18:29 Acetaminophen (Tylenol Tab) 650 mg Q6H PRN PO 06/09/16 19:30 07/09/16 19:29 06/10/16 15:43 650 MG Ioversol 111 ml 111 ml UD PRN IV 06/10/16 17:30 06/14/16 17:29 Pantoprazole Sodium/Dextrose (Protonix Inj/D5 100ml) 100 ml @ 20 mls/hr Q5H IV 06/11/16 11:30 07/11/16 11:29 06/11/16 11:35 20 MLS/HR Objective Vital Signs Date Time Temp Pulse Resp B/P Pulse Ox O2 Delivery O2 Flow Rate FiO2 06/11/16 12:00 Room Air 06/11/16 11:33 36.9 86 20 122/85 99 Room Air 06/11/16 08:19 37.0 82 18 118/78 98 Room Air 06/11/16 08:00 Room Air 06/11/16 04:04 99 Room Air 06/11/16 04:00 37.0 76 18 109/74 99 Room Air 06/11/16 00:25 99 Room Air 06/11/16 00:03 36.9 80 18 109/70 100 Room Air 06/10/16 20:31 37.2 95 18 117/79 99 Room Air 06/10/16 20:00 99 Room Air 06/10/16 16:00 Room Air 06/10/16 15:42 37.2 96 18 104/68 99 Room Air Physical Exam General Appearance: no apparent distress Neck: no JVD Respiratory/Chest: lungs clear Abdomen: soft, + pertinent finding (patient with large amount of scarring from prior abdominal surgeries) Neurologic/Psych: oriented x 3 Skin: no jaundice Laboratory Results Last 24 Hours Test 06/10/16 17:21 06/11/16 07:37 06/11/16 12:40 Hemoglobin 9.8 g/dL 8.6 g/dL Hematocrit 31.3 % 27.8 % White Blood Count 2.49 K/uL Red Blood Count 3.58 M/uL Mean Corpuscular Volume 77.7 fL Mean Corpuscular Hemoglobin 24.0 pg Mean Corpuscular Hemoglobin Concent 30.9 g/dl RDW Standard Deviation 47.5 fL RDW Coefficient of Variation 16.5 % Platelet Count 90 K/uL Sodium Level 141 mmol/L Potassium Level 4.4 mmol/L Chloride Level 111 mmol/L Carbon Dioxide Level 23 mmol/L Anion Gap 7.0 mmol/L Blood Urea Nitrogen 13 mg/dl Creatinine 0.75 mg/dl Est Creatinine Clear Calc Drug Dose 85.5 ml/min Estimated GFR () 129.3 Estimated GFR (Non- 111.6 BUN/Creatinine Ratio 17.3 Random Glucose 89 mg/dl Calcium Level 8.9 mg/dl Magnesium Level 1.6 mg/dl Total Bilirubin 0.5 mg/dl Direct Bilirubin 0.2 mg/dl Aspartate Amino Transf (AST/SGOT) 27 U/L Alanine Aminotransferase (ALT/SGPT) 35 U/L Alkaline Phosphatase 266 U/L Total Protein 5.5 gm/dl Albumin 2.4 gm/dl Thyroid Stimulating Hormone (TSH) 1.290 uIu/ml Lactate Dehydrogenase 159 U/L Assessment and Plan Patient with a history of refractory anemia despite recent transfusion. I wonder if this may be multifactorial problem partially related to her long- standing immunosuppression causing bone marrow suppression. Given the complexity of her case she may be best served at a tertiary center with expertise and transplant care as her immunosuppression probably needs to be altered. I agree that starting of proton pump inhibitor would be beneficial. At this time there is no evidence of gross gastrointestinal bleeding. If the patient is to stay at this hospital we could certainly provide an upper endoscopy either Monday if necessary or Monday. Recommendations Consider referral to a tertiary center with transplant hepatology coverage Agree with use of a proton pump inhibitor Nothing by mouth at midnight if patient is not transferred in case urgent endoscopy is needed
[2016-06-11] MEDS ORDERED: PANT1TAB48 PO (13:51)
--- NOTE | 2016-06-11 13:54 | Discharge Instructions ---
Discharge Instructions Date of Service June 11, 2016. Admission Reason for Admission: Hx Of Transplantation, Liver, Symptomatic Anemia Discharge Discharge Diagnosis / Problem: SYMPTOMATIC ANEMIA /S/P LIVER TRANSPLANT Discharge Goals Goal(s): Improve disease control, Diagnostic testing Activity Recommendations Activity Limitations: resume your previous activity Driving or Machine Use: no limitations . Instructions / Follow-Up Instructions / Follow-Up FOLLOW UP WITH TRANSPLANT TEAM /CONFIGURATION MANAGEMENT ADMINISTRATOR AT [facility] Current Hospital Diet Patient's current hospital diet: Clear Liquid Diet Discharge Diet Recommended Diet: Clear Liquid Diet Pending Studies Studies pending at discharge: no Medical Emergencies . Who to Call and When: Medical Emergencies: If at any time you feel your situation is an emergency, please call 911 immediately. . Non-Emergent Contact Non-Emergency issues call your: Specialist (LIVER TRANSPLANT TEAM / CONFIGURATION MANAGEMENT ADMINISTRATOR ) . . "Provider Documentation" section prepared by Mariza Muñoz. . VTE Core Measure Inpt VTE Proph given/why not?: Treatment not indicated [place] Drug Monitoring Program Search Results: no issues identified
--- NOTE | 2016-06-11 14:16 | Discharge Summary ---
Discharge Summary Date of Service June 11, 2016. Discharge Summary Admission Date: June 10, 2016 at 17:15 Discharge Date: June 11, 2016 Discharge Disposition: Acute care facility ([facility] ) Principal Diagnosis: SYMPTOMATIC ANEMIA /S/P LIVER TRANSPLANT Procedures: CT abdomen /pelvis with IV Contrast : IMPRESSION: 1. Liver transplant with stable mild periportal edema 2. Marked splenomegaly with upper abdominal varices 3. Interval development of a trace right pleural effusion 4. Interval development of mild mesenteric edema, trace ascites, and relatively diffuse mild bowel wall thickening Consultations: BLAKE GI Medication Reconciliation New Medications: Pantoprazole (Protonix) 40 Mg Tab 40 MG PO BID, #30 TAB Continued Medications: Albuterol Sulfate (Proair Respiclick) 108 Mcg/Act Aer 2 PUFFS INH QID PRN for Wheezing Beclomethasone Dip (Qvar) 80 Mcg/Act Aer 1 PUFF INH BID Cephalexin Monohydrate (Keflex) 500 Mg Cap 500 MG PO TID, #15 CAP Dicyclomine Hcl (Bentyl) 20 Mg Tab 20 MG PO QPM, TAB Loratadine (Claritin) 10 Mg Cap 1 CAP PO BID Mycophenolate Mofetil (Cellcept) 500 Mg Tab 2 TAB PO QAM Pentosan Polysulfate Sodium (Elmiron) 100 Mg Cap 100 MG PO TID, CAP Tacrolimus (Prograf) 1 Mg Cap 3 CAP PO BID Ursodiol (Actigall) 300 Mg Cap 300 MG PO BID, CAP Admission Information HPI (per Admitting provider): This is a 26 year old female with an extensive PMH which includes 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 She states she feels weak and tired, which she usually does when her Hgb is low. She follows with Hem/onc in [place]. She had been receiving iron infusions, but due to side effects, this was stopped. She was started on Aranesp, but this was not covered by insurance. As per Hem/onc in [place], she should have monthly CBCs and transfuse if Hgb < 7 or if she becomes symptomatic. In two weeks she has an appointment to see Hematology in [place]. Currently, no chest pain/shortness of breath; she is c/o chronic back pain; no abdominal pain, but decreased PO intake, weakness, lethargy. Physical Exam (per Admitting): General Appearance: no apparent distress, + pertinent finding (+tired, weak) Head: normocephalic, atraumatic Eyes: normal inspection ENT: hearing grossly normal Neck: supple Respiratory/Chest: chest non-tender, lungs clear, normal breath sounds, no respiratory distress, no accessory muscle use Cardiovascular: regular rate, rhythm, no edema, no gallop, no murmur Abdomen/GI: normal bowel sounds, non tender, + pertinent finding (+scar tissue on abdomen) Extremities/Musculoskelatal: normal inspection, no calf tenderness, normal capillary refill, no pedal edema Neurologic/Psych: tick inspector II-XII nml as tested, no motor/sensory deficits, alert , normal mood/affect, oriented x 3 Skin: normal color Lymphatic: no adenopathy Hospital Course This is a 26 year old female with an extensive PMH which includes 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, 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 , chronic anemia; iron deficiency with multiple endoscopies with no acute bleed findings; also has chronic leukopenia and thrombocytopenia presents with anemia Symptomatic Acute on Chronic Iron Deficiency Anemia/Anemia of chronic disease presented for Hgb of 6.9 as per out pt lab associated with symptom of feeling weak and fatigued as per Hem/onc in [place], transfuse PRN (though goal is >7) s/p transfusion of total 2 units of irradiated PRBC post transfusion Hb improved to 9.8 yesterday at 1700 had one episode of dark stool stool check _ ve for heme occult GI eval requested -appreciate input no plan for EGD this admission she's had multiple colonoscopies/endoscopies with no definitive answers ordered stool for Heme occult ( report of dark stool ) has a history of hematuria, as well as menometrorrhagia and follows 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 urology 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, respectively She is to follow with Hem/onc in [place] in two weeks Aranesp is too costly and not covered as per patient this AM labs shows Hb drop to 8.6 no symptom of hemodynamic compromise no evidence of GI bleed 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 of Hematuria follows with urology hx of recurrent UTIs, reports of worsening hematuria currently she is on Keflex prophylactically-which is continued UA and culture -ordered , no growth Biliary Atresia s/p Liver Transplantation initial one at age of 10 months second transplant in 2006 follows with hepatology in [place] LFT's wnl continue her immunosuppressive therapy-Cell cept CT abdomen /pelvis with contrast IMPRESSION: 1. Liver transplant with stable mild periportal edema 2. Marked splenomegaly with upper abdominal varices 3. Interval development of a trace right pleural effusion 4. 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 Discharge Instructions Discharge Instructions Date of Service June 11, 2016. Admission Reason for Admission: Hx Of Transplantation, Liver, Symptomatic Anemia Discharge Discharge Diagnosis / Problem: SYMPTOMATIC ANEMIA /S/P LIVER TRANSPLANT Discharge Goals Goal(s): Improve disease control, Diagnostic testing Activity Recommendations Activity Limitations: resume your previous activity Driving or Machine Use: no limitations . Instructions / Follow-Up Instructions / Follow-Up FOLLOW UP WITH TRANSPLANT TEAM /NEWS ANALYST AT [facility] Current Hospital Diet Patient's current hospital diet: Clear Liquid Diet Discharge Diet Recommended Diet: Clear Liquid Diet Pending Studies Studies pending at discharge: no Medical Emergencies . Who to Call and When: Medical Emergencies: If at any time you feel your situation is an emergency, please call 911 immediately. . Non-Emergent Contact Non-Emergency issues call your: Specialist (LIVER TRANSPLANT TEAM / NEWS ANALYST ) . . "Provider Documentation" section prepared by Mariza Muñoz. . VTE Core Measure Inpt VTE Proph given/why not?: Treatment not indicated [place] Drug Monitoring Program Search Results: no issues identified
[2016-06-11] MEDS ORDERED: PANTOprazole SOD 40 MG TAB PO SCH (21:00)
== END 2016-06-11 19:33 | disposition short-term general hospital (02) | DRG 811 ==
LOC: ENRESERVTM → ENRESERVDT → C.EDB 13:11 → C.2T 16:05 → OBSVTOIN 06-10 17:15
PROVIDERS: ADMIT Family Medicine; ATTEND Hospitalist
DX: D50.9 Iron deficiency anemia, unspecified (principal); Q44.2 Atresia of bile ducts; Z94.4 Liver transplant status; D61.818 Other pancytopenia; Z79.899 Other long term (current) drug therapy

== ENCOUNTER 2018-03-31 16:05 | Inpatient (IN) ==
[2018-03-31] MEDS ORDERED: SODIUM CHLORIDE 0.9% 1000ML 1,000 ML IV STA (16:29)
[2018-03-31 17:17] LABS: INR 1.2 (0.9-1.1); Partial Thromboplastin Ratio 1.6; Partial Thromboplastin Time 42.2 Seconds (21.0-31.0); Prothrombin Time 12.4 Seconds (9.0-12.0)
[2018-03-31 17:20] LABS: Hematocrit (blood only) 19.6 % (37-47); Hemoglobin 5.9 g/dL (12.0-16.0); Mean Corpuscular Hgb Conc 30.1 g/dL (32-36); Mean Corpuscular Volume 108.9 fL (80-100); Mean Platelet Volume 10.6 fL (7.4-10.4); Nucleated RBC % (auto) 1.4 %; Platelet Count 224 K/uL (130-400); RDW Coefficient of Variation 25.8 % (11.5-14.5); RDW Standard Deviation 96.6 fL (36.4-46.3); White Blood Count 14.25 K/uL (4.8-10.8)
[2018-03-31 17:24] LABS: Albumin Level 2.4 gm/dl (3.4-5.0); BUN Creatinine Ratio 25.5 (10-20); Calcium 7.8 mg/dl (8.5-10.1); Est GFR (Non-African American) 125.1; Potassium 3.2 mmol/L (3.5-5.1)
[2018-03-31 17:27] LABS: Albumin Globulin Ratio 0.6 (0.9-2); Bilirubin,Total 1.8 mg/dl (0.2-1); Globulin 4.2 gm/dl (2.5-4.0); Total Protein 6.6 gm/dl (6.4-8.2)
[2018-03-31 17:35] LABS: Anisocytosis Present; Basophils # (auto) 0.05 K/uL (0-0.2); Basophils % (auto) 0.4 %; Eosinophils # (auto) 0.32 K/uL (0-0.5); Eosinophils % (auto) 2.2 %; Immature Granulocytes # (auto) 0.05 K/uL (0.00-0.02); Immature Granulocytes % (auto) 0.4 %; Lymphocytes % (auto) 12.6 %; Monocytes # (auto) 0.66 K/uL (0.11-0.59); Monocytes % (auto) 4.6 %; Neutrophils # (auto) 11.37 K/uL (1.4-6.5); Neutrophils % (auto) 79.8 %; Polychromasia 1+; Tear Drop Cells 1+
[2018-03-31] MEDS ORDERED: SODIUM CHLORIDE 0.9% 250 ML IV PRN ×2 (19:51→22:14)
[2018-03-31] MEDS ORDERED: ACETAMINOPHEN 500 MG TAB PO STA (19:51)
[2018-03-31] MEDS ORDERED: DiphenhydrAMINE HCL 50 MG/ML VIAL IV STA (19:51)
--- NOTE | 2018-03-31 20:45 | Emergency Department Note ---
Entered by London Lamar acting as a scribe for ED Provider Note CHIEF COMPLAINT: Low hemoglobin HISTORY OF PRESENT ILLNESS: The patient is a 28 year old female that presents to the ED after being referred here for having a low hemoglobin level of 5.7. The patient typically runs around 8-10 and has had several blood transfusions. The patient is a two time liver transplant recipient, the first occurring when she was 10 months and the second at 17 years old. The patient's father states she has had a GI bleed that is the cause of the patient losing so much blood and that when her hemoglobin gets low she gets more confused and slow to respond. The patient was in [facility] transplant facility 2 weeks ago where she received her most recent blood transfusions. She also had high ammonia for which she was prescribed lactulose. The patient also has had abdominal pain, melena, hematochezia, and diarrhea. 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 She is on mycophenolic acid and Tacrolimus for anti organ rejection. Pt denies LOC, headache, fevers, chills, diaphoresis, visual changes, neck pain , chest pain, breathing difficulties, nausea, vomiting, abdominal pain, back pain, hematochezia, urinary symptoms, numbness, weakness, lymphadenopathy, rash , or other complaints. REVIEW OF SYSTEMS: See HPI for pertinent positives and negatives. A total of ten systems were reviewed and were otherwise negative. PMHx/PSHx: Liver transplant (x2), anemia, congenital biliary atresia, and EGD SOCIAL HISTORY: Patient lives at home. PHYSICAL EXAM: GENERAL: Awake, alert, tired-appearing, in no distress HENT: Normocephalic, atraumatic. Oropharynx unremarkable. Pale tongue. EYES: Pale conjunctiva. Sclera non-icteric. NECK: Inspection normal. Non-tender. Supple. No nuchal rigidity. FROM. No masses. RESPIRATORY: Clear to auscultation. No wheezes. No rales. Normal respiratory effort. CARDIAC: Tachycardic rate. Normal rhythm. No murmurs. No rubs. Extremities warm and well perfused. Pulses equal. No JVD. GI: Soft, non-distended. No tenderness to palpation. No rebound or guarding. No masses. Enlarged liver and spleen. RECTAL: Deferred. MUSCULOSKELETAL: Generalized muscular atrophy, atraumatic. Chest examination reveals no tenderness. The back is symmetrical on inspection without obvious abnormality. There is no CVA tenderness to palpation. No joint edema. LOWER EXTREMITIES: Calves are equal size bilaterally and non-tender. No edema. No discoloration. NEURO: Normal sensorium. No sensory or motor deficits noted. SKIN: No rash or jaundice noted. EMERGENCY DEPARTMENT COURSE: 1619: Past medical records reviewed. The patient was evaluated in room B06, and a complete history and physical examination were performed. 1841: I reevaluated the patient and she is stable. We are waiting for [facility] to call back. 1899: I spoke to Dr. Fleming - [facility] Transplant facility about the patient's case to learn more about the patient and update him on today's situation. 1934: I spoke to Dr. Fleming again and he said to transfuse her as normal. Also , he informed me that she does not require transfer. 1944: [facility] about the patient's case and he is going to accept her for further evaluation and treatment. 1954: I consented for the blood transfusion. MEDICAL DECISION MAKING: Prior records/ancillary studies reviewed. Triage Nursing notes reviewed and agree them. Additional history obtained from the patient's father. The patient's history was concerning for possible gastrointestinal bleeding with severe anemia and liver transplantation. Differential diagnosis: Etiologies such as complication of transplant, diverticulosis, AVM, coagulopathy, colitis, inflammatory bowel disease, malignancy,Collette-Arzate tear , esophagitis, peptic ulcer disease, variceal bleed, gastritis, epistaxis, fissure, hemorrhoids, as well as others were entertained. Physical exam: As above. ER treatment provided: Consented for packed red blood cell transfusion Saline hydration Oral Tylenol IV Benadryl Packed red cell transfusion Diagnostics interpreted by me: The labs revealed a mild leukocytosis on CBC. Severe anemia noted with a hemoglobin of 5.9. The patient has mild elevation of LFTs. Ammonia level was elevated at 129. Imaging studies: Deferred The patient is requesting to be admitted here. I discussed her findings with her. She feels comfortable. She is consented for transfusion. Consultation: Consultation was placed with [facility] transplant. I discussed the case with Dr. Fleming. He reviewed the patient's information and noted that when she was discharged hemoglobin was 8.0. He recommended transfusion. He did not feel that she would require transfer this evening. He asked that the patient have her case discussed with hepatology if there are any issues that worsen. The patient's ammonia level at discharge was 174. A consultation was placed with the [facility] hospitalist. The case was discussed and diagnostics were reviewed. The patient was evaluated in the ER for further treatment. IMPRESSION: Severe anemia Hyperammonemia GI bleed S/p liver transplant PLAN: Evaluated by hospitalist The scribe's documentation has been prepared under my direction and personally reviewed by me in its entirety. I confirm that the note above accurately reflects all work, treatment, procedures, and medical decision making performed by me. Impression & Plan Severe anemia, Hyperammonemia, GI bleed, S/P liver transplant Past Med/Surg History Social History Feels Safe at Home: Yes Smoking Status: Never smoker Preferred Language: Belarusian Results & Data Vital Signs Vital Signs - 24 hr 03/31/18 16:08 03/31/18 17:05 03/31/18 18:03 Temperature 36.8 C Temperature Source Oral Sepsis Recent Fever Within 48 Hours No Sepsis New/Unexplained Change in Mental Status No Sepsis Action Taken by Nursing No Action Required Pulse Rate 96 H 88 Pulse Rate [Right Finger] 88 89 Pulse Rhythm Regular Pulse Strength Respiratory Rate 18 19 20 Respiratory Effort / Characteristics Non-Labored Spontaneous Respiratory Depth Normal Respiratory Pattern Regular Blood Pressure 104/70 Blood Pressure [Right Arm] 110/70 113/75 Blood Pressure Mean 81 Blood Pressure Mean [Right Arm] 83 87 Blood Pressure Position Blood Pressure Position [Right Arm] Lying Pulse Oximetry 98 100 100 Oxygen Delivery Method Room Air Room Air 03/31/18 20:33 Temperature 36.4 C L Temperature Source Oral Sepsis Recent Fever Within 48 Hours Sepsis New/Unexplained Change in Mental Status Sepsis Action Taken by Nursing Pulse Rate 91 H Pulse Rate [Right Finger] Pulse Rhythm Regular Pulse Strength Normal Respiratory Rate 14 Respiratory Effort / Characteristics Respiratory Depth Respiratory Pattern Blood Pressure 116/86 Blood Pressure [Right Arm] Blood Pressure Mean 96 Blood Pressure Mean [Right Arm] Blood Pressure Position Sitting Blood Pressure Position [Right Arm] Pulse Oximetry 100 Oxygen Delivery Method Home Medications Current Medication List: was personally reviewed by me Laboratory Data Attestation: I reviewed the patient's lab results. Result diagrams: 03/31/18 16:48 03/31/18 16:48 Lab Results 03/31/18 03/31/18 03/31/18 Range/Units 16:48 16:48 16:48 WBC 14.25 H (4.8-10.8) K/uL RBC 1.80 L (4.2-5.4) M/uL Hgb 5.9 L* (12.0-16.0) g/dL Hct 19.6 L* (37-47) % MCV 108.9 H (80-100) fL MCH 32.8 (25-34) pg MCHC 30.1 L (32-36) g/dL RDW Std Deviation 96.6 H (36.4-46.3) fL RDW Coeff of Chilo 25.8 H (11.5-14.5) % Plt Count 224 (130-400) K/uL MPV 10.6 H (7.4-10.4) fL Immature Gran % (Auto) 0.4 % Neut % (Auto) 79.8 % Lymph % (Auto) 12.6 % [place] % (Auto) 4.6 % Eos % (Auto) 2.2 % Baso % (Auto) 0.4 % Immature Gran # (Auto) 0.05 H (0.00-0.02) K/uL Neut # (Auto) 11.37 H (1.4-6.5) K/uL Lymph # (Auto) 1.80 (1.2-3.4) K/uL [place] # (Auto) 0.66 H (0.11-0.59) K/uL Eos # (Auto) 0.32 (0-0.5) K/uL Baso # (Auto) 0.05 (0-0.2) K/uL Absolute Nucleated RBC 0.20 H (0-0) K/uL Nucleated RBC % (auto) 1.4 % Polychromasia 1+ Anisocytosis Present Tear Drop Cells 1+ PT 12.4 H (9.0-12.0) Seconds INR 1.2 H (0.9-1.1) APTT 42.2 H (21.0-31.0) Seconds PTT Ratio 1.6 Sodium 139 (136-145) mmol/L Potassium 3.2 L (3.5-5.1) mmol/L Chloride 104 (98-107) mmol/L Carbon Dioxide 31 (21-32) mmol/L Anion Gap 4.0 (3-11) BUN 16 (7-18) mg/dl Creatinine 0.61 (0.6-1.2) mg/dl Est Cr Clr Drug Dosing 77.0 ml/min Est GFR ( Amer) 145.0 Est GFR (Non-Af Amer) 125.1 BUN/Creatinine Ratio 25.5 H (10-20) Glucose 115 H (70-99) mg/dl Calcium 7.8 L (8.5-10.1) mg/dl Total Bilirubin 1.8 H (0.2-1) mg/dl AST 127 H (15-37) U/L ALT 78 (12-78) U/L Alkaline Phosphatase 896 H (45-117) U/L Ammonia (11-32) umol/L Total Protein 6.6 (6.4-8.2) gm/dl Albumin 2.4 L (3.4-5.0) gm/dl Globulin 4.2 H (2.5-4.0) gm/dl Albumin/Globulin Ratio 0.6 L (0.9-2) Blood Type Antibody Screen Crossmatch 03/31/18 03/31/18 Range/Units 16:48 16:48 WBC (4.8-10.8) K/uL RBC (4.2-5.4) M/uL Hgb (12.0-16.0) g/dL Hct (37-47) % MCV (80-100) fL MCH (25-34) pg MCHC (32-36) g/dL RDW Std Deviation (36.4-46.3) fL RDW Coeff of Chilo (11.5-14.5) % Plt Count (130-400) K/uL MPV (7.4-10.4) fL Immature Gran % (Auto) % Neut % (Auto) % Lymph % (Auto) % [place] % (Auto) % Eos % (Auto) % Baso % (Auto) % Immature Gran # (Auto) (0.00-0.02) K/uL Neut # (Auto) (1.4-6.5) K/uL Lymph # (Auto) (1.2-3.4) K/uL [place] # (Auto) (0.11-0.59) K/uL Eos # (Auto) (0-0.5) K/uL Baso # (Auto) (0-0.2) K/uL Absolute Nucleated RBC (0-0) K/uL Nucleated RBC % (auto) % Polychromasia Anisocytosis Tear Drop Cells PT (9.0-12.0) Seconds INR (0.9-1.1) APTT (21.0-31.0) Seconds PTT Ratio Sodium (136-145) mmol/L Potassium (3.5-5.1) mmol/L Chloride (98-107) mmol/L Carbon Dioxide (21-32) mmol/L Anion Gap (3-11) BUN (7-18) mg/dl Creatinine (0.6-1.2) mg/dl Est Cr Clr Drug Dosing ml/min Est GFR ( Amer) Est GFR (Non-Af Amer) BUN/Creatinine Ratio (10-20) Glucose (70-99) mg/dl Calcium (8.5-10.1) mg/dl Total Bilirubin (0.2-1) mg/dl AST (15-37) U/L ALT (12-78) U/L Alkaline Phosphatase (45-117) U/L Ammonia 129.5 H (11-32) umol/L Total Protein (6.4-8.2) gm/dl Albumin (3.4-5.0) gm/dl Globulin (2.5-4.0) gm/dl Albumin/Globulin Ratio (0.9-2) Blood Type A Positive Antibody Screen NEGATIVE Crossmatch See Detail Administered Medications Sodium Chloride (Nss 1000ml) 1,000 mls @ 50 mls/hr IV .Q20H STA Stop: 04/01/18 12:28 Last Admin: 03/31/18 16:58 Dose: 50 mls/hr Sodium Chloride (Nss 250ml) 250 mls @ 15 mls/hr IV .[id number] PRN PRN Reason: For Transfusion Stop: 04/30/18 19:50 Last Admin: 03/31/18 20:30 Dose: 15 mls/hr Discontinued Medications Acetaminophen (Tylenol) 500 mg PO NOW STA Stop: 03/31/18 19:52 Last Admin: 03/31/18 20:30 Dose: 500 mg Diphenhydramine HCl (Benadryl) 25 mg IV NOW STA Stop: 03/31/18 19:52 Last Admin: 03/31/18 20:30 Dose: 25 mg Blood Pressure Blood Pressure Findings: Normal blood pressure Discharge Plan Visit Data Chief Complaint: Referred by Doctor Stated Complaint: LOW BLOOD COUNT ED Provider: Vin Henderson Discharge Problem: Severe anemia, Hyperammonemia, GI bleed, S/P liver transplant Patient Disposition: Being Evaluated by Hospitalist Forms Stand Alone Forms: My [facility] Prescriptions Prescriptions: No Action dicyclomine 20 mg tablet 20 mg PO BID RF: 0 furosemide 20 mg tablet 20 mg PO DAILY RF: 0 norethindrone (contraceptive) 0.35 mg tablet 0.35 mg PO DAILY RF: 0 propranolol 20 mg tablet 20 mg PO BID RF: 0 lactulose 10 gram/15 mL solution 15 ml PO BID RF: 0 omeprazole 40 mg capsule,delayed release(DR/EC) 40 mg PO DAILY RF: 0 duloxetine 20 mg capsule,delayed release(DR/EC) 20 mg PO DAILY RF: 0 mycophenolate mofetil [CellCept] 500 mg Tablet 500 mg PO BID RF: 0 ursodiol [Actigall] 300 mg Capsule 300 mg PO BID RF: 0 tacrolimus 1 mg Capsule 2 mg PO Q12H RF: 0 loratadine 10 mg Tablet 10 mg PO DAILY PRN (Reason: Allergy Symptoms) RF: 0 albuterol sulfate [ProAir RespiClick] 90 mcg/actuation Aerosol Powdr Breath Activated 2 inh INHALATION QID PRN (Reason: Wheezing) RF: 0 lorazepam [Ativan] 2 mg/mL Solution 0.5 mg SUBLINGUAL BID PRN (Reason: Nausea) RF: 0 levothyroxine 25 mcg Capsule 25 mcg PO DAILY RF: 0 nortriptyline 25 mg 25 mg PO HS RF: 0 Referrals Referrals: Marlo Jerry MD [Primary Care Provider] - The scribe's documentation has been prepared under my direction and personally reviewed by me in its entirety. I confirm that the note above accurately reflects all work, treatment, procedures, and medical decision making performed by me.
[2018-03-31] MEDS ORDERED: POTASSIUM CHLORIDE 10 MEQ TABCR PO STA (22:14)
[2018-03-31] MEDS ORDERED: NITROGLYCERIN SL 0.4 MG/TAB TAB SL PRN (22:14)
[2018-03-31] MEDS ORDERED: LORATADINE 10 MG TAB PO PRN (22:14)
[2018-03-31] MEDS ORDERED: ONDANSETRON INJ 2 MG/ML 2 ML VIAL IV PRN (22:14)
[2018-03-31] MEDS ORDERED: ACETAMINOPHEN 325 MG TAB PO PRN (22:14)
[2018-03-31] MEDS: DICYCLOMINE HCL 20 MG TAB PO SCH (23:37)
[2018-03-31] MEDS: LACTULOSE SYRUP 20 GM/30 ML UDC PO SCH (23:37)
[2018-03-31] MEDS: URSODIOL 300 MG CAP PO SCH (23:38)
[2018-03-31] MEDS: MYCOPHENOLATE MOFETIL 250 MG CAP PO SCH (23:38)
[2018-03-31] MEDS: TACROLIMUS 1 MG CAP PO SCH (23:38)
[2018-04-01] MEDS: BCP'S~ORDER AWAITING ACTION SCH ×4 (00:15→23:35)
[2018-04-01] MEDS ORDERED: LORazepam 0.5 MG TAB SL PRN (00:32)
[2018-04-01] MEDS ORDERED: ALBUTEROL HFA 8 GM INHALER INH PRN (00:32)
--- NOTE | 2018-04-01 00:41 | History and Physical Report ---
DATE OF ADMISSION: 03/31/2018 CHIEF COMPLAINT: Anemia. HISTORY OF PRESENT ILLNESS: This is a 28-year-old female with past medical history significant for congenital biliary atresia, status post liver transplant, first one when she was 10 months old, second was in 2006, follows with hepatology at [facility]. History of chronic anemia, history of GI bleeding, , history of acquired hypothyroidism, hypoalbuminemia, severe malnutrition, recurrent UTIs, cachexia, pancytopenia secondary to bone marrow suppression from immunosuppressants, iron deficiency anemia due to chronic blood loss, portal vein thrombosis of the transplanted liver, gastric atony, anxiety disorder, ambulatory dysfunction presents with anemia. The patient was in [facility] from 03/14/2018 to 03/16/2018 for severe malnutrition and also hypoglycemia and hyperammonemia. Altered mental status was thought to be secondary to combination of hypoglycemia plus hepatic encephalopathy, improved with lactulose and [facility] discussed with Dr. Willingham at [facility] who is her primary group leader semiconductor testing and there is plan for outpatient endoscopic feeding tube placement. As per [facility] [facility] hepatology, prognosis is poor with combination of chronic graft rejection, portal hypertension, ascites and recommended Boost with meals for malnutrition. Then as per the patient, she had another episode of variceal bleeding and she went to [facility] and the bleeding was stopped. She was discharged and she had followup labs today and her hemoglobin was 5.7. Her PCP advised to get PRBC transfusion and she came to [facility]. In the ER, her hemoglobin was found to be 5.9. The patient was somewhat weak. ER physician talked to the on-call group leader semiconductor testing at the [facility] and was told no need for transfer at this time to give PRBCs. Her ammonia level is 124 here, but she is not encephalopathic and her ammonia level was at 170s recently at [facility]. Currently, denies any blood in the stools or black stools. No nausea, no vomiting. Currently, no headaches, no sore throat. Appetite is improving as per the patient. No chest pain, no shortness of breath, no cough, no fever, no chills. Normal bladder movements. No burning micturition. Currently resting comfortably and hemodynamically stable . As per [facility] advised if any liver parameter changes or anything changes, to call them back. ALLERGIES: SUCRALFATE. PAST MEDICAL HISTORY: As mentioned above. PAST SURGICAL HISTORY: Liver transplant at age of 9 months in 2006, colonoscopy with EGDs. MEDICATIONS: Currently, the patient is on lactulose 10 grams p.o. b.i.d., Ativan 0.5 mg solution prior to meal as needed for emesis or bedtime p.r.n., norethindrone 0.35 mg p.o. daily, Cymbalta 20 mg p.o. daily, omeprazole 40 mg p.o. b.i.d., Prograf 2 capsules in a.m. and 2 capsules in p.m., nortriptyline 25 mg p.o. at bedtime, levothyroxine 25 mg p.o. daily, Singulair 10 mg p.o. daily p.r.n., propranolol 20 mg p.o. b.i.d., dicyclomine 20 mg p.o. b.i.d., Claritin 10 mg p.o. daily p.r.n., Neutra-Phos 1 tablet twice daily for 3 days after each iron treatment, albuterol 2 puffs 4 times a day as needed, Ursodiol 300 mg p.o. b.i.d., CellCept 500 mg p.o. b.i.d. FAMILY HISTORY: No family history available. SOCIAL HISTORY: Single, lives in a foster home. No smoking, no alcohol, no drug use. REVIEW OF SYMPTOMS: As per HPI. Rest of the review of systems negative. PHYSICAL EXAMINATION: GENERAL: The patient is thin and weak, not in acute distress. VITAL SIGNS: Temperature 36.8, pulse 89, respiratory rate 20, blood pressure 113/75, oxygen 100% on room air. HEENT: Some pallor present, no icterus. Pupils equal, round, and reactive to light. NECK: No JVD, no neck masses. Supple. CARDIOVASCULAR: S1, S2 heard, regular rate and rhythm, no murmur, no gallop. RESPIRATORY SYSTEM: Normal AP diameter. No accessory muscle use. No wheezing, no crackles. ABDOMEN: Soft, bowel sounds present. Nontender. No distention. CENTRAL NERVOUS SYSTEM: Nonfocal. EXTREMITIES: No edema seen, no erythema seen. LABORATORY DATA: WBC 14, hemoglobin 5.9, hematocrit 19.6, platelets 224. PT 12.4, INR 1.2, APTT 42.2. Sodium 139, potassium 3.2, chloride 104, bicarbonate 21, BUN 16, creatinine 0.6, serum glucose 115, calcium 7.8, total bilirubin 1.8, AST 127, ALT 78, alkaline phosphatase 896, ammonia 129. ASSESSMENT AND PLAN: This is a 28-year-old female who presents with anemia. 1. Anemia, chronic GI bleed. She had multiple endoscopies done with no source of bleeding, but recently she had a variceal rupture and was in [facility]. She had a history of liver transplant at age of 10 months and 2006 and follows with hepatology at [facility]. She gets frequent PRBC transfusions. Hemoglobin is 5.9 on followup lab checks. The ER physician talked with doctor nonprofit manager at [facility] hepatology and advised for PRBCs and monitor. If anything changes, to call them back. We will give 2 units of PRBCs and follow the labs. Closely monitor in med/surg tele. 2. Congenital biliary atresia status post liver transplant at age 10 months and in 2006. Graft rejection and is on CellCept and tacrolimus. Follows with hepatology at [facility]. Continue same medications. Has appointment at [facility] on 04/12/2018.Elevated LFT chronic. follow repeat labs. 3. Hyperammonemia, recently she was in [facility] from 03/14/2018 to 03/16/2018 for hypoglycemia, hyperammonemia, and encephalopathy, and she was started on lactulose which she will continue. Ammonia levels seem to be at 129. Her ammonia was 174 at [facility],. Will follow repeat levels. Will continue her home lactulose and consult GI for any further recommendations. 4. History of hypothyroidism. Continue Synthroid. 5. History of severe malnutrition and hypoalbuminemia, on protein drinks, which she will continue. There is a plan for feeding tube placement as per records. 6. History of anemia and history of pancytopenia. Currently, her platelets and white counts are okay. Thought to be from bone marrow suppression from chronic immunosuppressants. 7. Esophageal varices, on propranolol. 8. Anxiety and depression, Cymbalta and Ativan p.r.n. 9. Gastroesophageal reflux disease, on PPI. 10. Deep venous thrombosis prophylaxis, sequential compression devices for now. DISPOSITION: Closely monitor in med/surg tele. Level 1 full code. MTDD
[2018-04-01] MEDS: NORTRIPTYLINE HCL 25 MG CAP PO SCH ×2 (01:06→20:55)
[2018-04-01] MEDS: PROPRANOLOL HCL 20 MG TAB PO SCH ×3 (01:07→20:55)
[2018-04-01] MEDS: LEVOTHYROXINE SODIUM 25 MCG TABLET PO SCH (06:26)
[2018-04-01] MEDS: DULOXETINE HCL 20 MG CAP PO SCH (07:50)
[2018-04-01] MEDS: FUROSEMIDE 20 MG TAB PO SCH (07:50)
[2018-04-01] MEDS: URSODIOL 300 MG CAP PO SCH ×2 (07:51→20:55)
[2018-04-01] MEDS: TACROLIMUS 1 MG CAP PO SCH ×2 (07:51→20:55)
[2018-04-01] MEDS: PANTOprazole 40 MG TAB PO SCH (07:51)
[2018-04-01] MEDS: MYCOPHENOLATE MOFETIL 250 MG CAP PO SCH ×2 (07:51→20:55)
[2018-04-01] MEDS: DICYCLOMINE HCL 20 MG TAB PO SCH ×2 (07:52→20:55)
[2018-04-01] MEDS: LACTULOSE SYRUP 20 GM/30 ML UDC PO SCH ×2 (07:52→20:54)
[2018-04-01 08:22] LABS: Hematocrit (blood only) 28.7 % (37-47); Hemoglobin 9.2 g/dL (12.0-16.0); Mean Corpuscular Hgb Conc 32.1 g/dL (32-36); Mean Corpuscular Volume 97.3 fL (80-100); Mean Platelet Volume 10.6 fL (7.4-10.4); Nucleated RBC # (auto) 0.07 K/uL (0-0); Nucleated RBC % (auto) 1.1 %; Platelet Count 134 K/uL (130-400); RDW Standard Deviation 82.9 fL (36.4-46.3); Red Blood Count 2.95 M/uL (4.2-5.4); White Blood Count 6.55 K/uL (4.8-10.8)
[2018-04-01 08:31] LABS: Anisocytosis Present; Basophils # (auto) 0.05 K/uL (0-0.2); Basophils % (auto) 0.8 %; Eosinophils # (auto) 0.24 K/uL (0-0.5); Eosinophils % (auto) 3.7 %; Immature Granulocytes # (auto) 0.02 K/uL (0.00-0.02); Immature Granulocytes % (auto) 0.3 %; Lymphocytes # (auto) 0.82 K/uL (1.2-3.4); Lymphocytes % (auto) 12.5 %; Monocytes # (auto) 0.24 K/uL (0.11-0.59); Monocytes % (auto) 3.7 %; Neutrophils # (auto) 5.18 K/uL (1.4-6.5); Polychromasia 2+
[2018-04-01 08:39] LABS: Alanine Aminotransferase 84 U/L (12-78); Albumin Level 2.2 gm/dl (3.4-5.0); Alkaline Phosphatase 883 U/L (45-117); Aspartate Aminotransferase 139 U/L (15-37); BUN Creatinine Ratio 27.6 (10-20); Bilirubin Direct 1.6 mg/dl (0-0.2); Bilirubin,Total 2.4 mg/dl (0.2-1); Blood Urea Nitrogen 14 mg/dl (7-18); Calcium 7.9 mg/dl (8.5-10.1); Carbon Dioxide 28 mmol/L (21-32); Chloride 109 mmol/L (98-107); Creatinine Clr Calc Pharmacy 94.2 ml/min; Est GFR (African American) > 150.0; Est GFR (Non-African American) 133.6; Glucose 89 mg/dl (70-99); Magnesium 2.1 mg/dl (1.8-2.4); Sodium 143 mmol/L (136-145); Total Protein 6.3 gm/dl (6.4-8.2)
--- NOTE | 2018-04-01 09:17 | History & Physical Report ---
Date of Service April 01, 2018 History of Present Illness Chief Complaint: Anemia, post liver transplant Primary Care Provider: Marlo Jerry MD 28 yo fm with a history of biliary atresia s/p liver transplant, complicated history and followed by [facility] hepatology's department. Admitted for anemia, no overt GI bleeding noted. has responded to transfusion overnite with improvement in her hgb. No bun rise. She is feeling better this morning but chronically weak. She is due to follow-up with [facility]. Allergies Allergy/AdvReac Type Severity Reaction Status Date / Time sucralfate Allergy Unknown Unknown Verified 03/31/18 16:52 Home Medications Home Medications Medication Instructions Recorded Confirmed Type albuterol sulfate [ProAir 2 inh INHALATION QID PRN 03/31/18 03/31/18 History RespiClick] dicyclomine 20 mg PO BID 03/31/18 03/31/18 History duloxetine 20 mg PO DAILY 03/31/18 03/31/18 History furosemide 20 mg PO DAILY 03/31/18 03/31/18 History lactulose 15 ml PO BID 03/31/18 03/31/18 History levothyroxine 25 mcg PO DAILY 03/31/18 03/31/18 History loratadine 10 mg PO DAILY PRN 03/31/18 03/31/18 History lorazepam [Ativan] 0.5 mg SUBLINGUAL BID PRN 03/31/18 03/31/18 History mycophenolate mofetil [CellCept] 500 mg PO BID 03/31/18 03/31/18 History norethindrone (contraceptive) 0.35 mg PO DAILY 03/31/18 03/31/18 History nortriptyline 25 mg PO HS 03/31/18 03/31/18 History omeprazole 40 mg PO DAILY 03/31/18 03/31/18 History propranolol 20 mg PO BID 03/31/18 03/31/18 History tacrolimus 2 mg PO Q12H 03/31/18 03/31/18 History ursodiol [Actigall] 300 mg PO BID 03/31/18 03/31/18 History Past Med/Surg History Medical History Abdominal pain Congenital biliary atresia GI bleed Hyperammonemia Pancytopenia Severe anemia Symptomatic anemia Surgical History H/O colonoscopy History of esophagogastroduodenoscopy (EGD) Liver transplant recipient x2 Social History Current Living Situation: Parent Other Information That Helps Us Care for You: No Feels Safe at Home: Yes Safety Concerns: Feels Safe At This Time Smoking Status: Never smoker Do You Dip or Chew Tobacco: No Second Hand Exposure: No Hx Alcohol Use: No Hx Substance Use: No Beliefs That Will Affect Care: None Preferred Language: Zimbabwean Communication Ability: Effective Pork Cutlet Maker Required: No Review of Systems All systems reviewed & are unremarkable except as noted in HPI & below Physical Exam 2 Vital Signs (Past 24 Hours): Last Vital Signs Temp 36.9 C 04/01/18 08:00 Pulse 79 04/01/18 09:06 Resp 18 04/01/18 08:00 BP 98/64 L 04/01/18 08:00 Pulse Ox 98 04/01/18 08:00 Physical Exam: Thin female in nad Eyes: PERRL, conjunctivae normal, anicteric sclerae Respiratory: normal respiratory effort, lungs clear to auscultation Cardiovascular: RRR, no murmur, no edema Gastrointestinal (Abdomen): Abdomen with scars from prior transplant Results & Data Laboratory Results Labs reviewed improvement in hgb Supervising Physician Co-Signing Physician Notes 28 yo fm with a history of biliary atresia s/p liver transplant, complicated other post transplant history as per medicine H and P, followed by [facility] hepatology Her anemia was asymptomatic on reivew of systems today and without overt signs of a GI bleed. Responded to transfusion overnite. Feeling fine this morning. Would check prograf level, abdominal ultrasound with doppler. She can likely be dc'd after these are done if normal and follow-up with [facility] hepatology.
[2018-04-01] MEDS ORDERED: SODIUM CHLORIDE 0.9% 500 ML IV SCH (13:30)
--- NOTE | 2018-04-01 15:16 | Hospitalist Progress Note ---
Date of Service April 01, 2018 Assessment & Plan (1) Severe anemia: She is a status post liver transplant x2, last one in 2006 She has had upper GI bleed in the past and required transfusion She was admitted with a hemoglobin of 5.9 without any acute bleeding Received 2 units of PRBC Hemoglobin this morning is more than 9 We will monitor while in the hospital (2) Hyperammonemia: She is noted to have higher ammonia level She has very drowsy yesterday and the level was 129.5 This morning she remains drowsy without any hepatic flap Family level has reduced to 94 We will monitor (3) Congenital biliary atresia: Status post liver transplant x2 for the same (4) H/O liver transplant: He is being followed by child care aide in [facility] She was seen in the clinic as an outpatient recently The case was discussed with on-call child care aide on admission And question of blood transfusion and keep regular follow-up on discharge Appreciate GI input and recommendation We will get Prograf level and hepatic ultrasound Hemoglobin remains normal she will be discharged tomorrow Subjective This is a 28-year-old female with past medical history significant for congenital biliary atresia, status post liver transplant, first one when she was 10 months old, second was in 2006, follows with hepatology at [place] admitted with weakness secondary to profound anemia. 04/01 Chief complaint history of generalized weakness but has been feeling better since admission Status post 2 unit of blood transfusion Denies any significant symptoms Physical Exam 2 Vital Signs (Past 24 Hours): Last Vital Signs Temp 36.8 C 04/01/18 11:00 Pulse 85 04/01/18 11:00 Resp 18 04/01/18 11:00 BP 109/75 04/01/18 11:00 Pulse Ox 96 04/01/18 11:00 Physical Exam: No acute distress in bed Constitutional: WD/WN, vitals as above + ill appearing and + thin Eyes: PERRL, conjunctivae normal, anicteric sclerae ENMT: external ear and nose normal, oropharynx normal Neck: trachea midline, no thyromegaly Respiratory: normal respiratory effort, lungs clear to auscultation Cardiovascular: Rate/Rhythm: regular rate and regular rhythm Heart Sounds: normal S1 and normal S2 Gastrointestinal (Abdomen): Inspection/Auscultation: + abdomen distended ( Minimally distended), normal bowel sounds and + abdominal surgical incision Percussion/Palpation: + abdomen tender (Right upper quadrant) and + hepatomegaly Musculoskeletal: No acute arthritis Neurologic: Alert and awake. Very drowsy but does not feel that this is worse. No hepatic flap Results & Data Laboratory Results Short CBC 03/31/18 04/01/18 Range/Units 16:48 08:01 WBC 14.25 H 6.55 (4.8-10.8) K/uL Hgb 5.9 L* 9.2 L D (12.0-16.0) g/dL Hct 19.6 L* 28.7 L (37-47) % Plt Count 224 134 (130-400) K/uL BMP 03/31/18 04/01/18 16:48 08:01 Sodium 139 143 Potassium 3.2 L 4.0 D Chloride 104 109 H Carbon Dioxide 31 28 BUN 16 14 Creatinine 0.61 0.50 L Glucose 115 H 89 Calcium 7.8 L 7.9 L Liver Function 03/31/18 04/01/18 Range/Units 16:48 08:01 Total Bilirubin 1.8 H 2.4 H (0.2-1) mg/dl Direct Bilirubin 1.6 H (0-0.2) mg/dl AST 127 H 139 H (15-37) U/L ALT 78 84 H (12-78) U/L Alkaline Phosphatase 896 H 883 H (45-117) U/L Albumin 2.4 L 2.2 L (3.4-5.0) gm/dl Medications Administered Current Inpatient Medications Acetaminophen (Tylenol) 650 mg PO Q6H PRN PRN Reason: Pain or Fever Stop: 04/30/18 22:13 Albuterol (Ventolin Hfa) 2 puffs INH QID PRN PRN Reason: Wheezing Dicyclomine HCl (Bentyl) 20 mg PO BID KETAN Stop: 04/30/18 22:13 Last Admin: 04/01/18 07:52 Dose: 20 mg Duloxetine HCl (Cymbalta) 20 mg PO DAILY [facility] Stop: 05/01/18 08:59 Last Admin: 04/01/18 07:50 Dose: 20 mg Furosemide (Lasix) 20 mg PO DAILY [facility] Stop: 05/01/18 08:59 Last Admin: 04/01/18 07:50 Dose: 20 mg Sodium Chloride (Nss 250ml) 250 mls @ 15 mls/hr IV .[id number] PRN PRN Reason: For Transfusion Stop: 04/30/18 22:13 Sodium Chloride (Nss) 500 mls @ 80 mls/hr IV .Q6H15M [facility] Stop: 04/01/18 19:44 Last Admin: 04/01/18 14:19 Dose: 80 mls/hr Lactulose (Chronulac) 10 gm PO BID [facility] Stop: 04/30/18 22:13 Last Admin: 04/01/18 07:52 Dose: 10 gm Levothyroxine Sodium (Synthroid) 25 mcg PO DAILYBB [facility] Stop: 05/01/18 06:29 Last Admin: 04/01/18 06:26 Dose: 25 mcg Loratadine (Claritin) 10 mg PO DAILY PRN PRN Reason: Allergic Symptoms Stop: 04/30/18 22:13 Lorazepam (Ativan) 0.5 mg SL BID PRN PRN Reason: Nausea Last Admin: 04/01/18 01:09 Dose: 0.5 mg Miscellaneous (Order Awaiting Action) 1 ea N/A QS [facility] Stop: 05/01/18 00:00 Last Admin: 04/01/18 07:50 Dose: Not Given Mycophenolate Mofetil (Cellcept) 500 mg PO BID [facility] Stop: 04/30/18 22:13 Last Admin: 04/01/18 07:51 Dose: 500 mg Nitroglycerin (Nitrostat) 0.4 mg SL UD PRN PRN Reason: Chest Pain Stop: 04/30/18 22:13 Nortriptyline HCl (Pamelor) 25 mg PO HS [facility] Stop: 05/01/18 20:59 Last Admin: 04/01/18 01:06 Dose: 25 mg Ondansetron HCl (Zofran) 4 mg IV Q6H PRN PRN Reason: Nausea Stop: 04/30/18 22:13 Pantoprazole Sodium (Protonix) 40 mg PO DAILY [facility] Stop: 05/01/18 08:59 Last Admin: 04/01/18 07:51 Dose: 40 mg Propranolol HCl (Inderal) 20 mg PO BID [facility] Stop: 05/01/18 00:44 Last Admin: 04/01/18 07:50 Dose: 20 mg Tacrolimus (Prograf) 2 mg PO Q12 [facility] Stop: 04/30/18 22:13 Last Admin: 04/01/18 07:51 Dose: 2 mg Ursodiol (Actigall) 300 mg PO BID [facility] Stop: 04/30/18 22:13 Last Admin: 04/01/18 07:51 Dose: 300 mg
[2018-04-02] MEDS: HEPARIN 100 UNIT/ML 5ML FLUSH FLUSH PRN ×2 (06:20→13:34)
[2018-04-02] MEDS: LEVOTHYROXINE SODIUM 25 MCG TABLET PO SCH (06:20)
[2018-04-02 07:16] LABS: Basophils # (auto) 0.03 K/uL (0-0.2); Basophils % (auto) 0.7 %; Eosinophils # (auto) 0.21 K/uL (0-0.5); Eosinophils % (auto) 4.8 %; Hematocrit (blood only) 30.9 % (37-47); Hemoglobin 9.5 g/dL (12.0-16.0); Immature Granulocytes # (auto) 0.01 K/uL (0.00-0.02); Immature Granulocytes % (auto) 0.2 %; Lymphocytes # (auto) 0.57 K/uL (1.2-3.4); Lymphocytes % (auto) 13.1 %; Mean Corpuscular Hgb Conc 30.7 g/dL (32-36); Mean Corpuscular Volume 98.1 fL (80-100); Mean Platelet Volume 10.5 fL (7.4-10.4); Monocytes # (auto) 0.17 K/uL (0.11-0.59); Monocytes % (auto) 3.9 %; Neutrophils # (auto) 3.35 K/uL (1.4-6.5); Neutrophils % (auto) 77.3 %; Platelet Count 125 K/uL (130-400); RDW Coefficient of Variation 26.4 % (11.5-14.5); RDW Standard Deviation 86.1 fL (36.4-46.3); Red Blood Count 3.15 M/uL (4.2-5.4); White Blood Count 4.34 K/uL (4.8-10.8)
[2018-04-02 07:49] LABS: Anisocytosis Present; Polychromasia 1+; Tear Drop Cells 1+
[2018-04-02 07:51] LABS: Albumin Level 2.3 gm/dl (3.4-5.0); BUN Creatinine Ratio 21.1 (10-20); Calcium 7.8 mg/dl (8.5-10.1); Creatinine Clr Calc Pharmacy 79.6 ml/min; Est GFR (African American) 145.8; Est GFR (Non-African American) 125.8; Magnesium 1.9 mg/dl (1.8-2.4); Potassium 4.1 mmol/L (3.5-5.1)
[2018-04-02 07:54] LABS: Albumin Globulin Ratio 0.5 (0.9-2); Bilirubin,Total 2.7 mg/dl (0.2-1); Globulin 4.3 gm/dl (2.5-4.0); Phosphorus 3.2 mg/dl (2.5-4.9); Total Protein 6.6 gm/dl (6.4-8.2)
--- NOTE | 2018-04-02 07:58 | Ultrasound Report ---
US abdomen limited HISTORY: 28 years-old Female S/P Liver Transplant follow-up study in a patient with history of prior liver transplant COMPARISON: CT abdomen 06/10/2016, abdominal ultrasound 04/22/2016 TECHNIQUE: Multiple real-time sonographic images of the abdominal right upper quadrant were obtained assessing grayscale appearance and color flow FINDINGS: Heterogeneous appearance of the hepatic parenchyma. No intrahepatic biliary ductal dilation. No focal hepatic mass lesion or marginal nodularity to suggest cirrhosis. Flow is noted within the portal vei n. Gallbladder is absent. Right kidney, pancreas and common bile duct are not diagnostically visualiz ed. A large amount of obscuring bowel gas is noted which limits the study. Small volume of abdominal ascites is noted. IMPRESSION: 1. Nonspecific heterogeneous appearance of the hepatic parenchyma. Correlate with liver function test s. 2. No biliary ductal dilation. 3. Small volume of abdominal ascites. The above report was generated using voice recognition software. It may contain grammatical, syntax o r spelling errors. Electronically signed by: Noe Escalera M.D. 04/02/2018 7:56 AM
--- NOTE | 2018-04-02 08:33 | Gastroenterology Progress Note ---
Date of Service April 02, 2018 Assessment & Plan (1) Congenital biliary atresia: Present on Admission?: Yes (2) H/O liver transplant: Present on Admission?: Yes (3) Anemia: Ms. Mathew is a 28 yr old female post liver transplant on prograf/cellcept who was admitted with acute symptomatic anemia w/o gross GI bleeding and is stable post transfusion of 2 units of RBCs with Hb now 9.6. No endoscopy or other GI procedures planned at this time. Prograf level should be followed but pt does not have to remain admitted to receive this result. Pt will f/u with [facility] hepatology after DC. Present on Admission?: Yes Supervising Physician Co-Signing Physician Notes I have seen and examined the patient. She remains stable regarding her symptoms of no melena or overt GI bleeding. Her hgb has remained fine. She feels fine this morning and wants to go home. Agree with further plan of care as documented in Flor's assessment/plan. Subjective Ms. Mallory mathew is a 28 yr old female with hx of biliary atresia s/p liver transplant, followed by [facility] hepatology. Admitted for anemia, no overt GI bleeding. Hb on arrival 5.9 + 2 U RBCs --> 9.2 yesterday and 9.5 today. Prograf level is pending. This morning, pt denies any gross GI bleeding, no abdominal pain, no nausea/ vomiting. Eating a regular diet. Constitutional: as per Subjective / HPI, + fatigue (much improved) and + weakness (much improved); no fever, no chills, no sweats and no body aches Respiratory: no cough, no chest congestion, no dyspnea and no dyspnea on exertion Cardiovascular: no chest pain, no dyspnea and no edema Gastrointestinal: no abdominal pain, no belching, no early satiety, no nausea and no vomiting Genitourinary (Female): no dysuria and no hematuria Musculoskeletal: no joint pain and no stiffness Integumentary: no rash Neurologic: no unsteadiness and no tremor(s) Psychiatric: no depression, no irritability, no anxiety and no confusion Physical Exam 2 Vital Signs (Past 24 Hours): Last Vital Signs Temp 36.5 C 04/02/18 08:16 Pulse 91 H 04/02/18 08:16 Resp 20 04/02/18 08:16 BP 122/86 04/02/18 08:16 Pulse Ox 100 04/02/18 08:16 Constitutional: + thin and healthy appearing; no acute distress Eyes: PERRL, conjunctivae normal, anicteric sclerae ENMT: external ear and nose normal, oropharynx normal Neck: trachea midline, no thyromegaly Respiratory: normal respiratory effort, lungs clear to auscultation Cardiovascular: RRR, no murmur, no edema Gastrointestinal (Abdomen): normal bowel sounds, soft, nontender, no hepatosplenomegaly Skin: no rashes, warm and dry Neurologic: PERRL, EOMI, accommodation nl, no face palsy, no dysarthria Psychiatric: A+Ox3, euthymic affect Results & Data Laboratory Results Hb 9.5, Hct 30.9, BUN 13, Cr 0.6. Diagnostic Findings Liver US: Heterogeneous appearance of the hepatic parenchyma. No intrahepatic biliary ductal dilation. No focal hepatic mass lesion or marginal nodularity to suggest cirrhosis. Flow is noted within the portal vein. Gallbladder is absent. CBD not well visualized.
[2018-04-02] MEDS: BCP'S~ORDER AWAITING ACTION SCH ×2 (08:41→14:56)
[2018-04-02] MEDS: TACROLIMUS 1 MG CAP PO SCH (08:42)
[2018-04-02] MEDS: FUROSEMIDE 20 MG TAB PO SCH (08:42)
[2018-04-02] MEDS: PROPRANOLOL HCL 20 MG TAB PO SCH (08:42)
[2018-04-02] MEDS: DICYCLOMINE HCL 20 MG TAB PO SCH (08:43)
[2018-04-02] MEDS: DULOXETINE HCL 20 MG CAP PO SCH (08:43)
[2018-04-02] MEDS: MYCOPHENOLATE MOFETIL 250 MG CAP PO SCH (08:43)
[2018-04-02] MEDS: LACTULOSE SYRUP 20 GM/30 ML UDC PO SCH (08:43)
[2018-04-02] MEDS: URSODIOL 300 MG CAP PO SCH (08:43)
[2018-04-02] MEDS: PANTOprazole 40 MG TAB PO SCH (08:43)
--- NOTE | 2018-04-02 14:15 | Hospitalist Progress Note ---
Date of Service April 02, 2018 Assessment & Plan (1) Severe anemia: She is a status post liver transplant x2, last one in 2006 She has had upper GI bleed in the past and required transfusion She was admitted with a hemoglobin of 5.9 without any acute bleeding Received 2 units of PRBC Hemoglobin this morning is more than 9 We will monitor while in the hospital Hemoglobin remains stable at 9.5 (2) Hyperammonemia: She is noted to have higher ammonia level She has very drowsy yesterday and the level was 129.5 This morning she remains drowsy without any hepatic flap Family level has reduced to 94 We will monitor Ammonia level has been decreased to 48.5 (3) Congenital biliary atresia: Status post liver transplant x2 for the same (4) H/O liver transplant: He is being followed by swing grinder in [facility] She was seen in the clinic as an outpatient recently The case was discussed with on-call swing grinder on admission And question of blood transfusion and keep regular follow-up on discharge Appreciate GI input and recommendation We will get Prograf level and hepatic ultrasound Hemoglobin remains normal she will be discharged tomorrow She will be discharged today Subjective This is a 28-year-old female with past medical history significant for congenital biliary atresia, status post liver transplant, first one when she was 10 months old, second was in 2006, follows with hepatology at [place] admitted with weakness secondary to profound anemia. 04/01 Chief complaint history of generalized weakness but has been feeling better since admission Status post 2 unit of blood transfusion Denies any significant symptoms 04/02 Patient was seen and examined in medical telemetry unit She has been feeling a lot better Less drowsy today and without any other significant symptoms Physical Exam 2 Vital Signs (Past 24 Hours): Last Vital Signs Temp 37.2 C 04/02/18 13:09 Pulse 86 04/02/18 13:09 Resp 18 04/02/18 13:09 BP 110/77 04/02/18 13:09 Pulse Ox 97 04/02/18 13:09 Constitutional: WD/WN, vitals as above + ill appearing and + thin Eyes: PERRL, conjunctivae normal, anicteric sclerae ENMT: external ear and nose normal, oropharynx normal Neck: trachea midline, no thyromegaly Respiratory: normal respiratory effort, lungs clear to auscultation Cardiovascular: Rate/Rhythm: regular rate and regular rhythm Heart Sounds: normal S1 and normal S2 Gastrointestinal (Abdomen): Inspection/Auscultation: + abdomen distended ( Minimally distended), normal bowel sounds and + abdominal surgical incision Percussion/Palpation: + abdomen tender (Right upper quadrant) and + hepatomegaly Musculoskeletal: No acute arthritis Neurologic: Alert, awake and oriented x3. Generally very weak and lethargic
--- NOTE | 2018-04-03 08:52 | Discharge Summary ---
Date of Service April 03, 2018 Admission HPI Per Admitting Provider 28 yo fm with a history of biliary atresia s/p liver transplant, complicated history and followed by [facility] hepatology's department. Admitted for anemia, no overt GI bleeding noted. has responded to transfusion overnite with improvement in her hgb. No bun rise. She is feeling better this morning but chronically weak. She is due to follow-up with [facility]. Admission Exam Per Admitting Provider GENERAL: The patient is thin and weak, not in acute distress. VITAL SIGNS: Temperature 36.8, pulse 89, respiratory rate 20, blood pressure 113/75, oxygen 100% on room air. HEENT: Some pallor present, no icterus. Pupils equal, round, and reactive to light. NECK: No JVD, no neck masses. Supple. CARDIOVASCULAR: S1, S2 heard, regular rate and rhythm, no murmur, no gallop. RESPIRATORY SYSTEM: Normal AP diameter. No accessory muscle use. No wheezing, no crackles. ABDOMEN: Soft, bowel sounds present. Nontender. No distention. CENTRAL NERVOUS SYSTEM: Nonfocal. EXTREMITIES: No edema seen, no erythema seen. 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 Discharge Exam Constitutional WD/WN, vitals as above + ill appearing and + thin Eyes PERRL, conjunctivae normal, anicteric sclerae ENMT external ear and nose normal, oropharynx normal Neck trachea midline, no thyromegaly Respiratory normal respiratory effort, lungs clear to auscultation Cardiovascular Rate/Rhythm: regular rate and regular rhythm Heart Sounds: normal S1 and normal S2 Gastrointestinal (Abdomen) Inspection/Auscultation: + abdomen distended (Minimally distended), normal bowel sounds and + abdominal surgical incision Percussion/Palpation: + abdomen tender (Right upper quadrant) and + hepatomegaly Discharge Data Allergies Allergy/AdvReac Type Severity Reaction Status Date / Time sucralfate Allergy Unknown Unknown Verified 03/31/18 16:52 Consultations 03/31/18 19:51 ED Decision to Admit Stat 04/01/18 08:00 Consult Gastroenterology Routine Ordered Studies 04/02/18 abdomen limited Routine Hospital Course (1) Severe anemia: She is a status post liver transplant x2, last one in 2006 She has had upper GI bleed in the past and required transfusion She was admitted with a hemoglobin of 5.9 without any acute bleeding Received 2 units of PRBC Hemoglobin this morning is more than 9 We will monitor while in the hospital Hemoglobin remains stable at 9.5 (2) Hyperammonemia: She is noted to have higher ammonia level She has very drowsy yesterday and the level was 129.5 This morning she remains drowsy without any hepatic flap Family level has reduced to 94 We will monitor Ammonia level has been decreased to 48.5 (3) Congenital biliary atresia: Status post liver transplant x2 for the same (4) H/O liver transplant: He is being followed by clam bed laborer in [facility] She was seen in the clinic as an outpatient recently The case was discussed with on-call clam bed laborer on admission And question of blood transfusion and keep regular follow-up on discharge Appreciate GI input and recommendation We will get Prograf level and hepatic ultrasound Hemoglobin remains normal she will be discharged tomorrow She will be discharged today Total Time Total Time Spent Total Time Spent (In Minutes): 35 minutes Total Time Includes: Examination of the Patient, Discharge Planning, Medication Reconciliation and Communication With Other Providers Discharge Plan Discharge Items Patient Disposition: Home - Self-Care Reason For Visit: ANEMIA Discharge Diagnosis: Symptomatic anemia status post 2 unit of blood transfusion , no active bleeding, 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 Condition: Fair Discharge Goals: Decrease discomfort, Increase independence and Improve nutritional status Activity: Resume your previous activity Non-emergency contact: Primary Care Provider Call non-emergency contact if: you have any medication questions and your symptoms worsen Follow-up/Referrals: Marlo Jerry MD [Primary Care Provider] - 04/04/18 10:25 am (Please keep appointment with your clam bed laborer at [facility]) Diet: Regular and Low Sodium (2gm) Fluids: 1500ml (6 cups) Addtl Provider Instructions: Please take precaution to avoid fall. Prescriptions: Continue dicyclomine 20 mg tablet 20 mg PO BID RF: 0 furosemide 20 mg tablet 20 mg PO DAILY RF: 0 norethindrone (contraceptive) 0.35 mg tablet 0.35 mg PO DAILY RF: 0 propranolol 20 mg tablet 20 mg PO BID RF: 0 lactulose 10 gram/15 mL solution 15 ml PO BID RF: 0 omeprazole 40 mg capsule,delayed release(DR/EC) 40 mg PO DAILY RF: 0 duloxetine 20 mg capsule,delayed release(DR/EC) 20 mg PO DAILY RF: 0 mycophenolate mofetil [CellCept] 500 mg Tablet 500 mg PO BID RF: 0 ursodiol [Actigall] 300 mg Capsule 300 mg PO BID RF: 0 tacrolimus 1 mg Capsule 2 mg PO Q12H RF: 0 loratadine 10 mg Tablet 10 mg PO DAILY PRN (Reason: Allergy Symptoms) RF: 0 albuterol sulfate [ProAir RespiClick] 90 mcg/actuation Aerosol Powdr Breath Activated 2 inh INHALATION QID PRN (Reason: Wheezing) RF: 0 lorazepam [Ativan] 2 mg/mL Solution 0.5 mg SUBLINGUAL BID PRN (Reason: Nausea) RF: 0 levothyroxine 25 mcg Capsule 25 mcg PO DAILY RF: 0 nortriptyline 25 mg 25 mg PO HS RF: 0 Stand-Alone Forms: [facility] Discharge Orders: Discharge Order (Routine); Ordered 04/02/18 Ordered By: Shahid Palmer Admission Data Admit Date/Time: 03/31/18 20:28 Attending Provider: Shahid Palmer Admit Provider: Luke Lynn Primary Care Provider: Marlo Jerry I. Other Providers: Luke Lynn ; Flor Frazier ; Nicola Guzman ; Jeanne Donovan ; Les Madera ; Amanda Ga ; Edith Rivero ; Moriah Amezcua ; Lew Clay ; Jairo Gilmore ; Shilpa Woodard ; Rosalina Hernandez ; Thelma Preston ; Fatou Medina ; Joni Coello Service: Telemetry Medical Other Interventions: Discharge Summary Assessment (RN) Last Done: 04/02/18 14:27 DC Date/Time DO NOT enter until pt leaves facility: 04/02/18 16:00
== END 2018-04-02 16:00 | disposition home or self-care (01) | DRG 811 ==
LOC: ED 16:05 → 2N 20:28

== ENCOUNTER 2018-08-10 17:35 | Inpatient (IN) ==
--- OUTSIDE RECORDS SUMMARY | 2018-08-10 17:39 | External Medical Summary | Continuity of Care Document ---
:1990 Author Name Yoli Vicente, Provider Address Unavailable Unavailable , Care Team Providers Name Role Phone Jose Vicente, Lew Unavailable [email or web address]. Unavailable [email or web address] Unavailable [email or web address] JEFF, I Unavailable Unavailable Unavailable Unavailable Unavailable Assessments Assessed Problems:AsthmaAdverse food reactionEpistaxis Problems Adverse food reaction (995.7) (T78.1XXA) Asthma (493.90) (J45.909) Epistaxis (784.7) (R04.0) Acute allergic rhinitis (477.9) (J30.9) Allergic rhinitis (477.9) (J30.9) Extrinsic asthma (493.00) (J45.909) Immunodeficiency (279.3) (D84.9) Allergic urticaria (708.0) (L50.0) Itching (698.9) (L29.9) Allergic conjunctivitis (372.14) (H10.10) Cough (786.2) (R05) Palpitations (785.1) (R00.2) 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) Abnormal CT scan (793.99) (R93.89) Chest discomfort (786.59) (R07.89) Ovarian cyst (620.2) (N83.209) Female pelvic pain (625.9) (R10.2) Wheezing (786.07) (R06.2) Anemia (285.9) (D64.9) Inflammation of hair follicles (680.9) (L73.9) Abnormal menses (626.9) (N92.6) Cyst of skin (706.2) (L72.9) Corneal scar (371.00) (H17.9) Hypertension (401.9) (I10) Abdominal pain (789.00) (R10.9) Contact dermatitis and other eczema (692.9) (L25.9) Allergies and Adverse Reactions Carafate (Allergy) Medications Ventolin HFA 108 (90 Base) MCG/ACT Inhal ation Aerosol Solution; INHALE 2 PUFFS EVERY 4 HOURS NEEDED Start: 14-Jan-2015 Quantity: 1 18 GM Inhaler Refills: 5 Bentyl 10 MG CAPS; TAKE 1 CAPSULE 3 TIMES DAILY. Start: 14-Jan-2015 Refills: 0 Ursodiol 300 MG Oral Capsule; TAKE 1 CAPSULE 2 TIMES DAILY. Quantity: 60 Refills: 5 Prograf 1 MG Oral Capsule; TAKE 3 CAPSULE in AM and 3 in PM Quantity: 180 Refills: 5 PriLOSEC 20 MG CPDR; Take 1 tablet BID Refills: 0 CellCept 250 MG Oral Capsule; TAKE 2 CAPSULE AM and 1 PM Refills: 0 Montelukast Sodium 10 MG Oral Tablet; TAKE 1 TABLET EV Cinthia Rhodes Start: 14-Aug-2017 Quantity: 30 Refills: 11 Breo Ellipta 100-25 MCG/INH Inhalation A erosol Powder Breath Activated; INHALE 1 PUFFS Daily Cinthia Garcia Start: 11-Jul-2017 Quantity: 2 28 Inhaler Pack Refills: 5 Flovent HFA 220 MCG/ACT Inhalation Aeros ol; USE 1 PUFF TWICE DAILY.RINSE MOUTH AFTER USE. TAMICA Mon Start: 30-Jul-2016 Quantity: 1 12 GM Inhaler Refills: 5 predniSONE 10 MG Oral Tablet; 4 tablets daily for 2 days, 3 tablets daily for 2 days, 2 tablets daily for 2 days, one tablet daily for 2 days, then discontinue. Cinthia Garcia Start: 11-Jul-2017 Quantity: 20 Refills: 0 Ipratropium-Albuterol 0.5-2.5 (3) MG/3ML Inhalation Solution; USE ONE VIAL IN NEBULIZER EVERY 4 TO 6 HOURS NEEDED TAMICA Mon Start: 15-Jan-20 15 Quantity: 6 30 x 3 ML Plas Cont Refills: 5 Procedures History of Liver Transplant Status: Comp leted Immunizations Immunizations not documented Family History Child Adopted (V68.89) (Z02.82) Status: Active Social History - Smoking Status Never smoker Interventions Medication ChangesMontelukast Sodium 10 MG Oral Tablet - StartDiscussion/Summary Impression: 27-year-old female with allergic rhinitis both seasonal and perennial and asthma. She also is having recurrent epistaxis due to nasal septal excoriation bilaterally. Plan: The patient continue to avoid eggs. Dust mite precautions including mattress and pillow covers from [place] allergy have been reviewed with the patient. Resume use of Claritin. Use [id number] Vaseline or other moisturizing agent on her nasal septum. If no improvement Cortisporin ointmenttopically to the nasal septum for epistaxis. Trial of Singulair 10 milligrams a day for her allergies and asthma. No allergy desensitization until other measures have been tried. If nasal symptoms continue, consider generic Astepro nasal spray 2 puffs in each nostril at bedtime. See me as needed for fo llow-up. Continue follow-up with Dr. Garcia Plan of Treatment Planned Observations Planned Goals not documented Results No Known Results Results not documented Encounters Appointment; [facility] Allergy, Testing Room 14-Aug-2017 14:00 Encounter Diagnosis: Problem not documented Appointment; Lew Garcia M.D. 14-Aug-2017 13:30 Encounter Diagnosis: Problem not documented Appointment; Vin Shabazz M.D. 02-Aug-2017 10:00 Encounter Diagnosis: Problem not documented Appointment; Lew Garcia M.D. 11-Jul-2017 11:45 Encounter Diagnosis: Problem not documented Appointment; Freddie Melendez M.D. 10-Mar-2017 11:45 Encounter Diagnosis: Problem not documented Appointment; Lexis Mon PA-C 10-Jan-2017 13:00 Encounter Diagnosis: Problem not documented Appointment; Vin Shabazz M.D. 14-Aug-2017 15:00 Encounter Diagnosis: Problem not documented
[2018-08-10] MEDS ORDERED: SODIUM CHLORIDE 0.9% 250 ML IV PRN ×2 (18:49→19:48)
[2018-08-10] MEDS ORDERED: SODIUM CHLORIDE 0.9% 1000ML 500 ML IV ONE (18:55)
--- NOTE | 2018-08-10 19:20 | XRay Report ---
XR chest 1V portable HISTORY: weakness COMPARISON: Chest 04/22/2016. FINDINGS: Right Port-A-Cath terminates at the distal SVC. Slightly rotated study. No pleural effusion s. No pneumothorax. The lungs are clear. IMPRESSION: No acute process. Electronically signed by: Rian Vinson M.D. 08/10/2018 7:19 PM
[2018-08-10 19:35] LABS: Hematocrit (blood only) 21.7 % (37-47); Hemoglobin 6.9 g/dL (12.0-16.0); Mean Corpuscular Hgb Conc 31.8 g/dL (32-36); Mean Corpuscular Volume 94.8 fL (80-100); Mean Platelet Volume 11.2 fL (7.4-10.4); Platelet Count 166 K/uL (130-400); RDW Coefficient of Variation 18.8 % (11.5-14.5); RDW Standard Deviation 55.2 fL (36.4-46.3); Red Blood Count 2.29 M/uL (4.2-5.4); White Blood Count 10.56 K/uL (4.8-10.8)
[2018-08-10 19:42] LABS: INR 1.2 (0.9-1.1); Partial Thromboplastin Ratio 1.1; Partial Thromboplastin Time 29.3 Seconds (21.0-31.0); Prothrombin Time 12.6 Seconds (9.0-12.0)
[2018-08-10] MEDS ORDERED: DiphenhydrAMINE HCL 50 MG/ML VIAL IV STA (19:52)
[2018-08-10 19:53] LABS: Basophils # (auto) 0.06 K/uL (0-0.2); Basophils % (auto) 0.6 %; Eosinophils # (auto) 0.44 K/uL (0-0.5); Eosinophils % (auto) 4.2 %; Hypochromasia Present; Immature Granulocytes # (auto) 0.04 K/uL (0.00-0.02); Immature Granulocytes % (auto) 0.4 %; Lymphocytes # (auto) 1.22 K/uL (1.2-3.4); Lymphocytes % (auto) 11.6 %; Monocytes # (auto) 0.53 K/uL (0.11-0.59); Neutrophils # (auto) 8.27 K/uL (1.4-6.5); Neutrophils % (auto) 78.2 %; Polychromasia 1+
[2018-08-10 19:54] LABS: Alanine Aminotransferase 105 U/L (12-78); Albumin Level 2.2 gm/dl (3.4-5.0); Aspartate Aminotransferase 111 U/L (15-37); BUN Creatinine Ratio 25.6 (10-20); Blood Urea Nitrogen 12 mg/dl (7-18); Calcium 8.3 mg/dl (8.5-10.1); Carbon Dioxide 32 mmol/L (21-32); Chloride 101 mmol/L (98-107); Creatinine Clr Calc Pharmacy 95.4 ml/min; Est GFR (African American) > 150.0; Est GFR (Non-African American) 137.3; Glucose 109 mg/dl (70-99); Magnesium 2.1 mg/dl (1.8-2.4); Potassium 2.8 mmol/L (3.5-5.1); Sodium 137 mmol/L (136-145)
[2018-08-10] MEDS ORDERED: POTASSIUM CHLORIDE 20 MEQ TABCR PO STA (20:06)
[2018-08-10 20:08] LABS: Albumin Globulin Ratio 0.4 (0.9-2); Alkaline Phosphatase 1097 U/L (45-117); Bilirubin,Total 2.3 mg/dl (0.2-1); Ferritin 260.2 ng/ml (8-388); Globulin 5.8 gm/dl (2.5-4.0); Iron 43 mcg/dl (35-150)
[2018-08-10] MEDS ORDERED: LACTULOSE SYRUP 20 GM/30 ML UDC PO STA (20:09)
--- NOTE | 2018-08-10 23:03 | Emergency Department Note ---
Entered by Conchis Montana acting as a scribe for History of Present Illness General Chief complaint: Bleeding Stated complaint: EXTREMELY FATIGUE AND BLEEDING Time Seen by Provider: 08/10/18 18:47 Source: patient and family (father) History of Present Illness Onset (ago): hour(s) 3 Severity: similar to prior episodes Pain Consistency: + other (episode ) Maximum Pain Intensity: 2 Quality: + other (anemia) Associated symptoms: + confusion and + other (positive black tarry stools; positive slow to respond; negative vomiting blood) The patient is a 28 year old female who presents to the Emergency Room with complaints of an episode of anemia that began 3 days prior to arrival. Per the patient's father, the patient has a history of a chronic GI bleeding and her hemoglobin is generally between 7-9. The patient's father states that 3 days ago the patient had blood work drawn which showed the patient's hemoglobin to be 7. 1. The patient's father states that over the past several weeks the patient has been more confused and slow to respond. The patient states that she has had black and tarry stools recently. She denies vomiting up blood. The patient's father states that the patient has lost about 40 pounds over the past few years. Per the patient's father, the patient has a history of gastric varices that contribute to her bleeding. The patient has had 2 liver transplants. Home Medications Home Medications Medication Instructions Recorded Confirmed Type Boost Breeze Nutritional 1 ea PO QID 08/10/18 08/10/18 History albuterol sulfate [ProAir HFA] 2 puff INHALATION QID PRN 08/10/18 08/10/18 History cetirizine 10 mg PO DAILY PRN 08/10/18 08/10/18 History dicyclomine 20 mg PO BID 08/10/18 08/10/18 History duloxetine [Cymbalta] 20 mg PO DAILY 08/10/18 08/10/18 History levothyroxine 25 mcg PO DAILY 08/10/18 08/10/18 History montelukast [Singulair] 10 mg PO DAILY PRN 08/10/18 08/10/18 History mycophenolate mofetil [CellCept] 500 mg PO BID 08/10/18 08/10/18 History nortriptyline [Pamelor] 25 - 50 mg PO HS 08/10/18 08/10/18 History tacrolimus [Prograf] 2 mg PO AMPM 08/10/18 08/10/18 History ursodiol [Actigall] 300 mg PO BID 08/10/18 08/10/18 History propranolol 20 mg PO BID 7 Days #14 tab 08/11/18 Rx Allergies Allergy/AdvReac Type Severity Reaction Status Date / Time sucralfate Allergy Unknown Unknown Verified 08/10/18 18:57 Past Med/Surg History Medical History Abdominal pain Congenital biliary atresia GI bleed Hyperammonemia Pancytopenia Severe anemia Symptomatic anemia Surgical History H/O colonoscopy History of esophagogastroduodenoscopy (EGD) Liver transplant recipient x2 Social History Preferred Language: Korean Communication Ability: Effective 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 and A total of 10 systems reviewed and were otherwise negative Physical Exam Vital Signs Vital Signs - 24 hr 08/10/18 18:17 08/10/18 19:41 08/10/18 19:42 Temperature 36.8 C Temperature Source Oral Sepsis Recent Fever Within 48 Hours No Sepsis New/Unexplained Change in Mental Status No Sepsis Action Taken by Nursing No Action Required Pulse Rate 81 75 Pulse Rate [Right Finger] Pulse Rate from SpO2 Sensor Pulse Rhythm Regular Pulse Rhythm [Right Finger] Pulse Strength Normal Pulse Strength [Right Finger] Respiratory Rate 18 18 Respiratory Effort / Characteristics Non-Labored Spontaneous Respiratory Depth Normal Respiratory Pattern Regular Blood Pressure 104/71 Blood Pressure [Right Arm] Blood Pressure Mean 82 Blood Pressure Mean [Right Arm] Blood Pressure Position Sitting Blood Pressure Position [Right Arm] Pulse Oximetry 100 100 99 Oxygen Delivery Method Room Air Room Air Room Air 08/10/18 19:43 08/10/18 20:00 08/10/18 20:08 Temperature Temperature Source Sepsis Recent Fever Within 48 Hours Sepsis New/Unexplained Change in Mental Status Sepsis Action Taken by Nursing Pulse Rate 81 83 Pulse Rate [Right Finger] 75 Pulse Rate from SpO2 Sensor 82 82 Pulse Rhythm Pulse Rhythm [Right Finger] Regular Pulse Strength Pulse Strength [Right Finger] Normal Respiratory Rate 18 16 16 Respiratory Effort / Characteristics Non-Labored Spontaneous Respiratory Depth Normal Respiratory Pattern Regular Blood Pressure 109/75 Blood Pressure [Right Arm] 99/66 L Blood Pressure Mean 86 Blood Pressure Mean [Right Arm] 77 Blood Pressure Position Blood Pressure Position [Right Arm] Sitting Pulse Oximetry 99 99 99 Oxygen Delivery Method Room Air 08/10/18 20:52 08/10/18 20:54 08/10/18 20:55 Temperature 37 C Temperature Source Oral Sepsis Recent Fever Within 48 Hours Sepsis New/Unexplained Change in Mental Status Sepsis Action Taken by Nursing Pulse Rate 79 76 78 Pulse Rate [Right Finger] Pulse Rate from SpO2 Sensor 79 78 Pulse Rhythm Pulse Rhythm [Right Finger] Pulse Strength Pulse Strength [Right Finger] Respiratory Rate 12 16 17 Respiratory Effort / Characteristics Respiratory Depth Respiratory Pattern Blood Pressure 109/70 109/70 Blood Pressure [Right Arm] Blood Pressure Mean 83 83 Blood Pressure Mean [Right Arm] Blood Pressure Position Blood Pressure Position [Right Arm] Pulse Oximetry 99 99 99 Oxygen Delivery Method 08/10/18 21:00 08/10/18 21:04 08/10/18 21:09 Temperature 36.6 C Temperature Source Oral Sepsis Recent Fever Within 48 Hours Sepsis New/Unexplained Change in Mental Status Sepsis Action Taken by Nursing Pulse Rate 85 82 86 Pulse Rate [Right Finger] Pulse Rate from SpO2 Sensor 85 82 Pulse Rhythm Pulse Rhythm [Right Finger] Pulse Strength Pulse Strength [Right Finger] Respiratory Rate 17 16 17 Respiratory Effort / Characteristics Respiratory Depth Respiratory Pattern Blood Pressure 106/74 113/80 113/80 Blood Pressure [Right Arm] Blood Pressure Mean 84 91 91 Blood Pressure Mean [Right Arm] Blood Pressure Position Blood Pressure Position [Right Arm] Pulse Oximetry 100 100 98 Oxygen Delivery Method 08/10/18 21:11 08/10/18 21:15 08/10/18 21:22 Temperature 36.9 C Temperature Source Oral Sepsis Recent Fever Within 48 Hours Sepsis New/Unexplained Change in Mental Status Sepsis Action Taken by Nursing Pulse Rate 86 90 84 Pulse Rate [Right Finger] Pulse Rate from SpO2 Sensor 86 89 83 Pulse Rhythm Pulse Rhythm [Right Finger] Pulse Strength Pulse Strength [Right Finger] Respiratory Rate 14 19 17 Respiratory Effort / Characteristics Respiratory Depth Respiratory Pattern Blood Pressure 112/83 115/79 113/83 Blood Pressure [Right Arm] Blood Pressure Mean 92 91 93 Blood Pressure Mean [Right Arm] Blood Pressure Position Blood Pressure Position [Right Arm] Pulse Oximetry 98 100 100 Oxygen Delivery Method 08/10/18 21:26 08/10/18 21:30 08/10/18 21:42 Temperature 37.1 C Temperature Source Oral Sepsis Recent Fever Within 48 Hours Sepsis New/Unexplained Change in Mental Status Sepsis Action Taken by Nursing Pulse Rate 82 82 81 Pulse Rate [Right Finger] Pulse Rate from SpO2 Sensor 82 83 Pulse Rhythm Pulse Rhythm [Right Finger] Pulse Strength Pulse Strength [Right Finger] Respiratory Rate 20 15 13 Respiratory Effort / Characteristics Respiratory Depth Respiratory Pattern Blood Pressure 109/79 104/78 109/79 Blood Pressure [Right Arm] Blood Pressure Mean 89 86 89 Blood Pressure Mean [Right Arm] Blood Pressure Position Blood Pressure Position [Right Arm] Pulse Oximetry 99 99 100 Oxygen Delivery Method 08/10/18 21:45 08/10/18 21:56 08/10/18 22:00 Temperature 36.8 C Temperature Source Oral Sepsis Recent Fever Within 48 Hours Sepsis New/Unexplained Change in Mental Status Sepsis Action Taken by Nursing Pulse Rate 84 89 97 H Pulse Rate [Right Finger] Pulse Rate from SpO2 Sensor 84 Pulse Rhythm Pulse Rhythm [Right Finger] Pulse Strength Pulse Strength [Right Finger] Respiratory Rate 17 18 16 Respiratory Effort / Characteristics Respiratory Depth Respiratory Pattern Blood Pressure 108/80 114/90 Blood Pressure [Right Arm] Blood Pressure Mean 89 98 Blood Pressure Mean [Right Arm] Blood Pressure Position Blood Pressure Position [Right Arm] Pulse Oximetry 100 100 Oxygen Delivery Method 08/10/18 22:40 08/11/18 00:05 Temperature Temperature Source Sepsis Recent Fever Within 48 Hours Sepsis New/Unexplained Change in Mental Status Sepsis Action Taken by Nursing Pulse Rate 79 Pulse Rate [Right Finger] 79 Pulse Rate from SpO2 Sensor 79 Pulse Rhythm Pulse Rhythm [Right Finger] Regular Pulse Strength Pulse Strength [Right Finger] Respiratory Rate 15 16 Respiratory Effort / Characteristics Non-Labored Spontaneous Respiratory Depth Normal Respiratory Pattern Blood Pressure 109/79 Blood Pressure [Right Arm] 120/78 Blood Pressure Mean 89 Blood Pressure Mean [Right Arm] 92 Blood Pressure Position Blood Pressure Position [Right Arm] Lying Pulse Oximetry 99 100 Oxygen Delivery Method Room Air GENERAL: Thin and frail. Patient is in no acute distress. HEENT: No acute trauma, normocephalic atraumatic, mucous membranes dry, no nasal congestion, no scleral icterus. NECK: No stridor, no adenopathy, no meningismus, trachea is midline. LUNGS: Clear to auscultation bilaterally, no wheeze, no rhonchi, breath sounds equal. HEART: 2/6 systolic murmur. Regular rate and rhythm. ABDOMEN: Firm, nontender, bowel sounds positive, no hernias, no peritonitis. EXTREMITIES: No cyanosis or edema, full range of motion of all the joints without pain or difficulty, no signs for acute trauma. NEUROLOGIC: Oriented x 3, no acute motor or sensory deficits, no focal weakness. SKIN: No rash, no jaundice, no diaphoresis. Course 8: Past medical records reviewed. The patient was evaluated in room C2A. A complete history and physical exam was performed. 1904: Upon review of the patient's labs done on 08/07/2018, the patient's creatinine was 0.6, potassium 2.7, alk phos 899, bilirubin 2.5, AST 123, ALT 84, hemoglobin 7.1, white count 9.9, platelet count 209, magnesium 1.5, GGTP 598, and ferritin 338. 0: I discussed the case with Caroline, the coordinator at [place], who believes that the patient needs to be transfused, but recommends talking to Dr. Fleming-Transplant Physician. 1929: I discussed the case with Dr. Fleming-Transplant Physician who recommends transfusing the patient and having her further evaluated here. 1946: I updated the patient and her father. They are both in agreement with the treatment plan. 1950: I discussed the [facility] the patient for further evaluation. 1955: The patient consented for blood and requested Benadryl for the transfusion. 2007: I discussed the case with Dr. Dorcas Kim who recommends that I talk to [facility] before he evaluates the patient further. 2013: I discussed the case with Dr. Zarate who recommends that the patient be transferred to [place]. 2017: I updated the patient and family. 2132: [facility] states that he will accept the patient in transfer to [facility]. He recommends starting a unit of blood. 2124: [facility] that [facility] is [facility] the patient. 2148: I discussed the case with Dr. Myers who accepts the patient for transfer to the [facility] ER. Consultations Consultation #1: I discussed the case with Dr. Fleming-Transplant Physician who recommends transfusing the patient and having her further evaluated here. Time: 19:30 Consultation #2: I discussed the case with Dr. [facility]oscano [facility] who accepts the patient for further evaluation. Time: 19:51 Consultation #3: I discussed the case with Dr. Toscano Hospitalist who recommends that I talk to GI before he evaluates the patient further. Time: 20:08 Additional Consultation(s): 2013: I discussed the case with Dr. Zarate who recommends that the patient be transferred to [place]. 2132: I discussed the case with Dr. Myers who states that he will accept the patient in transfer to [facility]. He recommends starting a unit of blood. 2124: I discussed the case with Dr[facility] who states that he is uncomfortable taking the patient. 2148: I discussed the case with Dr. Myers who accepts the patient for transfer [facility]. Administered Medications Duloxetine HCl (Cymbalta) 20 mg PO DAILY KETAN Stop: 09/10/18 08:59 Last Admin: 08/11/18 07:30 Dose: 20 mg Documented by: [id number] Octreotide Acetate 500 mcg/ (Sodium Chloride) 105 mls @ 10.5 mls/hr IV .Q10H KETAN Stop: 09/09/18 23:44 Last Admin: 08/11/18 09:53 Dose: 50 mcg/hr, 10.5 mls/hr Documented by: [id number] Infusion: 08/11/18 09:53 Dose: 50 mcg/hr, 10.5 mls/hr Documented by: [id number] Admin: 08/10/18 23:59 Dose: 50 mcg/hr, 10.5 mls/hr Documented by: [id number] Potassium Chloride 40 meq/ (Sodium Chloride) 1,020 mls @ 40 mls/hr IV .Q24H KETAN Stop: 09/10/18 08:29 Last Admin: 08/11/18 09:27 Dose: 40 mls/hr Documented by: [id number] Pantoprazole Sodium 40 mg/ (Dextrose) 100 mls @ 20 mls/hr IV Q5H KETAN Stop: 09/10/18 09:59 Last Admin: 08/11/18 11:07 Dose: 20 mls/hr Documented by: [id number] Levothyroxine Sodium (Synthroid) 25 mcg PO DAILYBB KETAN Stop: 09/10/18 06:29 Last Admin: 08/11/18 05:36 Dose: 25 mcg Documented by: [id number] Mycophenolate Mofetil (Cellcept) 500 mg PO BID KETAN Stop: 09/10/18 08:59 Last Admin: 08/11/18 07:29 Dose: 500 mg Documented by: [id number] Propranolol HCl (Inderal) 20 mg PO BID KETAN Stop: 09/10/18 09:59 Last Admin: 08/11/18 11:07 Dose: 20 mg Documented by: [id number] Tacrolimus (Prograf) 2 mg PO BID KETAN Stop: 09/10/18 08:59 Last Admin: 08/11/18 07:29 Dose: 2 mg Documented by: [id number] Ursodiol (Actigall) 300 mg PO BID KETAN Stop: 09/10/18 08:59 Last Admin: 08/11/18 07:30 Dose: 300 mg Documented by: [id number] Discontinued Medications Diphenhydramine HCl (Benadryl) 25 mg IV NOW STA Stop: 08/10/18 19:53 Last Admin: 08/10/18 20:48 Dose: 25 mg Documented by: [id number] Furosemide (Lasix) 20 mg PO NOW ONE Stop: 08/11/18 11:45 Last Admin: 08/11/18 12:47 Dose: 20 mg Documented by: [id number] Sodium Chloride (Nss 1000ml) 500 mls @ 999 mls/hr IV .Q31M ONE Stop: 08/10/18 19:25 Last Admin: 08/10/18 19:53 Dose: 20 mls/hr Documented by: [id number] Sodium Chloride (Nss) 250 mls @ 15 mls/hr IV .[id number] PRN PRN Reason: For Transfusion Stop: 09/09/18 19:47 Last Infusion: 08/11/18 08:53 Dose: 0 mls/hr Documented by: [id number] Admin: 08/10/18 23:59 Dose: 15 mls/hr Documented by: [id number] Octreotide Acetate 50 mcg/ (Syringe) 10 mls @ 3 mls/min IV ONE ONE Stop: 08/10/18 23:48 Last Admin: 08/10/18 23:58 Dose: 3 mls/min Documented by: [id number] Pantoprazole Sodium 40 mg/ (Syringe) 10 mls @ 5 mls/min IV ONE ONE Stop: 08/10/18 23:46 Last Admin: 08/10/18 23:57 Dose: 5 mls/min Documented by: [id number] Ceftriaxone Sodium (Rocephin) 1,000 mg in 50 mls @ 100 mls/hr IV NOW STA Stop: 08/11/18 00:05 Last Infusion: 08/11/18 02:57 Dose: 0 mls/hr Documented by: [id number] Admin: 08/11/18 02:27 Dose: 100 mls/hr Documented by: [id number] Pantoprazole Sodium 40 mg/ (Syringe) 10 mls @ 5 mls/min IV BID@0900,2100 KETAN Stop: 09/10/18 08:59 Last Admin: 08/11/18 09:55 Dose: Not Given Documented by: [id number] Lactulose (Chronulac) 30 gm PO NOW STA Stop: 08/10/18 20:10 Last Admin: 08/10/18 21:48 Dose: 30 gm Documented by: [id number] Lactulose (Chronulac) 30 gm PO NOW STA Stop: 08/11/18 02:27 Last Admin: 08/11/18 03:00 Dose: 30 gm Documented by: [id number] Lactulose (Chronulac) 30 gm PO ONE ONE Stop: 08/11/18 06:46 Last Admin: 08/11/18 07:30 Dose: 30 gm Documented by: [id number] Potassium Chloride (Klor-Con M20) 40 meq PO NOW STA Stop: 08/10/18 20:07 Last Admin: 08/10/18 21:46 Dose: 40 meq Documented by: [id number] Potassium Chloride (Klor-Con M20) 40 meq PO NOW STA Stop: 08/11/18 02:27 Last Admin: 08/11/18 03:01 Dose: 40 meq Documented by: [id number] Medical Decision Making Differential Diagnosis Differential diagnoses include GI bleeding, variceal bleeding, anemia, electrolyte imbalance, dehydration, infection, UTI, pneumonia, and others were considered. Medical Records Attestation: I reviewed the patient's medical records. Home Medications Current Medication List: was personally reviewed by me Laboratory Data Attestation: I reviewed the patient's lab results. Result diagrams: 08/11/18 07:06 08/11/18 07:06 Lab Results 08/10/18 08/10/18 08/10/18 Range/Units 19:20 19:20 19:20 WBC 10.56 (4.8-10.8) K/uL RBC 2.29 L (4.2-5.4) M/uL Hgb 6.9 L* (12.0-16.0) g/dL Hct 21.7 L (37-47) % MCV 94.8 (80-100) fL MCH 30.1 (25-34) pg MCHC 31.8 L (32-36) g/dL RDW Std Deviation 55.2 H (36.4-46.3) fL RDW Coeff of Chilo 18.8 H (11.5-14.5) % Plt Count 166 (130-400) K/uL MPV 11.2 H (7.4-10.4) fL Immature Gran % (Auto) 0.4 % Neut % (Auto) 78.2 % Lymph % (Auto) 11.6 % [place] % (Auto) 5.0 % Eos % (Auto) 4.2 % Baso % (Auto) 0.6 % Immature Gran # (Auto) 0.04 H (0.00-0.02) K/uL Neut # (Auto) 8.27 H (1.4-6.5) K/uL Lymph # (Auto) 1.22 (1.2-3.4) K/uL [place] # (Auto) 0.53 (0.11-0.59) K/uL Eos # (Auto) 0.44 (0-0.5) K/uL Baso # (Auto) 0.06 (0-0.2) K/uL Polychromasia 1+ Hypochromasia Present PT (9.0-12.0) Seconds INR (0.9-1.1) APTT (21.0-31.0) Seconds PTT Ratio Sodium 137 (136-145) mmol/L Potassium 2.8 L (3.5-5.1) mmol/L Chloride 101 (98-107) mmol/L Carbon Dioxide 32 (21-32) mmol/L Anion Gap 4.0 (3-11) BUN 12 (7-18) mg/dl Creatinine 0.46 L (0.6-1.2) mg/dl Est Cr Clr Drug Dosing 95.4 ml/min Est GFR ( Amer) > 150.0 Est GFR (Non-Af Amer) 137.3 BUN/Creatinine Ratio 25.6 H (10-20) Glucose 109 H (70-99) mg/dl Calcium 8.3 L (8.5-10.1) mg/dl Magnesium 2.1 (1.8-2.4) mg/dl Iron 43 (35-150) mcg/dl Ferritin 260.2 (8-388) ng/ml Total Bilirubin 2.3 H (0.2-1) mg/dl AST 111 H (15-37) U/L ALT 105 H (12-78) U/L Alkaline Phosphatase 1097 H (45-117) U/L Ammonia (11-32) umol/L Total Protein 8.0 (6.4-8.2) gm/dl Albumin 2.2 L (3.4-5.0) gm/dl Globulin 5.8 H (2.5-4.0) gm/dl Albumin/Globulin Ratio 0.4 L (0.9-2) TSH (0.300-4.500) uIu/ml Blood Type A Positive Antibody Screen NEGATIVE Crossmatch See Detail 08/10/18 08/10/18 08/10/18 Range/Units 19:20 19:20 19:23 WBC (4.8-10.8) K/uL RBC (4.2-5.4) M/uL Hgb (12.0-16.0) g/dL Hct (37-47) % MCV (80-100) fL MCH (25-34) pg MCHC (32-36) g/dL RDW Std Deviation (36.4-46.3) fL RDW Coeff of Chilo (11.5-14.5) % Plt Count (130-400) K/uL MPV (7.4-10.4) fL Immature Gran % (Auto) % Neut % (Auto) % Lymph % (Auto) % [place] % (Auto) % Eos % (Auto) % Baso % (Auto) % Immature Gran # (Auto) (0.00-0.02) K/uL Neut # (Auto) (1.4-6.5) K/uL Lymph # (Auto) (1.2-3.4) K/uL [place] # (Auto) (0.11-0.59) K/uL Eos # (Auto) (0-0.5) K/uL Baso # (Auto) (0-0.2) K/uL Polychromasia Hypochromasia PT 12.6 H (9.0-12.0) Seconds INR 1.2 H (0.9-1.1) APTT 29.3 (21.0-31.0) Seconds PTT Ratio 1.1 Sodium (136-145) mmol/L Potassium (3.5-5.1) mmol/L Chloride (98-107) mmol/L Carbon Dioxide (21-32) mmol/L Anion Gap (3-11) BUN (7-18) mg/dl Creatinine (0.6-1.2) mg/dl Est Cr Clr Drug Dosing ml/min Est GFR ( Amer) Est GFR (Non-Af Amer) BUN/Creatinine Ratio (10-20) Glucose (70-99) mg/dl Calcium (8.5-10.1) mg/dl Magnesium (1.8-2.4) mg/dl Iron (35-150) mcg/dl Ferritin (8-388) ng/ml Total Bilirubin (0.2-1) mg/dl AST (15-37) U/L ALT (12-78) U/L Alkaline Phosphatase (45-117) U/L Ammonia 149.0 H (11-32) umol/L Total Protein (6.4-8.2) gm/dl Albumin (3.4-5.0) gm/dl Globulin (2.5-4.0) gm/dl Albumin/Globulin Ratio (0.9-2) TSH 1.430 (0.300-4.500) uIu/ml Blood Type Antibody Screen Crossmatch Imaging Data Radiologist's Impression: Radiology results as stated below per my review and the radiologist's interpretation: XR chest 1V portable HISTORY: weakness COMPARISON: Chest 04/22/2016. FINDINGS: Right Port-A-Cath terminates at the distal SVC. Slightly rotated study. No pleural effusions. No pneumothorax. The lungs are clear. IMPRESSION: No acute process. Electronically signed by: Rian Vinson M.D. 08/10/2018 7:19 PM ECG Data Attestation: I personally reviewed and interpreted this ECG as follows: Indication: weakness Rate (beats per minute): 75 Rhythm: normal sinus Findings: + other (prolonged QTC; nonspecific ST changes) Blood Pressure Blood Pressure Findings: Normal blood pressure MDM Narrative There is no leukocytosis. The patient is anemic low with a hemoglobin of 6.9. This is below her baseline hemoglobin value. Platelet count was normal. INR was slightly elevated but there was no significant coagulopathy. No kidney failure. Potassium was low at 2.8. Liver enzymes were elevated, the alk phos was over 1 thousand. These elevations are consistent with her liver disease. Ammonia level was quite high at 149, she has had high ammonia levels before. This higher level is likely contributing to some of the confusion and slowness noticed by her father. The patient appears to be in a euthyroid state. Chest film does not show CHF or pneumonia. I did speak with the patient's transplant service in [place]. They did ariel mmend a transfusion. A unit of packed red blood cells was ordered. The patient did consent for the transfusion and the blood was administered in the ED. Patient also received IV saline for hydration. She was ordered for IV Benadryl to be given prior to her packed red blood cell transfusion. The transplant center felt she could be hospitalized at our facility. I spoke with the on-call hospitalist and the on-call GI physician. There were concerns for hospitalization at our facility and the admitting team recommended transfer to [place]. I spoke again with the transplant group in [place]. They informed me that the patient's options are very limited. Banding and any work on her varices is no longer possible. She is not a candidate for any surgical intervention or third liver transplant. Her transplant is failing. She has chronic GI bleeding that does occasionally require transfusion. They did however accept the patient in transfer. The patient's family and the patient were updated on the transfer. They did sign the appropriate paperwork. However, we were unable to obtain an ambulance for the nighttime trip. As a result, I did contact our hospital service again, they did accept the patient on their service pending transfer in the morning. The patient's family was made aware. Patient is currently resting comfortably without complaints. She is stable. Impression & Plan GI bleed, History of liver transplant, Hypokalemia, Anemia Critical Care Time Critical Care Time: Yes Total Critical Care Time: 35 I have personally spent 35 minutes of critical care time in the direct management of this patient. This includes bedside care, interpretation of diagnostic studies, and testing, discussion with consultants, patient, and family members, and other required patient management activities. This 35 minute s is in excess of all separately billable procedures. Discharge Plan Visit Data *Final* Discharge Date/Time: 08/11/18 01:54 Chief Complaint: Bleeding Stated Complaint: EXTREMELY FATIGUE AND BLEEDING ED Provider: Henry Valverde Discharge Problem: GI bleed, History of liver transplant, Hypokalemia, Anemia Patient Disposition: Admitted As Inpatient Discharge Instructions Interventions: ED Discharge Assessment Last Done: 08/11/18 01:54 Discharge Problem: GI bleed Qualifiers: GI bleed type/associated pathology: unspecified gastrointestinal hemorrhage type Qualified Code(s): K92.2 - Gastrointestinal hemorrhage, unspecified Anemia Qualifiers: Anemia type: unspecified type Qualified Code(s): D64.9 - Anemia, unspecified The scribe's documentation has been prepared under my direction and personally reviewed by me in its entirety. I confirm that the note above accurately refl ects all work, treatment, procedures, and medical decision making performed by me.
[2018-08-10] MEDS ORDERED: CONSULT PHARMACY STA (23:21)
[2018-08-10] MEDS ORDERED: NON-FORMULARY MEDICATION SCH (23:30)
[2018-08-10] MEDS ORDERED: cefTRIAXone SODIUM 1,000 MG/50 ML BAG IV STA (23:36)
[2018-08-10] MEDS ORDERED: PANTOprazole 40 MG in SYRINGE 0 ML IV ONE (23:45)
[2018-08-10] MEDS ORDERED: OCTREOTIDE ACETATE 50 MCG in SYRINGE 9.5 ML IV ONE (23:45)
[2018-08-10] MEDS: OCTREOTIDE ACETATE 500 MCG in 0.9 % SODIUM CHLORIDE 100 ML IV SCH (23:59)
[2018-08-11] MEDS ORDERED: SODIUM CHLORIDE 0.9% 250 ML IV PRN ×2 (01:26→06:37)
--- NOTE | 2018-08-11 01:26 | History & Physical Report ---
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, Prograf meds graft failure/late rejection as per records portal vein thrombosis of transplanted liver Symptomatic anemia secondary to UGIB Hemoglobin drop from baseline of 9 history of esophageal varices sp banding Hepatic encephalopathy secondary to decompensated liver disease, UGIB, electrolyte abnormalities hypothyroidism, euthyroid as of today's TSH Malnutrition (low BMI) secondary to decompensated liver disease Admit to medical telemetry until ambulance transfer available IV PPI, octreotide infusion for possible variceal bleed Transfuse PRBC to maintain hemoglobin greater than 8 (px baseline) Lactulose for hepatic encephalopathy replace electrolytes Hold home diuretics for now IV Ceftriaxone for SBP prophylaxis in light of active UGIB in cirrhotic patient DVT prophylaxis. SCDs RE UGIB Full code [facility] Transfer Center updated of patient admission. Dr. Tee will accept patient to Liver unit bed once ambulance transfer available. Total critical time was 45 minutes. Patient father requesting updates from providers. Mr. Robin Jean, contact #[phone]. History of Present Illness Chief Complaint: Melena Primary Care Provider: Marlo Jerry MD History obtained from patient and records. Medical history significant for history of biliary atresia status post liver transplantation x 2 (1992, 2006) on CellCept, Prograf meds, graft failure/late rejection as per records, portal vein thrombosis of transplanted liver, history of esophageal varices sp banding, chronic pancytopenia (baseline hemoglobin of 9), hypothyroidism, anxiety disorder. Recent confinement March 2018 for symptomatic anemia, hepatic encephalopathy. 1 week history of black tarry stools without abdominal pain/distention, emesis symptoms. No fever, no chills. Intermittent confusion noted at home as per records. Patient complaining of increased fatigue, exertional S OB. No chest pain. Outpatient hemoglobin from August 07 was 7.1. Patient brought to the emergency room by her adoptive father. 1 unit packed RBC transfused at the emergency room. [facility] GI specialist automation controls expert recommended transfer to [facility] for further evaluation management by transplant team. Patient accepted for transfer at the ER by assembler filters on-call, Dr. Tee. Transfer from the ER to [facility] ER currently precluded by ambulance unavailability. Medical History as above EGD April 2018 showed healing esophageal band ulcers. Residual grade 1/2 varices. Mild portal hypertensive gastropathy. No obvious gastric varices. 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 Allergies Allergy/AdvReac Type Severity Reaction Status Date / Time sucralfate Allergy Unknown Unknown Verified 08/10/18 18:57 Home Medications Home Medications Medication Instructions Recorded Confirmed Type albuterol sulfate [ProAir HFA] 2 puff INHALATION QID PRN 08/10/18 08/10/18 History cetirizine 10 mg PO DAILY PRN 08/10/18 08/10/18 History dicyclomine 20 mg PO BID 08/10/18 08/10/18 History duloxetine [Cymbalta] 20 mg PO DAILY 08/10/18 08/10/18 History food supplemt, lactose-reduced 1 ea PO QID 08/10/18 08/10/18 History [Boost Breeze Nutritional] furosemide [Lasix] 40 mg PO DAILY 08/10/18 08/10/18 History levothyroxine 25 mcg PO DAILY 08/10/18 08/10/18 History lorazepam [Lorazepam Intensol] 1 mg PO ACHS PRN 08/10/18 08/10/18 History montelukast [Singulair] 10 mg PO DAILY PRN 08/10/18 08/10/18 History mycophenolate mofetil [CellCept] 500 mg PO BID 08/10/18 08/10/18 History norethindrone (contraceptive) 0.35 mg PO DAILY 08/10/18 08/10/18 History nortriptyline [Pamelor] 25 - 50 mg PO HS 08/10/18 08/10/18 History omeprazole 40 mg PO BID 08/10/18 08/10/18 History potassium chloride [Klor-Con M20] 40 meq PO DAILY 08/10/18 08/10/18 History propranolol 40 mg PO BID 08/10/18 08/10/18 History sod phos di, mono-K phos mono 1 tab PO UD 08/10/18 08/10/18 History [Phospha 250 Neutral] spironolactone [Aldactone] 50 mg PO DAILY 08/10/18 08/10/18 History tacrolimus [Prograf] 2 mg PO AMPM 08/10/18 08/10/18 History ursodiol [Actigall] 300 mg PO BID 08/10/18 08/10/18 History propranolol 20 mg PO BID 7 Days #14 tab 08/11/18 Rx Past Med/Surg History Medical History Abdominal pain Congenital biliary atresia GI bleed Hyperammonemia Pancytopenia Severe anemia Symptomatic anemia Surgical History H/O colonoscopy History of esophagogastroduodenoscopy (EGD) Liver transplant recipient x2 Social History Preferred Language: Japanese Communication Ability: Effective Lockstitch Coat Joiner Required: No Beliefs That Will Affect Care: None Current Living Situation: Parent Other Information That Helps Us Care for You: No Feels Safe at Home: Yes Safety Concerns: Feels Safe At This Time Smoking Status: Never smoker Second Hand Exposure: No Hx Alcohol Use: No Hx Substance Use: No Review of Systems Review of Systems: As per HPI, all 10 systems reviewed, all other ROS negative Physical Exam Physical Exam: GENERAL: chronically ill, underweight, looks younger for stated age, no respiratory distress SKIN: Pallor , warm HEENT: Pale palpebral conjunctivae, no ptosis, dry buccal mucosa NECK : Supple, no tenderness CHEST : Decreased breath sounds , no tenderness HEART : RRR, no obvious murmurs ABDOMEN: Some distention, healed incisional scars, nontender EXTREMITIES : No LE swelling/tenderness, no other conspicuous deformities noted NEUROLOGIC : Coherent but occasional slowed response to questions, no facial asymmetry, no other gross focality Results & Data Vital Signs (Past 12 Hours) Vital Signs Temp Pulse Pulse Resp BP BP Pulse Ox 08/11/18 00:05 79 16 120/78 100 08/10/18 22:40 79 15 109/79 99 08/10/18 22:00 97 H 16 08/10/18 21:56 36.8 C 89 18 114/90 100 08/10/18 21:45 84 17 108/80 100 08/10/18 21:42 81 13 109/79 100 08/10/18 21:30 82 15 104/78 99 08/10/18 21:26 37.1 C 82 20 109/79 99 08/10/18 21:22 84 17 113/83 100 08/10/18 21:15 90 19 115/79 100 08/10/18 21:11 36.9 C 86 14 112/83 98 08/10/18 21:09 36.6 C 86 17 113/80 98 08/10/18 21:04 82 16 113/80 100 08/10/18 21:00 85 17 106/74 100 08/10/18 20:55 78 17 109/70 99 08/10/18 20:54 37 C 76 16 109/70 99 08/10/18 20:52 79 12 99 08/10/18 20:08 83 16 99 08/10/18 20:00 81 16 109/75 99 08/10/18 19:43 75 18 99/66 L 99 08/10/18 19:42 99 08/10/18 19:41 75 18 100 08/10/18 18:17 36.8 C 81 18 104/71 100 Laboratory Results Laboratory Results WBC 10.56 K/uL (4.8-10.8) 08/10/18 19:20 RBC 2.29 M/uL (4.2-5.4) L 08/10/18 19:20 Hgb 6.9 g/dL (12.0-16.0) L* 08/10/18 19:20 Hct 21.7 % (37-47) L 08/10/18 19:20 MCV 94.8 fL (80-100) 08/10/18 19:20 MCH 30.1 pg (25-34) 08/10/18 19:20 MCHC 31.8 g/dL (32-36) L 08/10/18 19:20 RDW Std Deviation 55.2 fL (36.4-46.3) H 08/10/18 19:20 RDW Coeff of [place] 18.8 % (11.5-14.5) H 08/10/18 19:20 Plt Count 166 K/uL (130-400) 08/10/18 19:20 MPV 11.2 fL (7.4-10.4) H 08/10/18 19:20 Immature Gran % (Auto) 0.4 % 08/10/18 19:20 Neut % (Auto) 78.2 % 08/10/18 19:20 Lymph % (Auto) 11.6 % 08/10/18 19:20 [place] % (Auto) 5.0 % 08/10/18 19:20 Eos % (Auto) 4.2 % 08/10/18 19:20 Baso % (Auto) 0.6 % 08/10/18 19:20 Immature Gran # (Auto) 0.04 K/uL (0.00-0.02) H 08/10/18 19:20 Neut # (Auto) 8.27 K/uL (1.4-6.5) H 08/10/18 19:20 Lymph # (Auto) 1.22 K/uL (1.2-3.4) 08/10/18 19:20 [place] # (Auto) 0.53 K/uL (0.11-0.59) 08/10/18 19:20 Eos # (Auto) 0.44 K/uL (0-0.5) 08/10/18 19:20 Baso # (Auto) 0.06 K/uL (0-0.2) 08/10/18 19:20 Polychromasia 1+ 08/10/18 19:20 Hypochromasia Present 08/10/18 19:20 PT 12.6 Seconds (9.0-12.0) H 08/10/18 19:20 INR 1.2 (0.9-1.1) H 08/10/18 19:20 APTT 29.3 Seconds (21.0-31.0) 08/10/18 19:20 PTT Ratio 1.1 08/10/18 19:20 Sodium 137 mmol/L (136-145) 08/10/18 19:20 Potassium 2.8 mmol/L (3.5-5.1) L 08/10/18 19:20 Chloride 101 mmol/L (98-107) 08/10/18 19:20 Carbon Dioxide 32 mmol/L (21-32) 08/10/18 19:20 Anion Gap 4.0 (3-11) 08/10/18 19:20 BUN 12 mg/dl (7-18) 08/10/18 19:20 Creatinine 0.46 mg/dl (0.6-1.2) L 08/10/18 19:20 Est Cr Clr Drug Dosing 95.4 ml/min 08/10/18 19:20 Est GFR ( Amer) > 150.0 08/10/18 19:20 Est GFR (Non-Af Amer) 137.3 08/10/18 19:20 BUN/Creatinine Ratio 25.6 (10-20) H 08/10/18 19:20 Glucose 109 mg/dl (70-99) H 08/10/18 19:20 Calcium 8.3 mg/dl (8.5-10.1) L 08/10/18 19:20 Magnesium 2.1 mg/dl (1.8-2.4) 08/10/18 19:20 Iron 43 mcg/dl (35-150) 08/10/18 19:20 Ferritin 260.2 ng/ml (8-388) 08/10/18 19:20 Total Bilirubin 2.3 mg/dl (0.2-1) H 08/10/18 19:20 AST 111 U/L (15-37) H 08/10/18 19:20 ALT 105 U/L (12-78) H 08/10/18 19:20 Alkaline Phosphatase 1097 U/L (45-117) H 08/10/18 19:20 Ammonia 149.0 umol/L (11-32) H 08/10/18 19:23 Total Protein 8.0 gm/dl (6.4-8.2) 08/10/18 19:20 Albumin 2.2 gm/dl (3.4-5.0) L 08/10/18 19:20 Globulin 5.8 gm/dl (2.5-4.0) H 08/10/18 19:20 Albumin/Globulin Ratio 0.4 (0.9-2) L 08/10/18 19:20 TSH 1.430 uIu/ml (0.300-4.500) 08/10/18 19:20 Blood Type A Positive 08/10/18 19:20 Antibody Screen NEGATIVE 08/10/18 19:20 Crossmatch See Detail 08/10/18 19:20 Diagnostic Findings Chest x-ray showed no acute process EKG as per my interpretation : Rate 75, NSR, T wave inversion septal leads
[2018-08-11] MEDS ORDERED: TRAMADOL HCL 50 MG TABLET PO PRN (02:26)
[2018-08-11] MEDS ORDERED: CETIRIZINE HCL 10 MG TABLET PO PRN (02:26)
[2018-08-11] MEDS ORDERED: MONTELUKAST SODIUM 10 MG TABLET PO PRN (02:26)
[2018-08-11] MEDS ORDERED: LORazepam 0.25 MG/0.5 ML VIAL IV PRN (02:26)
[2018-08-11] MEDS ORDERED: PROMETHAZINE HCL 12.5 MG in SODIUM CHLORIDE 0.9% 50 ML IV PRN (02:26)
[2018-08-11] MEDS ORDERED: LACTULOSE SYRUP 30 GM/45 ML UDP PO STA (02:26)
[2018-08-11] MEDS ORDERED: POTASSIUM CHLORIDE 20 MEQ TABCR PO STA (02:26)
[2018-08-11] MEDS ORDERED: ACETAMINOPHEN 325 MG TAB PO PRN (02:26)
[2018-08-11] MEDS ORDERED: LEVOTHYROXINE SODIUM 25 MCG TABLET PO SCH (06:30)
[2018-08-11] MEDS ORDERED: LACTULOSE SYRUP 30 GM/45 ML UDP PO ONE (06:45)
[2018-08-11 07:18] LABS: Basophils # (auto) 0.05 K/uL (0-0.2); Basophils % (auto) 0.5 %; Eosinophils # (auto) 0.31 K/uL (0-0.5); Eosinophils % (auto) 2.8 %; Hematocrit (blood only) 27.2 % (37-47); Hemoglobin 8.8 g/dL (12.0-16.0); Immature Granulocytes # (auto) 0.04 K/uL (0.00-0.02); Immature Granulocytes % (auto) 0.4 %; Lymphocytes # (auto) 1.12 K/uL (1.2-3.4); Lymphocytes % (auto) 10.1 %; Mean Corpuscular Hgb Conc 32.4 g/dL (32-36); Mean Corpuscular Volume 92.5 fL (80-100); Mean Platelet Volume 11.4 fL (7.4-10.4); Monocytes # (auto) 0.48 K/uL (0.11-0.59); Monocytes % (auto) 4.3 %; Neutrophils # (auto) 9.06 K/uL (1.4-6.5); Neutrophils % (auto) 81.9 %; Platelet Count 179 K/uL (130-400); RDW Coefficient of Variation 18.7 % (11.5-14.5); RDW Standard Deviation 53.3 fL (36.4-46.3); Red Blood Count 2.94 M/uL (4.2-5.4); White Blood Count 11.06 K/uL (4.8-10.8)
[2018-08-11 07:57] LABS: Alanine Aminotransferase 103 U/L (12-78); Albumin Level 2.2 gm/dl (3.4-5.0); Aspartate Aminotransferase 113 U/L (15-37); BUN Creatinine Ratio 23.3 (10-20); Blood Urea Nitrogen 13 mg/dl (7-18); Calcium 8.6 mg/dl (8.5-10.1); Carbon Dioxide 30 mmol/L (21-32); Chloride 105 mmol/L (98-107); Creatinine Clr Calc Pharmacy 81.5 ml/min; Est GFR (African American) > 150.0; Est GFR (Non-African American) 130.2; Glucose 112 mg/dl (70-99); Potassium 3.6 mmol/L (3.5-5.1); Sodium 143 mmol/L (136-145)
[2018-08-11 08:04] LABS: Albumin Globulin Ratio 0.4 (0.9-2); Alkaline Phosphatase 1037 U/L (45-117); Bilirubin,Total 3.6 mg/dl (0.2-1); Globulin 5.5 gm/dl (2.5-4.0); Total Protein 7.7 gm/dl (6.4-8.2)
[2018-08-11] MEDS ORDERED: POTASSIUM CHLORIDE 40 MEQ in SODIUM CHLORIDE 0.9% 1000ML 1,000 ML IV SCH (08:30)
[2018-08-11] MEDS ORDERED: MYCOPHENOLATE MOFETIL 250 MG CAP PO SCH (09:00)
[2018-08-11] MEDS ORDERED: DULOXETINE HCL 20 MG CAP PO SCH (09:00)
[2018-08-11] MEDS ORDERED: TACROLIMUS 1 MG CAP PO SCH (09:00)
[2018-08-11] MEDS ORDERED: PANTOprazole 40 MG in SYRINGE 0 ML IV SCH (09:00)
[2018-08-11] MEDS ORDERED: URSODIOL 300 MG CAP PO SCH (09:00)
--- NOTE | 2018-08-11 09:51 | Hospitalist Progress Note ---
Date of Service August 11, 2018 Assessment & Plan (1) Decompensated liver disease: Hepatic encephalopathy secondary to decompensated liver disease, UGIB, electrolyte abnormalities history of biliary atresia status post liver transplantation x 2 (1992, 2006) on CellCept, Prograf meds graft failure/late rejection as per records vein thrombosis of transplanted liver AST/ALT 113/103, ALK PHOS 1037, T CALEB 3.6 Ammonia 118 given Lactulose x 3 doses oriented x 3 on exam today further management per Hepatology/Liver Transplant [facility] continue usual antirejection medications Symptomatic anemia secondary to UGIB Hemoglobin drop of 6.9 from baseline of 9 history of esophageal varices sp banding s/p 2 units pRBC transfusion Hg improved to 8.8 Lasix 20mg po given given Protonix IV, Octreotide, Ceftriaxone no signs of melena/hematochezia since last night Sinus Tachycardia likely from anemia asymptomatic continue Propranolol, reduced to 20mg BID due to BP on the lower side diuretics also held for now, monitor and resume accordingly patient reports her HR tends to be on the high side monitor in Tele hypothyroidism, euthyroid based on TSH Malnutrition (low BMI) secondary to decompensated liver disease DVT prophylaxis. SCDs RE UGIB Full code patient to be transferred to [facility] today, bed available accepted by Dr. Tee Subjective ff up for anemia, possible GI Bleed, Decompensated Liver Disease seen sitting up at the edge of the bed alert, oriented x 3, comfortable not in distress, pleasant states she feels better compared to yesterday "less achy", no chest pain, shortness of breath, palpitations, dizziness no melena/hematochezia since admission, last BM was last night- brown denies other symptoms Review of Systems Review of Systems: All systems reviewed & are unremarkable except as noted in HPI & below Physical Exam Physical Exam: General- oriented x 3, not in distress, speaks in sentences with no effort or accessory muscle use cachectic Head- atraumatic Eyes- PERRL, EOMI, anicteric ENT- oropharynx clear Neck- supple, no JVD, no adenopathy, no thyromegaly; carotids +2/2, no bruits appreciated Lungs-faint rales at the bases, no wheezing good air entry bilaterally Heart-tachycardic, regular rhythm; no murmur, no gallop, no rub appreciated Abdomen- normal bowel sounds, nondistended, soft, nontender, no masses or hepatosplenomegaly Extremities- no pretibial edema, no calf tenderness; peripheral pulses intact Neuro- alert, oriented x 3; CN 2-12 grossly intact; motor 5/5 bilaterally;sensation 100% on all extremities; no other gross focal neurologic deficits Skin- warm & dry Results & Data Vital Signs (Past 12 Hours) Vital Signs Temp Pulse Pulse Resp BP BP Pulse Ox 08/11/18 08:25 36.9 C 112 H 18 114/85 96 08/11/18 07:48 115 H 08/11/18 07:16 37 C 103 H 18 106/76 08/11/18 03:45 93 H 08/11/18 02:29 36.9 C 76 18 100/66 98 08/11/18 01:33 36.9 C 86 18 120/80 97 08/11/18 00:05 79 16 120/78 100 08/10/18 22:40 79 15 109/79 99 08/10/18 22:00 97 H 16 08/10/18 21:56 36.8 C 89 18 114/90 100 Laboratory Results Laboratory Results - last 24 hr 08/10/18 08/10/18 08/10/18 19:20 19:20 19:20 WBC 10.56 RBC 2.29 L Hgb 6.9 L* Hct 21.7 L MCV 94.8 MCH 30.1 MCHC 31.8 L RDW Std Deviation 55.2 H RDW Coeff of Chilo 18.8 H Plt Count 166 MPV 11.2 H Immature Gran % (Auto) 0.4 Neut % (Auto) 78.2 Lymph % (Auto) 11.6 [place] % (Auto) 5.0 Eos % (Auto) 4.2 Baso % (Auto) 0.6 Immature Gran # (Auto) 0.04 H Neut # (Auto) 8.27 H Lymph # (Auto) 1.22 [place] # (Auto) 0.53 Eos # (Auto) 0.44 Baso # (Auto) 0.06 Polychromasia 1+ Hypochromasia Present PT INR APTT PTT Ratio Sodium 137 Potassium 2.8 L Chloride 101 Carbon Dioxide 32 Anion Gap 4.0 BUN 12 Creatinine 0.46 L Est Cr Clr Drug Dosing 95.4 Est GFR ( Amer) > 150.0 Est GFR (Non-Af Amer) 137.3 BUN/Creatinine Ratio 25.6 H Glucose 109 H Calcium 8.3 L Magnesium 2.1 Iron 43 Ferritin 260.2 Total Bilirubin 2.3 H AST 111 H ALT 105 H Alkaline Phosphatase 1097 H Ammonia Total Protein 8.0 Albumin 2.2 L Globulin 5.8 H Albumin/Globulin Ratio 0.4 L TSH Blood Type A Positive Antibody Screen NEGATIVE Crossmatch See Detail 08/10/18 08/10/18 08/10/18 19:20 19:20 19:23 WBC RBC Hgb Hct MCV MCH MCHC RDW Std Deviation RDW Coeff of [place]ilo Plt Count MPV Immature Gran % (Auto) Neut % (Auto) Lymph % (Auto) [place] % (Auto) Eos % (Auto) Baso % (Auto) Immature Gran # (Auto) Neut # (Auto) Lymph # (Auto) [place] # (Auto) Eos # (Auto) Baso # (Auto) Polychromasia Hypochromasia PT 12.6 H INR 1.2 H APTT 29.3 PTT Ratio 1.1 Sodium Potassium Chloride Carbon Dioxide Anion Gap BUN Creatinine Est Cr Clr Drug Dosing Est GFR ( Amer) Est GFR (Non-Af Amer) BUN/Creatinine Ratio Glucose Calcium Magnesium Iron Ferritin Total Bilirubin AST ALT Alkaline Phosphatase Ammonia 149.0 H Total Protein Albumin Globulin Albumin/Globulin Ratio TSH 1.430 Blood Type Antibody Screen Crossmatch 08/11/18 08/11/18 08/11/18 07:06 07:06 07:06 WBC 11.06 H RBC 2.94 L Hgb 8.8 L Hct 27.2 L MCV 92.5 MCH 29.9 MCHC 32.4 RDW Std Deviation 53.3 H RDW Coeff of [place] 18.7 H Plt Count 179 MPV 11.4 H Immature Gran % (Auto) 0.4 Neut % (Auto) 81.9 Lymph % (Auto) 10.1 [place] % (Auto) 4.3 Eos % (Auto) 2.8 Baso % (Auto) 0.5 Immature Gran # (Auto) 0.04 H Neut # (Auto) 9.06 H Lymph # (Auto) 1.12 L [place] # (Auto) 0.48 Eos # (Auto) 0.31 Baso # (Auto) 0.05 Polychromasia Hypochromasia PT INR APTT PTT Ratio Sodium 143 Potassium 3.6 D Chloride 105 Carbon Dioxide 30 Anion Gap 8.0 BUN 13 Creatinine 0.54 L Est Cr Clr Drug Dosing 81.5 Est GFR ( Amer) > 150.0 Est GFR (Non-Af Amer) 130.2 BUN/Creatinine Ratio 23.3 H Glucose 112 H Calcium 8.6 Magnesium Iron Ferritin Total Bilirubin 3.6 H D AST 113 H ALT 103 H Alkaline Phosphatase 1037 H Ammonia 118.2 H Total Protein 7.7 Albumin 2.2 L Globulin 5.5 H Albumin/Globulin Ratio 0.4 L TSH Blood Type Antibody Screen Crossmatch
[2018-08-11] MEDS: OCTREOTIDE ACETATE 500 MCG in 0.9 % SODIUM CHLORIDE 100 ML IV SCH (09:53)
[2018-08-11] MEDS ORDERED: PROPRANOLOL HCL 20 MG TAB PO SCH (10:00)
[2018-08-11] MEDS ORDERED: PANTOprazole 40 MG in DEXTROSE 5% 100 ML IV SCH (10:00)
[2018-08-11] MEDS ORDERED: FUROSEMIDE 20 MG TAB PO ONE (11:44)
--- NOTE | 2018-08-11 11:48 | Discharge Summary ---
Date of Service August 11, 2018 Admission HPI Per Admitting Provider History obtained from patient and records. Medical history significant for history of biliary atresia status post liver transplantation x 2 (1992, 2006) on CellCept, Prograf meds, graft failure/late rejection as per records, portal vein thrombosis of transplanted liver, history of esophageal varices sp banding, chronic pancytopenia (baseline hemoglobin of 9), hx internal hemorrhoids, hypothyroidism, anxiety disorder. Recent confinement March 2018 for symptomatic anemia, hepatic encephalopathy. 1 week history of black tarry stools without abdominal pain/distention, emesis symptoms. No fever, no chills. Intermittent confusion noted at home as per records. Patient complaining of increased fatigue, exertional S OB. No chest pain. Outpatient hemoglobin from August 07 was 7.1. Patient brought to the emergency room by her adoptive father. 1 unit packed RBC transfused at the emergency room. G GI specialist president financial institution recommended transfer to [facility] for further evaluation management by transplant team. Patient accepted for transfer at the ER by respiratory supervisor on-call, Dr. Tee. Transfer from the ER to [facility] ER currently precluded by ambulance unavailability. Admission Exam Per Admitting Provider GENERAL: Thin and frail. Patient is in no acute distress. HEENT: No acute trauma, normocephalic atraumatic, mucous membranes dry, no nasal congestion, no scleral icterus. NECK: No stridor, no adenopathy, no meningismus, trachea is midline. LUNGS: Clear to auscultation bilaterally, no wheeze, no rhonchi, breath sounds equal. HEART: 2/6 systolic murmur. Regular rate and rhythm. ABDOMEN: Firm, nontender, bowel sounds positive, no hernias, no peritonitis. EXTREMITIES: No cyanosis or edema, full range of motion of all the joints without pain or difficulty, no signs for acute trauma. NEUROLOGIC: Oriented x 3, no acute motor or sensory deficits, no focal weakness. SKIN: No rash, no jaundice, no diaphoresis. Principal Diagnosis ANEMIA, GI BLEED,POSSIBLE DECOMPENSATED LIVER DISEASE Discharge Exam General- oriented x 3, not in distress, speaks in sentences with no effort or accessory muscle use cachectic Head- atraumatic Eyes- PERRL, EOMI, anicteric ENT- oropharynx clear Neck- supple, no JVD, no adenopathy, no thyromegaly; carotids +2/2, no bruits appreciated Lungs-faint rales at the bases, no wheezing good air entry bilaterally Heart-tachycardic, regular rhythm; no murmur, no gallop, no rub appreciated Abdomen- normal bowel sounds, nondistended, soft, nontender, no masses or hepatosplenomegaly Extremities- no pretibial edema, no calf tenderness; peripheral pulses intact Neuro- alert, oriented x 3; CN 2-12 grossly intact; motor 5/5 bilaterally;sensation 100% on all extremities; no other gross focal neurologic deficits Skin- warm & dry Discharge Data Allergies Allergy/AdvReac Type Severity Reaction Status Date / Time sucralfate Allergy Unknown Unknown Verified 08/10/18 18:57 Consultations 08/10/18 19:52 ED Decision to Admit Stat Hospital Course (1) Decompensated liver disease: Hepatic encephalopathy secondary to decompensated liver disease, UGIB, electrolyte abnormalities history of biliary atresia status post liver transplantation x 2 (1992, 2006) on CellCept, Prograf meds graft failure/late rejection as per records vein thrombosis of transplanted liver AST/ALT 113/103, ALK PHOS 1037, T CALEB 3.6 Ammonia 149-->118 given Lactulose x 3 doses oriented x 3 on exam today further management per Hepatology/Liver Transplant [facility] continue usual antirejection medications Symptomatic anemia secondary to UGIB Hemoglobin drop of 6.9 from baseline of 9 history of esophageal varices sp banding s/p 2 units pRBC transfusion Hg improved to 8.8 Lasix 20mg po given given Protonix IV, Octreotide, Ceftriaxone no signs of melena/hematochezia since last night Sinus Tachycardia likely from anemia asymptomatic continue Propranolol, reduced to 20mg BID due to BP on the lower side diuretics also held for now, monitor and resume accordingly patient reports her HR tends to be on the high side monitor in Tele hypothyroidism, euthyroid based on TSH Malnutrition (low BMI) secondary to decompensated liver disease DVT prophylaxis. SCDs RE UGIB Full code patient to be transferred to [facility] today, bed available accepted by Dr. Tee Total Time Total Time Spent Total Time Spent (In Minutes): 50 MINUTES Discharge Plan Discharge Items Patient Disposition: Transfer Acute Care Hospital Reason For Visit: ANEMIA; GI BLEED Discharge Diagnosis: ANEMIA, POSSIBLE GI BLEED, DECOMPENSATION OF LIVER DISEASE Discharge Goals: Diagnostic testing and Therapeutic intervention Activity: As commented below Activity Comment: BEDREST Lifting: Wait until after follow-up appointment Exercise/Sports: Wait until after follow-up appointment Non-emergency contact: Primary Care Provider Call non-emergency contact if: you have any medication questions Follow-up/Referrals: Marlo Jerry MD [Primary Care Provider] - Diet: See below Diet Comment: NPO EXCEPT MEDS Addtl Provider Instructions: PLEASE REFER TO [facility] DISCHARGE SUMMARY FOR FURTHER DETAILS. Prescriptions: New propranolol 20 mg Tablet 20 mg PO BID 7 Days Qty: 14 RF: 0 Continued cetirizine 10 mg Tablet 10 mg PO DAILY PRN (Reason: allergies) RF: 0 levothyroxine 25 mcg tablet 25 mcg PO DAILY RF: 0 mycophenolate mofetil [CellCept] 500 mg Tablet 500 mg PO BID RF: 0 nortriptyline [Pamelor] 25 mg capsule 25 - 50 mg PO HS RF: 0 dicyclomine 20 mg Tablet 20 mg PO BID RF: 0 ursodiol [Actigall] 300 mg Capsule 300 mg PO BID RF: 0 montelukast [Singulair] 10 mg Tablet 10 mg PO DAILY PRN (Reason: allergies) RF: 0 albuterol sulfate [ProAir HFA] 90 mcg/actuation Hfa Aerosol Inhaler 2 puff INHALATION QID PRN (Reason: Shortness Of Breath Or Wheezing) RF: 0 tacrolimus [Prograf] 1 mg capsule 2 mg PO AMPM RF: 0 duloxetine [Cymbalta] 20 mg capsule,delayed release(DR/EC) 20 mg PO DAILY RF: 0 Boost Breeze Nutritional 0.04-1.05 gram-kcal/mL Liquid 1 ea PO QID RF: 0 Discontinued furosemide [Lasix] 40 mg tablet 40 mg PO DAILY RF: 0 omeprazole 40 mg capsule,delayed release(DR/EC) 40 mg PO BID RF: 0 potassium chloride [Klor-Con M20] 20 mEq tablet,ER particles/crystals 40 meq PO DAILY RF: 0 Phospha 250 Neutral 250 mg Tablet 1 tab PO UD RF: 0 norethindrone (contraceptive) 0.35 mg tablet 0.35 mg PO DAILY RF: 0 lorazepam [Lorazepam Intensol] 2 mg/mL concentrate 1 mg PO ACHS PRN (Reason: emesis) RF: 0 spironolactone [Aldactone] 50 mg tablet 50 mg PO DAILY RF: 0 propranolol 20 mg tablet 40 mg PO BID RF: 0 Stand-Alone Forms: [facility] Discharge Orders: Discharge Order (Routine); Ordered 08/11/18 Ordered By: Bk Weaver Admission Data Admit Date/Time: 08/11/18 01:30 Attending Provider: Bk Weaver Admit Provider: William Irizarry Primary Care Provider: Marlo Jerry I. Other Providers: William Irizarry Service: Telemetry Medical Other Interventions: Discharge Summary Assessment (RN) Last Done: 08/11/18 11:02
[2018-08-12] MEDS ORDERED: cefTRIAXone SODIUM 1,000 MG in DEXTROSE 5% 50 ML IV SCH (02:00)
== END 2018-08-11 14:16 | disposition short-term general hospital (02) | DRG 378 ==
LOC: ED 17:35 → 2W 08-11 01:30